=== PATIENT | female | born 1955 | race Caucasian/White ===

== ENCOUNTER → 2021-06-19 13:07 | Outpatient (BNVA) | payer OTHER, SELFPAY | PROVIDERS: PCP Internal Medicine; Visit Provider Internal Medicine | DX: I25.10 Atherosclerotic heart disease of native coronary artery without angina pectoris (principal); I10 Essential (primary) hypertension; G47.33 Obstructive sleep apnea (adult) (pediatric); E11.8 Type 2 diabetes mellitus with unspecified complications; Z95.1 Presence of aortocoronary bypass graft | CPT/HCPCS: 93005; 99212 ==

== ENCOUNTER → 2021-08-17 13:02 | Outpatient (REF) | payer OTHER, SELFPAY ==
--- NOTE | 2021-08-17 13:07 | CA_ITS ---
Transthoracic Echocardiogram Patient (Last, First, Middle): Sally Rodriguez, Gender: Female Date of : 1955 Age: 65 Procedure Date: 08/17/2021 Procedure Type: Transthoracic Echocardiogram Location: OP Height: 154.94 cm Weight: 79.38 kg BSA: 1.78 m2 Heart Rate: bpm BP: 122 / 64 mmHg Mat Linker: ROSA Referring MD: Brett Mena MD Symptoms: I25.10 - Atherosclerotic heart disease of [place] coronary... Study Quality: Fair Conclusions: - Normal left ventricular size, thickness, and systolic function. The visually estimated ejection fraction is between 55-60%. - Normal right ventricular cavity size and systolic function. - The left atrium is mildly dilated. The right atrium is normal in size. Findings Left Ventricle Normal left ventricular size, thickness, and systolic function. The visually estimated ejection fraction is between 55-60%. Regional wall motion abnormalities can not be excluded due to suboptimal endocardial definition. Diastolic function is normal for age. Right Ventricle Normal right ventricular cavity size and systolic function. Atria The left atrium is mildly dilated. The right atrium is normal in size. Aortic Valve Normal aortic valve structure and function. There is no aortic valve stenosis. There is trace (trivial) aortic valve regurgitation. Mitral Valve Normal mitral valve structure and function. There is no mitral valve regurgitation. There is no mitral valve stenosis. Pulmonic Valve Normal pulmonic valve structure and function. There is trace pulmonic valve regurgitation. Tricuspid Valve Normal tricuspid valve structure and function. There is mild to moderate tricuspid valve regurgitation. Normal right atrial pressure. There is no evidence of pulmonary hypertension. Great Vessels All visible segments of the aorta are normal in size. The visualized portions of the pulmonary artery and branches are normal. Venous The inferior vena cava is normal in size and collapses greater than 50% with inspiration. Pericardium/Pleural There is no evidence of pericardial effusion. Prior Study Comparison No prior study available for comparison. Recommendations, Care & Conclusions Recommend contrast in the future to improve endocardial definition. Measurements 2D Linear Measurements IVSd: 0.81 0.6-0.9/0.6-1.0 cm LVIDd: 5.19 3.9-5.3/4.2-5.9 cm LVIDd Index: 2.92 2.4-3.2/2.2-3.1 cm/m2 LVIDs: 2.98 2.0-3.6 cm LVPWd: 0.83 0.7-1.1 cm LA Diam: 4.10 2.7-3.8/3.0-4.0 cm LAIDs Index: 2.30 1.5-2.3 cm/m2 LV Mass: 185.82 67-162/88-224 g LV Mass Index: 104.39 43-95/49-115 g/m2 LVOT Diam: 2.00 3.0+(-)1.3 cm 2D Systolic Function EF 4C: 66.50 >55% EF 2C: 64.00 >55% EF BiP: 63.70 >55% Mitral Valve MV Pk E: 0.90 MV PK A: 0.64 MV Decel Time: 184.00 E/A: 1.40 E'Lateral: 14.90 E'Medial: 7.72 E/E' Med: 11.70 E/E' Lat: 6.10 PHT: 54.00 MVA PHT: 4.07 Decel [place]: 4.91 Aortic Valve AoV Pk Edi: 1.61 AoV Mn Edi: 1.02 AoV VTI: 0.36 AoV Pk Grad: 10.00 Aov Mn Grad: 5.00 MERYL Cont.VTI: 2.51 LVOT LVOT Pk Edi: 1.23 LVOT Mn Edi: 0.78 LVOT VTI: 0.29 LVOT Pk Grad: 6.00 LVOT Mn Grad: 3.00 LVOT Diam: 2.00 LVOT Area: 3.14 Diastolic Function MV Pk E: 0.90 MV Pk A: 0.64 E/A: 1.40 E'Medial: 7.72 E/E' Med: 11.70 E' Laterial: 14.90 E/E' Lat: 6.10 Right Ventricle TAPSE (mm): 19.10 TVS' Edi: 10.00 Tricuspid Valve TR Pk Edi: 2.51 TR Pk Grad: 25.00 RA Press: 3.00 RVSP: 28.00 Great Vessels Aorta Sinus of Valsalva: 2.78 2.0-3.[address] [place]: 2.35 1.7-3.4 cm Ao Asc: 2.70 2.1-3.4 cm Ao Arch: 3.00 Updated in Other Vendor System with Status of Final Milo Alvares MD electronically signed on 08/19/2021 10:17:16 PM with status of Final
== END ==
LOC: HO.CARD 13:02
PROVIDERS: Visit Provider Internal Medicine
DX: I25.10 Atherosclerotic heart disease of native coronary artery without angina pectoris (principal); Z95.1 Presence of aortocoronary bypass graft
CPT/HCPCS: 93306

== ENCOUNTER → 2021-09-19 15:11 | Outpatient (BNVA) | payer OTHER, SELFPAY | PROVIDERS: PCP Internal Medicine; Visit Provider Internal Medicine | DX: I25.10 Atherosclerotic heart disease of native coronary artery without angina pectoris (principal); I10 Essential (primary) hypertension; I65.23 Occlusion and stenosis of bilateral carotid arteries; E11.8 Type 2 diabetes mellitus with unspecified complications; G47.33 Obstructive sleep apnea (adult) (pediatric); Z95.1 Presence of aortocoronary bypass graft | CPT/HCPCS: 99212 ==

== ENCOUNTER → 2022-03-13 15:00 | Outpatient (BNVA) | payer OTHER, SELFPAY | PROVIDERS: PCP Internal Medicine; Visit Provider Internal Medicine | DX: I25.10 Atherosclerotic heart disease of native coronary artery without angina pectoris (principal); I65.23 Occlusion and stenosis of bilateral carotid arteries; R07.2 Precordial pain; I10 Essential (primary) hypertension; E11.8 Type 2 diabetes mellitus with unspecified complications; G47.33 Obstructive sleep apnea (adult) (pediatric); Z95.1 Presence of aortocoronary bypass graft | CPT/HCPCS: 93005; 99212 ==

== ENCOUNTER → 2022-03-26 13:03 | Outpatient (REF) | payer OTHER, SELFPAY ==
--- NOTE | 2022-03-26 13:06 | CA_ITS ---
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 Study Quality: Good ECG Rhythm: Sinus Conclusions: - The left ventricular systolic function is normal. The calculated ejection fraction is 58% by biplane method. - No obvious valvular pathology seen on this study. Findings Left Ventricle Normal left ventricular cavity size. There is mildly increased left ventricular wall thickness. The left ventricular systolic function is normal. The calculated ejection fraction is 58% by biplane method. There is no evidence of regional wall motion abnormalities. Diastolic function is normal for age. Right Ventricle Normal right ventricular cavity size and systolic function. Atria Both atria are normal in size. Aortic Valve There is a normal trileaflet aortic valve. There is no aortic valve stenosis. There is trace (trivial) aortic valve regurgitation. Mitral Valve The mitral valve appears normal. There is trace mitral valve regurgitation. There is no mitral valve stenosis. Pulmonic Valve The pulmonic valve is likely normal. Tricuspid Valve Normal tricuspid valve structure. There is mild tricuspid valve regurgitation. There is no evidence of pulmonary hypertension. Great Vessels The aortic annulus, sinuses of valsalva, and asc aorta are normal in size. Venous The inferior vena cava is normal in size and collapses greater than 50% with inspiration. Pericardium/Pleural There is a trivial pericardial effusion. Prior Study Comparison No significant change compared to prior study dated: 08/17/2021. Recommendations, Care & Conclusions No obvious valvular pathology seen on this study. Measurements 2D Linear Measurements IVSd: 1.07 0.6-0.9/0.6-1.0 cm LVIDd: 5.04 3.9-5.3/4.2-5.9 cm LVIDd Index: 2.74 2.4-3.2/2.2-3.1 cm/m2 LVIDs: 3.07 2.0-3.6 cm LVPWd: 1.06 0.7-1.1 cm Ao Root: 2.70 2.1-3.5 cm LA Diam: 4.30 2.7-3.8/3.0-4.0 cm LAIDs Index: 2.34 1.5-2.3 cm/m2 LV Mass: 250.20 67-162/88-224 g LV Mass Index: 135.98 43-95/49-115 g/m2 LVOT Diam: 2.10 3.0+(-)1.3 cm 2D Systolic Function EF 4C: 58.40 >55% EF 2C: 58.70 >55% EF BiP: 58.10 >55% Mitral Valve MV Pk E: 0.66 MV PK A: 0.99 MV Decel Time: 345.00 E/A: 0.70 E'Lateral: 9.79 E'Medial: 6.85 E/E' Med: 9.60 E/E' Lat: 6.70 PHT: 101.00 MVA PHT: 2.18 Decel [place]: 1.91 Aortic Valve AoV Pk Edi: 1.59 AoV Mn Edi: 1.14 AoV VTI: 0.45 AoV Pk Grad: 10.00 Aov Mn Grad: 6.00 MERYL Cont.VTI: 1.74 LVOT LVOT Pk Edi: 0.84 LVOT Mn Edi: 0.56 LVOT VTI: 0.22 LVOT Pk Grad: 3.00 LVOT Mn Grad: 2.00 LVOT Diam: 2.10 LVOT Area: 3.46 Diastolic Function MV Pk E: 0.66 MV Pk A: 0.99 E/A: 0.70 E'Medial: 6.85 E/E' Med: 9.60 E' Laterial: 9.79 E/E' Lat: 6.70 Right Ventricle TAPSE (mm): 18.00 TVS' Edi: 11.00 Tricuspid Valve TR Pk Edi: 2.51 TR Pk Grad: 25.00 RA Press: 3.00 RVSP: 28.00 Great Vessels Aorta Ao Root-2D: 2.70 2.0-3.7 cm Ao Asc: 2.70 2.1-3.4 cm Pulmonary Valve PV Pk Edi: 1.05 Peak PV Grad: 4.00 Updated in Other Vendor System with Status of Final Brett Mena MD electronically signed on 03/27/2022 3:58:20 PM with status of Final
== END ==
LOC: HO.CARD 13:03
PROVIDERS: Visit Provider Internal Medicine
DX: R07.2 Precordial pain (principal); I25.10 Atherosclerotic heart disease of native coronary artery without angina pectoris; Z95.1 Presence of aortocoronary bypass graft
CPT/HCPCS: 93306

== ENCOUNTER → 2022-05-15 09:32 | Outpatient (REF) | payer OTHER, SELFPAY | LOC: HO.CARD 09:32 | PROVIDERS: Visit Provider Internal Medicine | DX: Z13.89 Encounter for screening for other disorder (principal) ==

== ENCOUNTER → 2022-05-29 09:13 | Outpatient (REF) | payer OTHER, SELFPAY ==
--- NOTE | ~2022-05-29 | NM_ITS ---
Lexiscan Myocardial perfusion study Indication: Chest pain, history of bypass surgery, assess for ischemia Technique: The patient was brought in for a Lexiscan perfusion study on 05/29/2022 and was injected 0.4 mg of Lexiscan intravenously. Within a minute of this injection 30 mCi of sestamibi was given intravenously. Images were obtained using the SPECT gamma camera interlaced with the gating device. Images were obtained in supine position. Resting perfusion study was performed on 05/31/2022. Patient was administered 30 mCi of sestamibi intravenously at rest. Images were then obtained in supine position. Images were processed with the software and compared side to side in short axis, horizontal long axis and vertical long axis views. Total DLP 109mGy-cm. Findings: Raw acquisition reviewed. The stress perfusion study showed no significant perfusion abnormality. Both uncorrected as well as CT attenuation corrected images reviewed. The gated study shows normal LV systolic function with calculated LVEF of 72%. LV cavity is normal in size. The gated study shows normal wall thickening and contraction of segments. Resting study shows no significant perfusion abnormality. Gating at rest reveals normal wall motion with ejection fraction at 63%. The findings are consistent with no clear reversible or fixed perfusion defects. NM/NM merritt perf SPECT rest & str Impression: 1. Myocardial perfusion imaging study shows likely normal myocardial perfusion. No clear evidence of any ischemia or infarction. 2. Gated LVEF is 72% during stress and 63% during rest. 3. Transient ischemic dilatation not present. EKG component of the test reported separately.
--- NOTE | 2022-05-29 09:18 | CA_ITS ---
Acquisition Time: 2022-05-29 09:48:43 Total Exercise Time: 00:02:00 Test Indications: ASHD Medications: Protocol: LEXISCAN Max HR: 090 BPM 58% of Pred: 154 BPM Max BP: 144/062 mmHG Max Work Load: 1.0 METS Pharmacological stress test with Lexiscan injection, while sitting and kicking her legs, without anginal symptoms, without arrythmia, with normotensive response to injection, with nondiagnostic EKG for ischemia, there are T wave abnormalities post injection which resolve quickly. Nuclear images pending. Test reviewed with Dr Mena Referred By: Brett Mena Overread By: JONN SANDERS
== END ==
LOC: HO.CARD 09:13
PROVIDERS: PCP Internal Medicine; Visit Provider Internal Medicine
DX: I25.10 Atherosclerotic heart disease of native coronary artery without angina pectoris (principal)
CPT/HCPCS: 78452; 93017; A9500; J2785

== ENCOUNTER → 2022-06-13 14:05 | Outpatient (BNVA) | payer OTHER, SELFPAY | PROVIDERS: PCP Internal Medicine; Visit Provider Internal Medicine | DX: I25.10 Atherosclerotic heart disease of native coronary artery without angina pectoris (principal); I65.23 Occlusion and stenosis of bilateral carotid arteries; I10 Essential (primary) hypertension; G47.33 Obstructive sleep apnea (adult) (pediatric); E11.8 Type 2 diabetes mellitus with unspecified complications | CPT/HCPCS: 99212 ==

== ENCOUNTER 2022-09-04 15:11 | Outpatient (REF) | payer OTHER, SELFPAY ==
--- NOTE | ~2022-09-04 | US_ITS ---
EXAMINATION: US EXTRACRANIAL CAROTID DUPLEX, BILATERAL CLINICAL INFORMATION: Stenosis of carotid artery COMPARISON: None available. TECHNIQUE: Real-time ultrasound and Doppler techniques (integrating B-mode 2-D vascular images, Doppler spectral analysis and color-flow Doppler imaging) were utilized to interrogate the extracranial carotid arteries, the vertebral arteries and proximal subclavian arteries bilaterally. The degree of stenosis is determined by criteria similar to NASCET. FINDINGS: Right Side: 1. There is no atherosclerotic plaque seen in the bifurcation/proximal ICA region. 2. The common carotid artery PSV proximally is 95.7 cm/s and distally 60.1 cm/s. 3. The proximal internal carotid artery velocities are 68.2 cm/s systolic and 20 cm/s diastolic. 4. The proximal external carotid artery PSV is 91.6 cm/s. 5. The vertebral artery shows antegrade flow. 6. The subclavian artery waveforms are normal. Left Side: 1. There is no atherosclerotic plaque seen in the bifurcation/proximal ICA region. 2. The common carotid artery PSV proximally is 112 cm/s and distally 53.7 cm/s. 3. The proximal internal carotid artery velocities are 52.5 cm/s systolic and 20 cm/s diastolic. 4. The proximal external carotid artery PSV is 72 cm/s. 5. The vertebral artery shows antegrade flow. 6. The subclavian artery waveforms are normal. US/US carotid duplex BI IMPRESSION: 1. RIGHT: Normal right internal carotid artery without atherosclerotic plaque or hemodynamically significant stenosis. 2. LEFT: Normal left internal carotid artery without atherosclerotic plaque or hemodynamically significant stenosis.
== END 2022-09-04 15:12 | disposition home or self-care (01) ==
LOC: HO.US 15:11
PROVIDERS: PCP Internal Medicine; Visit Provider Internal Medicine
DX: I65.23 Occlusion and stenosis of bilateral carotid arteries (principal)
CPT/HCPCS: 93880

== ENCOUNTER 2023-06-17 14:14 | Outpatient (AMB) | payer OTHER, SELFPAY ==
[2023-06-17 14:25] VITALS: BP 136/76; PULSE 64; BMI 37.1
--- NOTE | 2023-06-17 14:25 | MHC.OFFVIS ---
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 Accompanied by: Self / Same As Patient Allergies oxycodone [From Percodan] Allergy (Intermediate, Verified 06/17/23 14:27) HIVES erythromycin base Adverse Reaction (Intermediate, Verified 06/17/23 14:27) GI UPSET levofloxacin [From Levaquin] Adverse Reaction (Intermediate, Verified 06/17/23 14:27) GI UPSET Sulfa (Sulfonamide Antibiotics) Adverse Reaction (Intermediate, Verified 06/17/23 14:27) HIVES Medication List - Last Reconciled 06/17/23 by Brett Mena MD aspirin 81 mg PO DAILY calcium carbonate 600 mg PO BEDTIME escitalopram oxalate 20 mg PO DAILY famotidine 20 mg PO BID gabapentin 300 mg PO DAILY immune globul G-gly-IgA avg 46 10 gram/100 mL (10 %) (Gamunex-C) mL subcut insulin detemir U-100 (Levemir FlexTouch U-100 Insulin) 10 units subcut ONCE lisinopril 20 mg PO DAILY lorazepam 0.5 mg PO BID PRN meloxicam 15 mg PO DAILY metformin 1,000 mg PO BID metoprolol tartrate 25 mg PO BID nitroglycerin 0.4 mg sublingual PRN rosuvastatin 10 mg PO BEDTIME torsemide 20 mg PO DAILY PRN HPI HPI Comments History of Present Illness Details Sally returns for follow-up regarding coronary disease and coronary artery bypass surgery. Multiple cardiovascular risk factors including type 2 diabetes, hypertension, elevated lipids. Overall, she states she is feeling good. No new complaints. No angina. [facility] Medical History Atherosclerotic cardiovascular disease Essential hypertension MARY (obstructive sleep apnea) Type 2 diabetes mellitus with unspecified complications Surgical History History of cardiac catheterization (~05/10/21) History of section History of four vessel coronary artery bypass graft (~05/17/21) History of lumpectomy of left breast History of shoulder surgery History of tonsillectomy and adenoidectomy Family History Father History of heart bypass surgery Mother History of heart bypass surgery Social History Patient Tobacco Use Status: Former Tobacco user Quit Date: 4-5 years ago Review of Systems Const Denies weakness ENT Denies dizziness Card Denies chest pain with activity, Denies syncope, Denies rapid heart rate, Denies pedal edema, Denies edema, Denies leg edema, Denies lightheadedness, Denies dyspnea, Denies dyspnea on exertion and Denies orthopnea Resp Denies cough, Denies dyspnea and Denies dyspnea on exertion GI Denies hematochezia and Denies change in stool character Musc Denies abnormal gait, Denies muscle cramps, Denies muscle weakness, Denies numbness, Denies radiating pain into limb and Denies tingling Neuro Denies abnormal gait, Denies dizziness, Denies syncope, Denies numbness, Denies tingling and Denies weakness Physical Exam Vital Signs: Last Vital Signs Pulse 64 06/17/23 14:25 BP 136/76 06/17/23 14:25 BMI result Body Mass Index 37.1 Const General: comfortable and no acute distress Orientation/consciousness: patient oriented x3 HEENT Other: Unremarkable Head: Yes normal to inspection Neck Neck: Yes normal visual inspection Chest Chest palpation & inspection: normal inspection of the chest Resp Auscultation: clear to auscultation bilaterally Cardio Palpation: normal PMI Heart sounds: S1 normal heart sound present, S2 normal heart sound present, no gallops, no murmurs and no rubs GI Palpation (GI): Soft to palpation Back/Spine/Pelvis Other: unremarkable Skin General skin exam: no rashes or lesions noted Neuro General: patient oriented x3 Extrem General: Yes normal to inspection Psych Mental Status: mental status grossly normal Office Procedures EKG Details: EKG with sinus rhythm at 64/Min; downsloping STs in the anterior leads with T inversions-V1 to V3. Normal [place] and corrected QT. Overall, similar to last EKG. [id number], Complete Assessment & Plan Assessment & Plan (1) Atherosclerotic cardiovascular disease: Code(s): I25.10 - Atherosclerotic heart disease of [place] coronary artery without angina pectoris Plan: Doing well. May remain on long-term aspirin. Continue beta-blockers statins. Last LDL 38 mg/dL. Triglycerides 145 mg/dL. (2) Bilateral carotid artery stenosis: Code(s): I65.23 - Occlusion and stenosis of bilateral carotid arteries Plan: Her preoperative carotid US showed 50-69% stenosis in the right internal carotid artery and 1-49% stenosis in the left internal carotid artery. In the repeat study from last year, no significant stenosis bilaterally. (3) Essential hypertension: Code(s): I10 - Essential (primary) hypertension Plan: Per patient, amlodipine stopped due to leg swelling. On lisinopril. No changes. (4) Type 2 diabetes mellitus with unspecified complications: Code(s): E11.8 - Type 2 diabetes mellitus with unspecified complications Plan: Her last hemoglobin A1c is 6.3%. She is on insulin and metformin. She states she will get more labs next month through her own PCP advised her to send those labs to us. (5) MARY (obstructive sleep apnea): Code(s): G47.33 - Obstructive sleep apnea (adult) (pediatric) Plan: CPAP. Coding Level of Care Code Est Pt Level 4 (35565) Diagnoses Atherosclerotic cardiovascular disease I25.10 Bilateral carotid artery stenosis I65.23 Essential hypertension I10 Type 2 diabetes mellitus with unspecified complications E11.8 MARY (obstructive sleep apnea) G47.33 CPT Codes EKG - CPT: 67716-[id number], Complete ([id number])
== END 2023-06-17 14:47 | disposition home or self-care (01) ==
PROVIDERS: Visit Provider Internal Medicine
DX: I25.10 Atherosclerotic heart disease of native coronary artery without angina pectoris (principal); I65.23 Occlusion and stenosis of bilateral carotid arteries; I10 Essential (primary) hypertension; E11.8 Type 2 diabetes mellitus with unspecified complications; G47.33 Obstructive sleep apnea (adult) (pediatric)
CPT/HCPCS: 93010; 99214

== ENCOUNTER → 2023-06-17 14:14 | Outpatient (BNVA) | payer OTHER, SELFPAY | PROVIDERS: Visit Provider Internal Medicine | DX: I25.10 Atherosclerotic heart disease of native coronary artery without angina pectoris (principal); I65.23 Occlusion and stenosis of bilateral carotid arteries; I10 Essential (primary) hypertension; E11.8 Type 2 diabetes mellitus with unspecified complications; G47.33 Obstructive sleep apnea (adult) (pediatric); Z79.4 Long term (current) use of insulin; Z79.82 Long term (current) use of aspirin; Z79.899 Other long term (current) drug therapy | CPT/HCPCS: 93005; 99212 ==

== ENCOUNTER 2023-10-22 13:42 | Outpatient (AMB) | payer OTHER, SELFPAY ==
--- NOTE | 2023-10-22 13:46 | A.OFFVIS_ITS ---
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: No Allergies oxycodone [From Percodan] Allergy (Intermediate, Verified 06/17/23 14:27) HIVES erythromycin base Adverse Reaction (Intermediate, Verified 06/17/23 14:27) GI UPSET levofloxacin [From Levaquin] Adverse Reaction (Intermediate, Verified 06/17/23 14:27) GI UPSET Sulfa (Sulfonamide Antibiotics) Adverse Reaction (Intermediate, Verified 06/17/23 14:27) HIVES Medication List - Last Reconciled 10/22/23 by Brett Mena MD aspirin 81 mg PO DAILY calcium carbonate 600 mg PO BEDTIME dulaglutide (Trulicity) 0.75 mg subcut QWEEK escitalopram oxalate 20 mg PO DAILY famotidine 20 mg PO BID gabapentin 300 mg PO DAILY immune globul G-gly-IgA avg 46 10 gram/100 mL (10 %) (Gamunex-C) mL subcut insulin detemir U-100 (Levemir FlexTouch U-100 Insulin) 10 units subcut ONCE lorazepam 0.5 mg PO BID PRN meloxicam 15 mg PO DAILY metformin 1,000 mg PO BID metoprolol tartrate 25 mg PO BID nitroglycerin 0.4 mg sublingual PRN rosuvastatin 10 mg PO BEDTIME torsemide 20 mg PO DAILY PRN HPI Comments Details: Sally returns for follow-up regarding coronary disease and coronary artery bypass surgery. Multiple cardiovascular risk factors including type 2 diabetes, hypertension, elevated lipids. Over the last few weeks, she states that she is getting substernal discomfort. This is radiating to the shoulders. She feels as though this is reminiscent of the time she had the original admission for CABG. Lot of times, this exertional but sometimes she is noticing at rest as well. Anginal sounding. [facility] Medical History Atherosclerotic cardiovascular disease Essential hypertension MARY (obstructive sleep apnea) Type 2 diabetes mellitus with unspecified complications Surgical History History of cardiac catheterization (~05/10/21) History of section History of four vessel coronary artery bypass graft (~05/17/21) History of lumpectomy of left breast History of shoulder surgery History of tonsillectomy and adenoidectomy Family History Father History of heart bypass surgery Mother History of heart bypass surgery Social History Patient Tobacco Use Status: Former Tobacco user Quit Date: 4-5 years ago Review of Systems Const Denies chills, Denies fatigue, Denies fever(s), Denies frequent falls, Denies weakness, Denies weight gain and Denies weight loss ENT Denies dizziness Card Denies chest pain, Denies leg edema, Denies lightheadedness, Denies palpitations, Denies dyspnea, Denies dyspnea on exertion, Denies orthopnea and Denies other (loss of consciousness) Resp Denies cough, Denies dyspnea and Denies dyspnea on exertion GI Denies hematochezia and Denies change in stool character Musc Denies abnormal gait, Denies muscle weakness, Denies numbness, Denies radiating pain into limb and Denies tingling Neuro Denies abnormal gait, Denies dizziness, Denies frequent falls, Denies numbness, Denies tingling and Denies weakness Endo Denies fatigue and Denies palpitations Physical Exam Vital Signs: Last Vital Signs Pulse 73 10/22/23 13:47 BP 120/80 10/22/23 13:47 BMI result Body Mass Index 36.7 Const General: comfortable and no acute distress Orientation/consciousness: patient oriented x3 HEENT Other: Unremarkable Head: Yes normal to inspection Neck Neck: Yes normal visual inspection Chest Chest palpation & inspection: normal inspection of the chest Resp Auscultation: clear to auscultation bilaterally Cardio Palpation: normal PMI Heart sounds: S1 normal heart sound present, S2 normal heart sound present, no gallops, no murmurs and no rubs GI Palpation (GI): Soft to palpation Back/Spine/Pelvis Other: unremarkable Skin General skin exam: no rashes or lesions noted Neuro General: patient oriented x3 Extrem General: Yes normal to inspection Psych Mental Status: mental status grossly normal Office Procedures EKG Details: EKG with sinus rhythm at 73/Min; downsloping ST with T inversion in the anterior/anterolateral leads and overall similar to prior. [id number], Complete Assessment & Plan Assessment & Plan (1) Atherosclerotic cardiovascular disease: Code(s): I25.10 - Atherosclerotic heart disease of [place] coronary artery without angina pectoris Category: Medical Plan: Due to recent complaints of chest tightness during exertion as well as rest, proceed with diagnostic cardiac catheterization. Scheduled for tomorrow. In the interim, continue aspirin, beta-blockers and statins. Last LDL 38 mg/dL. Triglycerides 145 mg/dL. (2) Bilateral carotid artery stenosis: Code(s): I65.23 - Occlusion and stenosis of bilateral carotid arteries Category: Medical Plan: Her preoperative carotid US showed 50-69% stenosis in the right internal carotid artery and 1-49% stenosis in the left internal carotid artery. In the repeat study from 2022, no significant stenosis bilaterally. (3) Essential hypertension: Code(s): I10 - Essential (primary) hypertension Category: Medical Plan: Stable. No changes. (4) Type 2 diabetes mellitus with unspecified complications: Code(s): E11.8 - Type 2 diabetes mellitus with unspecified complications Category: Medical Plan: She is on insulin, Trulicity, metformin. Blood sugar in the most recent labs from [facility] 124 mg/dL. (5) MARY (obstructive sleep apnea): Code(s): G47.33 - Obstructive sleep apnea (adult) (pediatric) Category: Medical Plan: CPAP. Orders: Orders Cardiac Cath LT Diagnostic Today I25.10 - Atherosclerotic heart disease of [place] coronary artery without angina pectoris Basic Metabolic Panel Today I25.10 - Atherosclerotic heart disease of [place] coronary artery without angina pectoris Complete Blood Count no Diff Today I25.10 - Atherosclerotic heart disease of [place] coronary artery without angina pectoris Prothrombin Time INR Today I25.10 - Atherosclerotic heart disease of [place] coronary artery without angina pectoris Coding Level of Care Code Est Pt Level 4 (59366) Diagnoses Atherosclerotic cardiovascular disease I25.10 Bilateral carotid artery stenosis I65.23 Essential hypertension I10 Type 2 diabetes mellitus with unspecified complications E11.8 MARY (obstructive sleep apnea) G47.33 CPT Codes EKG - CPT: 46331-[id number], Complete ([id number])
[2023-10-22 13:47] VITALS: BP 120/80; PULSE 73; BMI 36.7
== END 2023-10-22 14:38 | disposition home or self-care (01) ==
PROVIDERS: PCP Internal Medicine; Visit Provider Internal Medicine
DX: I25.10 Atherosclerotic heart disease of native coronary artery without angina pectoris (principal); I65.23 Occlusion and stenosis of bilateral carotid arteries; I10 Essential (primary) hypertension; E11.8 Type 2 diabetes mellitus with unspecified complications; G47.33 Obstructive sleep apnea (adult) (pediatric)
CPT/HCPCS: 93010; 99214

== ENCOUNTER 2023-10-22 13:42 | Outpatient (REF) | payer OTHER, SELFPAY ==
[2023-10-22 15:20] LABS: Prothrombin Time 12.3 SEC (11.1-13.3)
[2023-10-22 15:24] LABS: Hematocrit 37.1 % (37.0-47.0); Hemoglobin 12.3 g/dl (12.0-16.0); Mean Corpuscular HGB Conc 33.2 g/dl (31.0-35.0); Mean Corpuscular Hemoglobin 29.9 pg (27.0-33.0); Mean Platelet Volume 9.3 fL (9.4-12.3); Platelet Count 288 X10*3/uL (160-400); Red Blood Count 4.12 X10*6/uL (4.20-5.50); Red Cell Distribution Width 14.4 % (11.0-16.0); White Blood Count 8.2 X10*3/uL (4.8-10.8)
[2023-10-22 15:44] LABS: Anion Gap 14 (12-20); Blood Urea Nitrogen 34 mg/dL (9-16); Calcium 10.1 mg/dL (8.4-10.2); Carbon Dioxide 25 mmol/L (22-29); Chloride 101 mmol/L (96-108); Estimated Glomerular Filt Rate 29; Glucose Random 124 mg/dL (60-115); Potassium 4.9 mmol/L (3.3-5.1); Sodium 135 mmol/L (135-145)
== END 2023-10-22 13:43 | disposition home or self-care (01) ==
LOC: HO.LAB 13:42
PROVIDERS: PCP Internal Medicine; Visit Provider Internal Medicine
DX: I25.10 Atherosclerotic heart disease of native coronary artery without angina pectoris (principal); I65.23 Occlusion and stenosis of bilateral carotid arteries; I10 Essential (primary) hypertension; E11.8 Type 2 diabetes mellitus with unspecified complications; G47.33 Obstructive sleep apnea (adult) (pediatric)
CPT/HCPCS: 36415; 80048; 85027; 85610; 93005; 99212

== ENCOUNTER → 2023-10-23 23:59 | Outpatient (BNV) | payer OTHER, SELFPAY | PROVIDERS: PCP Internal Medicine; Visit Provider Internal Medicine Cardiovascular Disease | DX: I20.0 Unstable angina (principal); Z95.1 Presence of aortocoronary bypass graft | CPT/HCPCS: 93459; 99152 ==

== ENCOUNTER 2024-01-01 13:32 | Outpatient (AMB) | payer OTHER, SELFPAY ==
[2024-01-01 13:44] VITALS: BP 124/68; PULSE 78; BMI 37.1
--- NOTE | 2024-01-01 13:44 | MHC.OFFVIS ---
Vital Signs 01/01/24 13:44 Height 5 ft 1 in Weight 196 lb 3.382 oz BMI 37.1 BP 124/68 Blood Pressure Location Lt brachial Position Sitting Pulse 78 Pulse Source Pulse Oximeter Intake Visit Reasons: F/U Cardiac Cath Allergies oxycodone [From Percodan] Allergy (Intermediate, Verified 06/17/23 14:27) HIVES erythromycin base Adverse Reaction (Intermediate, Verified 06/17/23 14:27) GI UPSET levofloxacin [From Levaquin] Adverse Reaction (Intermediate, Verified 06/17/23 14:27) GI UPSET Sulfa (Sulfonamide Antibiotics) Adverse Reaction (Intermediate, Verified 06/17/23 14:27) HIVES Medication List - Last Reconciled 01/01/24 by Jessy Rico NP aspirin 81 mg PO DAILY calcium carbonate 600 mg PO BEDTIME dulaglutide (Trulicity) 0.75 mg subcut QWEEK escitalopram oxalate 20 mg PO DAILY famotidine 20 mg PO BID gabapentin 300 mg PO DAILY immune globul G-gly-IgA avg 46 10 gram/100 mL (10 %) (Gamunex-C) mL subcut insulin detemir U-100 (Levemir FlexTouch U-100 Insulin) 10 units subcut ONCE lorazepam 0.5 mg PO BID PRN meloxicam 15 mg PO DAILY metformin 1,000 mg PO BID metoprolol tartrate 25 mg PO BID nitroglycerin 0.4 mg sublingual PRN rosuvastatin 10 mg PO BEDTIME torsemide 20 mg PO DAILY PRN HPI Comments Details: 68-year-old female presents today for a follow-up visit after cardiac catheterization. She reports she is overall doing well. She states she is still having occasional chest discomfort mostly noted upon deep inspiration. She also reports she has been getting short of breath with exertion. She states her systolic blood pressures at home have been between 110-140 and her diastolic between 80 and 95. These readings are taken before medication. She reports her last A1c was 7.1. She reports compliance with her CPAP machine. She reports no issues where they accessed her for the cardiac catheterization. They used the right groin. [facility] Medical History Asthma Shortness of breath MARY (obstructive sleep apnea) Type 2 diabetes mellitus with unspecified complications Essential hypertension Atherosclerotic cardiovascular disease Surgical History (Updated 01/02/24 @ 12:40 by Jessy Rico NP) S/P cardiac catheterization History of shoulder surgery History of section History of tonsillectomy and adenoidectomy History of lumpectomy of left breast History of cardiac catheterization (~05/10/21) History of four vessel coronary artery bypass graft (~05/17/21) Family History Father History of heart bypass surgery Mother History of heart bypass surgery Social History Patient Tobacco Use Status: Former Tobacco user Review of Systems Const Denies weakness ENT Denies dizziness Card Denies chest pain, Denies chest pain with activity, Denies syncope, Denies rapid heart rate, Denies pedal edema, Denies edema, Denies leg edema, Denies lightheadedness, Denies palpitations, Denies dyspnea, Denies dyspnea on exertion and Denies orthopnea Resp Denies cough, Denies dyspnea and Denies dyspnea on exertion GI Denies hematochezia and Denies change in stool character Musc Denies abnormal gait, Denies muscle cramps, Denies muscle weakness, Denies numbness, Denies radiating pain into limb and Denies tingling Neuro Denies abnormal gait, Denies dizziness, Denies syncope, Denies numbness, Denies tingling and Denies weakness Endo Denies palpitations Physical Exam Vital Signs: Last Vital Signs Pulse 78 01/01/24 13:44 BP 124/68 01/01/24 13:44 BMI result Body Mass Index 37.1 Assessment & Plan Assessment & Plan (1) S/P cardiac catheterization: Comment: 10/23/[address] Alvares Cardiac Arteries and Lesion Findings LMCA: Normal. LAD: Mid LAD 99% stenosis with patent LANDERS graft to LAD with competitive flow. Diffuse severe proximal LAD and diagonal stenosis with patent vein graft to diagonal. RCA: Moderate disease in the RCA. Ostial PDA 100% stenosis. Mid PLV 100%. Patent vein graft to PDA and PLV. Vein graft to PDA has proximal valve but no stenosis. Cardiac Collaterals - collateral flow from the 1st Septal to the 1st RPL. - collateral flow from the 1st Diag to the 1st RPL. Diagnostic Recommendations Continue aspirin 81 mg/day indefinitely. Aggressive secondary risk factor modification according to ATP III guidelines. Depending on blood pressure we will try to antianginals further. Consider alternative workup starting with pulmonology as she has known history of asthma. Code(s): Z98.890 - Other specified postprocedural states Category: Surgical (2) Atherosclerotic cardiovascular disease: Code(s): I25.10 - Atherosclerotic heart disease of [place] coronary artery without angina pectoris Category: Medical (3) Shortness of breath: Code(s): R06.02 - Shortness of breath Category: Medical Plan: Continued shortness of breath, she reports she does not like to use her asthma inhaler. We will refer her to pulmonology for evaluation and treatment. Plan Status post bypass grafting back in 2020 with recent cardiac catheterization showing patent grafts. Continue aspirin 81 mg daily indefinitely. She has had some low blood pressures at home per her prior to medication. Asked to please check her blood pressures before and 1-2 hours after taking her medications over the next few days and report them to us. Can consider antianginal pending blood pressure readings. No recent lipid panel. We will request her to get a fasting lipid panel soon. She is on rosuvastatin, metoprolol tartrate, and low-dose aspirin. Orders: Orders Lipid Panel Today I25.10 - Atherosclerotic heart disease of [place] coronary artery without angina pectoris Basic Metabolic Panel Today I25.10 - Atherosclerotic heart disease of [place] coronary artery without angina pectoris Referrals Pulmonology Referral J45.909 - Unspecified asthma, uncomplicated, R06.02 - Shortness of breath Coding Level of Care Code Est Pt Level 4 (03613) Diagnoses S/P cardiac catheterization Z98.890 Atherosclerotic cardiovascular disease I25.10 Shortness of breath R06.02
== END 2024-01-01 14:12 | disposition home or self-care (01) ==
PROVIDERS: PCP Internal Medicine; Visit Provider Nurse Practitioner
DX: Z98.890 Other specified postprocedural states (principal); I25.10 Atherosclerotic heart disease of native coronary artery without angina pectoris; R06.02 Shortness of breath
CPT/HCPCS: 99214

== ENCOUNTER → 2024-01-01 13:32 | Outpatient (BNVA) | payer OTHER, SELFPAY | PROVIDERS: PCP Internal Medicine; Visit Provider Nurse Practitioner | DX: I25.10 Atherosclerotic heart disease of native coronary artery without angina pectoris (principal); R06.02 Shortness of breath; Z98.890 Other specified postprocedural states | CPT/HCPCS: 99212 ==

== ENCOUNTER 2024-01-12 14:06 | Outpatient (AMB) | payer OTHER, SELFPAY ==
--- NOTE | 2024-01-12 14:09 | A.OFFVIS_ITS ---
Vital Signs 01/12/24 14:10 Height 5 ft 1 in Weight 196 lb 3.382 oz BMI 37.1 BP 146/78 H Blood Pressure Location Rt brachial Position Sitting Pulse 72 Pulse Source Pulse Oximeter Pulse Oximetry (%) 95 Oxygen Delivery Method Room Air Intake Visit Reasons: SOB/ asthma Allergies oxycodone [From Percodan] Allergy (Intermediate, Verified 01/12/24 14:14) HIVES erythromycin base Adverse Reaction (Intermediate, Verified 01/12/24 14:14) GI UPSET levofloxacin [From Levaquin] Adverse Reaction (Intermediate, Verified 01/12/24 14:14) GI UPSET Sulfa (Sulfonamide Antibiotics) Adverse Reaction (Intermediate, Verified 01/12/24 14:14) HIVES HPI HPI SOB/ asthma: Details: Sally is a pleasant 68 year old female, less than 10 pack year history, with underlying asthma, MARY on CPAP, DMII, CAD s/p CABG 2021, and hypogammaglobulinemia SC weekly Dr Beck. She was referred by cardiology for pulmonary evaluation. She reports dyspnea on exertion and rest in addition to chest tightness and dry cough. Occasionally she reports pleuritic pain with inspiration. She also reports seasonal allergies with post nasal drip. She is prescribed ventolin however uses infrequently as she has significant tachycardia and tremors. She denies trialing a daily inhaler. She reports recent normal cardiac cath. She has been prescribed diuretics after IVIG infusion, as she develops intermittent BLE edema and orthopnea. Echo 2021 revealed LVEF 58%. She reports h/o severe MARY on CPAP therapy through [facility]. She denies any pertinent family history. She denies any occupational exposures. [facility] Medical History (Updated 01/12/24 @ 14:54 by Genie Espinal NP) Asthma Shortness of breath MARY (obstructive sleep apnea) Type 2 diabetes mellitus with unspecified complications Essential hypertension Atherosclerotic cardiovascular disease Surgical History (Updated 01/02/24 @ 12:40 by Jessy Rico NP) S/P cardiac catheterization History of shoulder surgery History of section History of tonsillectomy and adenoidectomy History of lumpectomy of left breast History of cardiac catheterization (~05/10/21) History of four vessel coronary artery bypass graft (~05/17/21) Family History Father History of heart bypass surgery Mother History of heart bypass surgery Social History Patient Tobacco Use Status: Former Tobacco user Review of Systems Const Denies chills, Denies excessive sweating, Denies fever(s), Denies headache(s) and Denies night sweats Eyes Denies dry eyes, Denies irritation and Denies itchy eyes ENT Reports Normal hearing present, Denies headache(s), Denies nasal congestion, Denies nasal discharge and Denies sore throat Card Denies chest pain, Denies chest pain at rest, Denies chest pain with activity, Denies claudication and Denies paroxysmal nocturnal dyspnea Resp Denies chest congestion, Denies excessive phlegm production, Denies pain on inspiration, Denies pain with cough and Denies stridor Musc Denies myalgias Neuro Reports Normal hearing present and Denies headache(s) Endo Denies excessive sweating Antelmo/Lymph Denies lymphadenopathy Aller/Immun Denies itchy eyes and Denies seasonal rhinorrhea Physical Exam Vital Signs: Last Vital Signs Pulse 72 01/12/24 14:10 BP 146/78 H 01/12/24 14:10 Pulse Ox 95 01/12/24 14:10 Oxygen Delivery Method Room Air 01/12/24 14:10 BMI result Body Mass Index 37.1 Const General: cooperative, healthy appearing, comfortable, no acute distress, well developed and alert Orientation/consciousness: patient oriented x3 Limitations: no limitations HEENT Head: Yes normal to inspection, Yes normocephalic and Yes atraumatic Ears: hearing grossly normal bilaterally and external ears normal Eyes General: appearance normal, both eyes and all related structures Eyelids: Yes eyelids normal Sclerae: sclerae normal EOM: EOMs intact bilaterally Neck Neck: Yes normal visual inspection and Yes no lymphadenopathy Lymphatic: no lymphadenopathy noted Chest Chest palpation & inspection: normal inspection of the chest Resp Effort & Inspection: normal respiratory effort, able to speak in complete sentences, no audible wheezes, no cough, no stridor, not tachypneic, no tripod positioning and no use of accessory muscles Auscultation: clear to auscultation bilaterally Cardio Jugular venous distension: no JVD Rate: regular rate Rhythm: regular rhythm Skin Other: warm, dry General skin exam: no rashes or lesions noted Neuro General: patient oriented x3 Cranial nerves: Yes Normal hearing present Cognition (Neuro): normal cognition Gait exam (Neuro): Normal gait present Extrem General: Yes normal to inspection, Yes capillary refill normal, Yes no clubbing, cyanosis or edema and Yes no pedal edema Psych Appearance: grossly normal and well kempt Speech and movement: Normal speech and movement present and Clear speech present Affect: normal affect Attitude: cooperative Thought process: Normal thought process present Thought content: Normal thought content present Insight: Good insight present (Psych) Judgement: Good judgement present (Psych) Assessment & Plan Assessment & Plan (1) Asthma: Code(s): J45.909 - Unspecified asthma, uncomplicated Category: Medical (2) MARY (obstructive sleep apnea): Code(s): G47.33 - Obstructive sleep apnea (adult) (pediatric) Category: Medical (3) Pleuritic pain: Code(s): R07.81 - Pleurodynia Category: Medical Plan Sally likely has some pulmonary contribution, will send for PFT to assess and trial ICS inhaler. Discussed importance of good oral hygiene to prevent thrush. Will send for CXR to assess etiology of pleuritic discomfort. All questions were answered and patient is in agreement of plan. Will follow up in 4-6 weeks or sooner if needed. Orders: Orders XR chest 2V 01/12/24 R07.81 - Pleurodynia Medications: New fluticasone furoate 100 mcg/actuation (Arnuity Ellipta) 1 inh inhalation DAILY 30 ea 3RF ipratropium bromide administer into each nostril 2 sprays intranasal BID 30 mL 3RF Coding Level of Care Code New Pt Level 4 (07340) Diagnoses Asthma J45.909 MARY (obstructive sleep apnea) G47.33 Pleuritic pain R07.81
[2024-01-12 14:10] VITALS: BP 146/78; PULSE 72; O2SAT 95; BMI 37.1
== END 2024-01-12 15:07 | disposition home or self-care (01) ==
PROVIDERS: PCP Internal Medicine; Referring Provider Nurse Practitioner; Visit Provider Nurse Practitioner Family
DX: J45.909 Unspecified asthma, uncomplicated (principal); G47.33 Obstructive sleep apnea (adult) (pediatric); R07.81 Pleurodynia
CPT/HCPCS: 99204

== ENCOUNTER 2024-01-12 14:06 | Outpatient (REF) | payer OTHER, SELFPAY ==
--- NOTE | ~2024-01-12 | XR_ITS ---
EXAMINATION: XR CHEST CLINICAL INFORMATION: R07.81 - Pleurodynia COMPARISON: None TECHNIQUE: 2 views of the chest FINDINGS: Lines and tubes: Median sternotomy wires and mediastinal surgical clips. Partially imaged reversed right shoulder arthroplasty. Patchy bibasilar medial airspace opacities which may reflect aspiration, multifocal infection or atelectasis, recommend correlation with clinical symptoms and repeat radiographs to ensure resolution. No pleural effusion. No pneumothorax. Normal cardiomediastinal silhouette. XR/XR chest 2V IMPRESSION: 1. Patchy bibasilar medial airspace opacities which may reflect aspiration, multifocal infection or atelectasis, recommend correlation with clinical symptoms and repeat radiographs to ensure resolution. The report will be called to the ordering clinician by a [facility] Physician Electroneurodiagnostic Technologist. Electronically signed by: Rosalia Levy MD 02/05/2024 04:38 PM EDT
== END 2024-01-12 14:07 | disposition home or self-care (01) ==
LOC: HO.LAB 14:06
PROVIDERS: Absent Provider Nurse Practitioner; PCP Internal Medicine; Referring Provider Nurse Practitioner; Visit Provider Nurse Practitioner Family
DX: R07.81 Pleurodynia (principal); J45.909 Unspecified asthma, uncomplicated; G47.33 Obstructive sleep apnea (adult) (pediatric)
CPT/HCPCS: 71046; 99202

== ENCOUNTER 2024-01-28 09:23 | Outpatient (REF) | payer OTHER, SELFPAY ==
[2024-01-28 10:33] LABS: Anion Gap 15 (12-20); Blood Urea Nitrogen 40 mg/dL (9-16); Calcium 9.8 mg/dL (8.4-10.2); Carbon Dioxide 24 mmol/L (22-29); Chloride 105 mmol/L (96-108); Cholesterol 113 mg/dL (<200); Estimated Glomerular Filt Rate 32; Glucose Random 178 mg/dL (60-115); HDL Cholesterol 31 mg/dL (>40); LDL Cholesterol Calculated 46 mg/dL (<100); Potassium 4.8 mmol/L (3.3-5.1); Sodium 139 mmol/L (135-145); Triglycerides 183 mg/dL (<150)
== END 2024-01-28 09:24 | disposition home or self-care (01) ==
LOC: HO.LAB 09:23
PROVIDERS: PCP Internal Medicine; Visit Provider Nurse Practitioner
DX: I25.10 Atherosclerotic heart disease of native coronary artery without angina pectoris (principal)
CPT/HCPCS: 36415; 80048; 80061

== ENCOUNTER 2024-03-05 11:15 | Outpatient (REF) | payer OTHER, SELFPAY | END 2024-03-05 11:16 | disposition home or self-care (01) | LOC: HO.XRAY 11:15 | PROVIDERS: Visit Provider Nurse Practitioner Family | DX: R07.81 Pleurodynia (principal) | CPT/HCPCS: 71046 ==

== ENCOUNTER 2024-03-15 14:59 | Outpatient (AMB) | payer OTHER, SELFPAY ==
[2024-03-15 15:27] VITALS: BP 134/78; PULSE 62; O2SAT 95; BMI 36.0
--- NOTE | 2024-03-15 15:27 | A.OFFVIS_ITS ---
Vital Signs 03/15/24 15:27 Height 5 ft 1 in Weight 190 lb 11.198 oz BMI 36.0 BP 134/78 Blood Pressure Location Lt brachial Position Sitting Pulse 62 Pulse Source Pulse Oximeter Pulse Oximetry (%) 95 Oxygen Delivery Method Room Air Intake Visit Reasons: Asthma/PFT Follow Up Allergies oxycodone [From Percodan] Allergy (Intermediate, Verified 03/15/24 15:30) HIVES erythromycin base Adverse Reaction (Intermediate, Verified 03/15/24 15:30) GI UPSET levofloxacin [From Levaquin] Adverse Reaction (Intermediate, Verified 03/15/24 15:30) GI UPSET Sulfa (Sulfonamide Antibiotics) Adverse Reaction (Intermediate, Verified 03/15/24 15:30) HIVES HPI HPI Asthma/PFT Follow Up: Details: Sally is a pleasant 68 year old female, less than 10 pack year history, with underlying asthma, severe MARY on CPAP, DMII, CAD s/p CABG 2021, and hypogammaglobulinemia [place] weekly Dr Beck. She has been prescribed diuretics after IVIG infusion, as she develops intermittent BLE edema and orthopnea. Echo 2021 revealed LVEF 58%. At the last visit she was started on Arnuity with improvement in chest tightness and cough however continues with dyspnea on exertion. PFT order was also placed and awaiting this to be scheduled. She also notes since starting she has had increased hoarseness as well as throat and mouth irritation despite good oral hygiene. She had been treated with nystatin swish and swallow with resolution of symptoms. She is requesting CPAP therapy to be managed by this office. [employer] is her [employer]. [facility] Medical History (Updated 03/15/24 @ 19:13 by Genie Espinal NP) Asthma Shortness of breath MARY (obstructive sleep apnea) Type 2 diabetes mellitus with unspecified complications Essential hypertension Atherosclerotic cardiovascular disease Surgical History (Updated 01/02/24 @ 12:40 by Jessy Rico NP) S/P cardiac catheterization History of shoulder surgery History of section History of tonsillectomy and adenoidectomy History of lumpectomy of left breast History of cardiac catheterization (~05/10/21) History of four vessel coronary artery bypass graft (~05/17/21) Family History Father History of heart bypass surgery Mother History of heart bypass surgery Social History Patient Tobacco Use Status: Former Tobacco user Review of Systems Const Denies chills, Denies excessive sweating, Denies fever(s), Denies headache(s) and Denies night sweats Eyes Denies dry eyes, Denies irritation and Denies itchy eyes ENT Reports Normal hearing present, Denies headache(s), Denies nasal congestion, Denies nasal discharge and Denies sore throat Card Denies chest pain, Denies chest pain at rest, Denies chest pain with activity, Denies claudication and Denies paroxysmal nocturnal dyspnea Resp Denies chest congestion, Denies excessive phlegm production, Denies pain on inspiration, Denies pain with cough and Denies stridor Musc Denies myalgias Neuro Reports Normal hearing present and Denies headache(s) Endo Denies excessive sweating Antelmo/Lymph Denies lymphadenopathy Aller/Immun Denies itchy eyes and Denies seasonal rhinorrhea Physical Exam Vital Signs: Last Vital Signs Pulse 62 03/15/24 15:27 BP 134/78 03/15/24 15:27 Pulse Ox 95 03/15/24 15:27 Oxygen Delivery Method Room Air 03/15/24 15:27 BMI result Body Mass Index 36.0 Const General: cooperative, healthy appearing, comfortable, no acute distress, well developed and alert Orientation/consciousness: patient oriented x3 Limitations: no limitations HEENT Head: Yes normal to inspection, Yes normocephalic and Yes atraumatic Ears: hearing grossly normal bilaterally and external ears normal Eyes General: appearance normal, both eyes and all related structures Eyelids: Yes eyelids normal Sclerae: sclerae normal EOM: EOMs intact bilaterally Neck Neck: Yes normal visual inspection and Yes no lymphadenopathy Lymphatic: no lymphadenopathy noted Chest Chest palpation & inspection: normal inspection of the chest Resp Effort & Inspection: normal respiratory effort, able to speak in complete sentences, no audible wheezes, no cough, no stridor, not tachypneic, no tripod positioning and no use of accessory muscles Auscultation: clear to auscultation bilaterally Cardio Jugular venous distension: no JVD Rate: regular rate Rhythm: regular rhythm Skin Other: warm, dry General skin exam: no rashes or lesions noted Neuro General: patient oriented x3 Cranial nerves: Yes Normal hearing present Cognition (Neuro): normal cognition Gait exam (Neuro): Normal gait present Extrem General: Yes normal to inspection, Yes capillary refill normal, Yes no clubbing, cyanosis or edema and Yes no pedal edema Psych Appearance: grossly normal and well kempt Speech and movement: Normal speech and movement present and Clear speech present Affect: normal affect Attitude: cooperative Thought process: Normal thought process present Thought content: Normal thought content present Insight: Good insight present (Psych) Judgement: Good judgement present (Psych) Assessment & Plan Assessment & Plan (1) Asthma: Code(s): J45.909 - Unspecified asthma, uncomplicated Category: Medical (2) MARY (obstructive sleep apnea): Code(s): G47.33 - Obstructive sleep apnea (adult) (pediatric) Category: Medical (3) Pleuritic pain: Code(s): R07.81 - Pleurodynia Category: Medical Plan Will switch Arnuity to Alvesco as she cannot tolerate the dry powder inhaler. She was also given a spacer in office to use with new inhaler. At this time would like to avoid LABA component as patient reports significant tremors and tachycardia with albuterol use. She reports increased hoarseness over the last few weeks which could be attributed to the ICS however because patient with persistent hoarseness prior to starting the ICS, will enter a referral to ENT. She previously reported pleuritic pain which has significantly improved awaiting final read on chest x-ray. She is requesting CPAP therapy be managed by this office, will send prescription for supply order to obtain compliance report and pressure settings. All questions were answered and patient is in agreement of plan. Will follow-up in 6-8 weeks or sooner if needed. Orders: Referrals Ear/Nose/Throat Referral R49.0 - Dysphonia Medications: New ciclesonide 80 mcg/actuation (Alvesco) 2 puffs inhalation BID 6.1 grams 3RF Discontinued fluticasone furoate 100 mcg/actuation (Arnuity Ellipta) Discontinued Reason: Patient Completed Course 1 inh inhalation DAILY 30 ea 3RF Coding Level of Care Code Est Pt Level 4 (26774) Diagnoses Asthma J45.909 MARY (obstructive sleep apnea) G47.33 Pleuritic pain R07.81
== END 2024-03-15 15:59 | disposition home or self-care (01) ==
PROVIDERS: PCP Internal Medicine; Visit Provider Nurse Practitioner Family
DX: J45.909 Unspecified asthma, uncomplicated (principal); G47.33 Obstructive sleep apnea (adult) (pediatric); R07.81 Pleurodynia
CPT/HCPCS: 99214

== ENCOUNTER → 2024-03-15 14:59 | Outpatient (BNVA) | payer OTHER, SELFPAY | PROVIDERS: PCP Internal Medicine; Visit Provider Nurse Practitioner Family | DX: J45.909 Unspecified asthma, uncomplicated (principal); G47.33 Obstructive sleep apnea (adult) (pediatric); R07.81 Pleurodynia | CPT/HCPCS: 99212 ==

== ENCOUNTER 2024-04-29 13:38 | Outpatient (AMB) | payer OTHER, SELFPAY ==
--- NOTE | 2024-04-29 13:46 | A.OFFVIS_ITS ---
Vital Signs 04/29/24 13:47 Height 5 ft 1 in Weight 191 lb 12.835 oz BMI 36.2 BP 112/58 L Blood Pressure Location Lt brachial Position Sitting Pulse 68 Pulse Source Pulse Oximeter Intake Visit Reasons: 4m follow up Allergies oxycodone [From Percodan] Allergy (Intermediate, Verified 03/15/24 15:30) HIVES erythromycin base Adverse Reaction (Intermediate, Verified 03/15/24 15:30) GI UPSET levofloxacin [From Levaquin] Adverse Reaction (Intermediate, Verified 03/15/24 15:30) GI UPSET Sulfa (Sulfonamide Antibiotics) Adverse Reaction (Intermediate, Verified 03/15/24 15:30) HIVES Medication List - Last Reconciled 04/29/24 by Brett Mena MD aspirin 81 mg PO DAILY calcium carbonate 600 mg PO BEDTIME ciclesonide 80 mcg/actuation (Alvesco) 2 puffs inhalation BID dapagliflozin propanediol (Farxiga) 5 mg PO DAILY doxycycline hyclate 100 mg PO BID dulaglutide (Trulicity) 0.75 mg subcut QWEEK escitalopram oxalate 20 mg PO DAILY famotidine 20 mg PO BID gabapentin 300 mg PO DAILY ipratropium bromide 2 sprays intranasal BID lorazepam 0.5 mg PO BID PRN meloxicam 15 mg PO DAILY metformin 1,000 mg PO BID metoprolol tartrate 25 mg PO BID nitroglycerin 0.4 mg sublingual PRN nystatin 400,000 units (4 mL) buccal QID rosuvastatin 10 mg PO BEDTIME torsemide 20 mg PO DAILY PRN HPI Comments Details: Sally returns for follow-up. History of coronary disease and bypass surgery. Multiple cardiovascular risk factors including diabetes, hypertension, dyslipidemia. Few months back, she was complaining of some chest discomfort, radiating to the shoulders. That led to another catheterization but no significant findings. She states nitroglycerin still gives her some relief when she gets these symptoms. Hence not clear if it is still angina. Any case, seems stable and she has not had any major concerns. Seems to be getting along okay overall. [facility] Medical History (Updated 03/15/24 @ 19:13 by Genie Espinal NP) Asthma Shortness of breath MARY (obstructive sleep apnea) Type 2 diabetes mellitus with unspecified complications Essential hypertension Atherosclerotic cardiovascular disease Surgical History (Updated 01/02/24 @ 12:40 by Jessy Rico NP) S/P cardiac catheterization History of shoulder surgery History of section History of tonsillectomy and adenoidectomy History of lumpectomy of left breast History of cardiac catheterization (~05/10/21) History of four vessel coronary artery bypass graft (~05/17/21) Family History Father History of heart bypass surgery Mother History of heart bypass surgery Social History Patient Tobacco Use Status: Former Tobacco user Review of Systems Const Denies weakness ENT Denies dizziness Card Denies chest pain, Denies chest pain with activity, Denies syncope, Denies rapid heart rate, Denies pedal edema, Denies edema, Denies leg edema, Denies lightheadedness, Denies palpitations, Denies dyspnea, Denies dyspnea on exertion and Denies orthopnea Resp Denies cough, Denies dyspnea and Denies dyspnea on exertion GI Denies hematochezia and Denies change in stool character Musc Denies abnormal gait, Denies muscle cramps, Denies muscle weakness, Denies numbness, Denies radiating pain into limb and Denies tingling Neuro Denies abnormal gait, Denies dizziness, Denies syncope, Denies numbness, Denies tingling and Denies weakness Endo Denies palpitations Physical Exam Vital Signs: Last Vital Signs Pulse 68 04/29/24 13:47 BP 112/58 L 04/29/24 13:47 BMI result Body Mass Index 36.2 Const General: comfortable and no acute distress Orientation/consciousness: patient oriented x3 HEENT Other: Unremarkable Head: Yes normal to inspection Neck Neck: Yes normal visual inspection Chest Chest palpation & inspection: normal inspection of the chest Resp Auscultation: clear to auscultation bilaterally Cardio Palpation: normal PMI Heart sounds: S1 normal heart sound present, S2 normal heart sound present, no gallops, no murmurs and no rubs GI Palpation (GI): Soft to palpation Back/Spine/Pelvis Other: unremarkable Skin General skin exam: no rashes or lesions noted Neuro General: patient oriented x3 Extrem General: Yes normal to inspection Psych Mental Status: mental status grossly normal Assessment & Plan Assessment & Plan (1) Atherosclerotic cardiovascular disease: Code(s): I25.10 - Atherosclerotic heart disease of [place] coronary artery without angina pectoris Category: Medical Plan: Cardiac catheterization reviewed from 09/2023. Patent LANDERS to LAD, vein grafts to diagonal, PDA, PLV. No interventions performed. Doubt She remains on aspirin, beta-blockers and statins. May use sublingual nitroglycerin as necessary. Cholesterol is well controlled with LDL of 46 mg/dL. Triglycerides are on the higher side at 183 mg/dL. Could be related to diabetes. (2) Bilateral carotid artery stenosis: Code(s): I65.23 - Occlusion and stenosis of bilateral carotid arteries Category: Medical Plan: Her preoperative carotid US showed 50-69% stenosis in the right internal carotid artery and 1-49% stenosis in the left internal carotid artery. In the repeat study from 2022, no significant stenosis bilaterally. (3) Essential hypertension: Code(s): I10 - Essential (primary) hypertension Category: Medical Plan: Stable. No changes. (4) Type 2 diabetes mellitus with unspecified complications: Code(s): E11.8 - Type 2 diabetes mellitus with unspecified complications Category: Medical Plan: She is on insulin, Trulicity, metformin. Blood sugar in the most recent labs from [facility] 124 mg/dL. (5) MARY (obstructive sleep apnea): Code(s): G47.33 - Obstructive sleep apnea (adult) (pediatric) Category: Medical Plan: CPAP. Coding Level of Care Code Est Pt Level 4 (98659) Diagnoses Atherosclerotic cardiovascular disease I25.10 Bilateral carotid artery stenosis I65.23 Essential hypertension I10 Type 2 diabetes mellitus with unspecified complications E11.8 MARY (obstructive sleep apnea) G47.33
[2024-04-29 13:47] VITALS: BP 112/58; PULSE 68; BMI 36.2
--- OUTSIDE RECORDS SUMMARY | 2024-05-05 02:38 | XMS_ITS | Data Portability ---
Author Organization [employer] [employer] [employer] Address [address] [place] [id number] Care Team Providers Care Staffing Executive Name Role Phone [facility] Referring Provider Assessment No assessment recorded. Plan of Treatment Reminders Order Date Submit Date Provider Last Modified By Organization Details Last Modified Time Details Appointments None recorde d. Lab culture , urine 022 04/24/20 SYMSONIA [facility], [address], [id number], 10:19:58 Referral None recorde d. Procedures None recorde d. Surgeries None recorde d. Imaging None recorde d. Medication Orders None recorde d. Patient TargetsNo targets recorded. Patient InstructionsNo instructions recorded. Reason for Referral None Reported. Results Created Date Observation Date Name Description Value Unit Range Abnormal Flag Note LastModifiedBy Organization Detail LastModifiedTime 04/24/20 22 04/25/2022 UA W/REF JOLEEN CULTU RE appear/color YELLO W CLEAR Not Available [facility] [address] [place], [id number], 04/25/2022 03:12:04 04/24/20 22 04/25/2022 UA W/REF JOLEEN CULTU RE sp. gravity 1.013 (1.002 -1.030 ) Not Available [facility] [address] [place], [id number], 04/25/2022 03:12:04 04/24/20 22 04/25/2022 UA W/REF JOLEEN CULTU RE urine pH 5.5 (5.0-8 .0) Not Available [facility] [address] [place], [id number], 04/25/2022 03:12:04 04/24/20 22 04/25/2022 UA W/REF JOLEEN CULTU RE urine albumin NEGATI VE (neg) Not Available [facility] [address] [place], [id number], 04/25/2022 03:12:04 04/24/20 22 04/25/2022 UA W/REF JOLEEN CULTU RE urine glucose NEGATI VE (neg) Not Available [facility] [address] [place], [id number], 04/25/2022 03:12:04 04/24/20 22 04/25/2022 UA W/REF JOLEEN CULTU RE urine ketones NEGATI VE (neg) Not Available [facility] [address] [place], [id number], 04/25/2022 03:12:04 04/24/20 22 04/25/2022 UA W/REF JOLEEN CULTU RE urine bilirubin NEGATI VE (neg) Not Available [facility] [address] [place], [id number], 04/25/2022 03:12:04 04/24/20 22 04/25/2022 UA W/REF JOLEEN CULTU RE urine hemoglobin NEGATI VE (neg) Not Available [facility] [address] [place], [address], 04/25/2022 03:12:04 04/24/20 22 04/25/2022 UA W/REF JOLEEN CULTU RE urine nitrite NEGATI VE (neg) Not Available [facility] [address] [place], [id number], 04/25/2022 03:12:04 04/24/20 22 04/25/2022 UA W/REF JOLEEN CULTU RE urine leukocyte NEGATI VE (neg) Not Available [facility] [address] [place], [id number], 04/25/2022 03:12:04 04/24/20 22 04/25/2022 UA W/REF JOLEEN CULTU RE urobilinogen NORMAL mg/dL (norm) Not Available [facility] [address] [place], [id number], 04/25/2022 03:12:04 04/24/20 22 04/25/2022 UA W/REF JOLEEN CULTU RE urine WBCs <1 /hpf (0-5) Not Available [facility] [address] [place], [address], 04/25/2022 03:12:04 04/24/20 22 04/25/2022 UA W/REF JOLEEN CULTU RE urine RBCs NONE SEEN /hpf (0-3) Not Available [facility] [address] [place], [address], 04/25/2022 03:12:04 04/24/20 22 04/25/2022 UA W/REF JOLEEN CULTU RE bacteria SLIGHT hpf (neg) abnormal Not Available [facility] [address] [place], [address], 04/25/2022 03:12:04 04/24/20 22 04/25/2022 UA W/REF JOLEEN CULTU RE mucus SLIGHT /lpf Not Available [facility] [address] [place], [id number], 04/25/2022 03:12:04 04/24/20 22 04/25/2022 UA W/REF JOLEEN CULTU RE squamous epith 1 /hpf (0-8) Not Available [facility] [address] [place], [id number], 04/25/2022 03:12:04 04/24/20 22 04/25/2022 UA W/REF JOLEEN CULTU RE hyaline cast 3 lpf (0-2) high Not Available [facility] [address] [place], [address], 04/25/2022 03:12:04 04/24/20 22 04/25/2022 UA W/REF JOLEEN CULTU RE clarity CLEAR (clear ) Not Available [facility] [address] [place], [address], 04/25/2022 03:12:04 04/24/20 22 04/25/2022 UA W/REF JOLEEN CULTU RE culture indication CULTUR E NOT INDICA SIMONE Not Available [facility] [address], [place], [id number], 04/25/2022 03:12:04 Result Notes None recorded. Medical Equipment None Reported. Medications Name Sig Start Date Stop Date Status Note LastModified by Organization Details LastModified Time torsemide 20 mg tablet active Not Available Not Available No t Available amiodarone 200 mg tablet TAKE 1 TABLET BY MOUTH TWO TIMES A DAY active Not Available Not Available Not Available meloxicam 15 mg tablet active Not Available Not Available No t Available FreeStyle Lancets 28 gauge active Not Available Not Available Not Available clopidogrel 75 mg tablet TAKE 1 TABLET BY MOUTH EVERY DAY active Not Available Not Available No t Available amlodipine 5 mg tablet TAKE 1 TABLET BY MOUTH EVERY DAY active Not Available Not Available No t Available aspirin 81 mg tablet,delay ed release active Not Available Not Available N ot Available meloxicam 7.5 mg tablet active Not Available Not Available Not Available calcium 600 mg (as calcium carbonate 1,500 mg) tablet active Not Available Not Available Not Available Vitamin D3 10 mcg (400 unit) tablet active Not Available Not Available Not Available famotidine 20 mg tablet active Not Available Not Available Not Available lorazepam 0.5 mg tablet active Not Available Not Available Not Available metformin 1,000 mg tablet active Not Available Not Available Not Available lisinopril 10 mg tablet active Not Available Not Available Not Available nitroglyceri n 0.[address] 1 TABLET UNDER TONGUE EVERY 5 MIN NEEDED FOR CHEST PAIN, MAX OF 3 DOSES/15 MIN CALL 911/SEEK MEDICAL ATTENTION IF PAIN PERSISTS active Not Available Not Available N ot Available docusate sodium 100 mg capsule active Not Available Not Available N ot Available gabapentin 300 mg capsule active Not Available Not Available Not Available metoprolol succinate ER 25 mg tablet,exten ded release 24 hr active Not Available Not Available Not Available lorazepam 1 mg tablet active Not Available Not Available No t Available Ventolin HFA 90 mcg/actuatio n aerosol inhaler active Not Available Not Available Not Available escitalopram 10 mg tablet active Not Available Not Available Not Available Premarin 0.625 mg/gram vaginal cream active Not Available Not Available Not Available rosuvastatin 10 mg tablet TAKE 1 TABLET BY MOUTH EVERY DAY active Not Available Not Available No t Available Alcohol Prep Pads active Not Available Not Available Not Available metoprolol tartrate 25 mg tablet TAKE 1 TABLET BY MOUTH TWO TIMES A DAY active Not Available Not Available Not Available budesonide-f ormoterol HFA 80 mcg-4.5 mcg/actuatio n aerosol inhaler active Not Available Not Available Not Available diclofenac 1 % topical gel APPLY 2 GRAMS TOPICALLY TO AFFECTED AREA THREE TIMES A DAY NEEDED FOR MILD JOINT PAIN active Not Available Not Available N ot Available Gamunex-C 10 gram/100 mL (10 %) injection solution active Not Available Not Available Not Available Rectiv 0.4 % (w/w) ointment active Not Available Not Available Not Available Levemir FlexTouch U-100 Insulin 100 unit/mL (3 mL) subcutaneous pen INJECT 26 UNITS SUBCUTANEOU SLY EVERY DAY active Not Available Not Available No t Available Arnuity Ellipta 100 mcg/actuatio n powder for inhalation active Not Available Not Available N ot Available FreeStyle Precision Mina Strips active Not Available Not Available N ot Available BD Kathi 2nd Gen Pen Needle 32 gauge x 5/32 active Not Available Not Available Not Available FreeStyle Marguerite 2 Sensor kit active Not Available Not Available N ot Available FreeStyle Marguerite 2 [place] active Not Available Not Available Not Available Vitals Date Recorded Heart rate Respiratory rate Body temperature Systolic blood pressure Diastolic blood pressure Provider Name and Address Organization Details Last Updated DateTime 2 80 /min 18 /min 98.6 [degF] 138 mm[Hg] 90 mm[Hg] Not Available [facility] - production 2 13:50:36 Social History None recorded. Functional Status None recorded. Mental Status None recorded. Family History Nothing Reported. Medical History No medical history recorded. Gynecological HistoryNo gynecological history recorded. Obstetrics History GPAL:G 0 P 0 0 0 0 Past Encounters Encounter ID Performer Location Encounter Start Date Encounter Closed Date Diagnosis/Indication Diagnosis SNOMED-CT Code Diagnosis ICD10 Code [id number] Kapil Garcia MD [facility] [address] [place] [phone] 04/24/2022 13:50:34 04/29/2022 15:28:00 Dysuria [id number] R30.0 Health Concerns Section Related Observation LastModified by Organization Detai ls LastModified Time None Recorded Concern Status LastModified by Organization Details LastModified Time None Recorded Advance Directives Directive None Recorded Payers Encounter Date Sequence Insurance Name Policy Number Policy Bowser Covered Member ID Bowser Member ID Guarantor Name 04/24/2022 1 [facility] - DOS PRIOR TO 2022 - DUAL ELIGIBLE (MEDICARE REPLACEMENT/ADV ANTAGE - HMO) Sally Rodriguez [id number] Sally Rodriguez Notes Date Note Type Note Provider Name and Address Organization Details Recorded Time 04/24/2022 text/html [facility] Nursing Assessment: Reason For Request: UTI. Going on 2 weeks of symptoms on and off. Member states over that weekend she was the most uncomfortable. Hemerobiids have flared up on top of it. Patient Reports: Painful urination; Frequent and increased urination with flank pain; Painful urination with or without fever; Inability to fully empty bladder Chief Complaints: UTI/Pyelonephritis PMH: Diabetes, COPD/Asthma, Heart Disease, Hypertension Allergies: Anything in the condine family. Tylox. Percadan Comments: Member c/o painful urination with back pain for 2 weeks. Member c/o increased frequency . Member denies fever/ chills . 97.8 temp . Member does take tylenol with regular meds. Member denies V/D but has nausea due to medication > 300 Mg 3times a day of gabapentin .................. .................. .................. .................. .................. .................. .................. ............... 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 Pt caox3 standing. Pt complains of pain, lower back bilateral near kidney area x2 weeks, complains of full bladder. Had labs done Friday, states they told her she was dehydrated so she has been drinking more water since then. Denies difficult or painful urination. Denies nausea vomiting diarrhea, abdominal pain, dizziness weakness or other. Urine dipstick negative, urine light yellow clear. Advised to continue to hydrate. .................. .................. .................. .................. .................. .................. .................. ............... Disposition: Fulfilled Kapil Garcia MD [address] [place] [address],[address] [facility], [place], [phone], [facility] 04/24/2022 20:37:39 OBGyn Episode No OBEpisode recorded.
== END 2024-04-29 14:08 | disposition home or self-care (01) ==
PROVIDERS: PCP Internal Medicine; Visit Provider Internal Medicine
DX: I25.10 Atherosclerotic heart disease of native coronary artery without angina pectoris (principal); I65.23 Occlusion and stenosis of bilateral carotid arteries; I10 Essential (primary) hypertension; E11.8 Type 2 diabetes mellitus with unspecified complications; G47.33 Obstructive sleep apnea (adult) (pediatric)
CPT/HCPCS: 99214

== ENCOUNTER → 2024-04-29 13:38 | Outpatient (BNVA) | payer OTHER, SELFPAY | PROVIDERS: PCP Internal Medicine; Visit Provider Internal Medicine | DX: I10 Essential (primary) hypertension (principal); I25.10 Atherosclerotic heart disease of native coronary artery without angina pectoris; I65.23 Occlusion and stenosis of bilateral carotid arteries; E78.5 Hyperlipidemia, unspecified; E11.8 Type 2 diabetes mellitus with unspecified complications; G47.33 Obstructive sleep apnea (adult) (pediatric) | CPT/HCPCS: 99212 ==

== ENCOUNTER 2024-05-03 15:42 | Outpatient (AMB) | payer OTHER, SELFPAY ==
[2024-05-03 15:51] VITALS: BP 130/64; PULSE 67; O2SAT 96; BMI 37.3
--- NOTE | 2024-05-03 15:51 | MHC.OFFVIS ---
Vital Signs 05/03/24 15:51 Height 5 ft 1 in Weight 197 lb 5.019 oz BMI 37.3 BP 130/64 Blood Pressure Location Lt brachial Position Sitting Pulse 67 Pulse Source Pulse Oximeter Pulse Oximetry (%) 96 Oxygen Delivery Method Room Air Intake Visit Reasons: Asthma Allergies oxycodone [From Percodan] Allergy (Intermediate, Verified 05/03/24 15:54) HIVES erythromycin base Adverse Reaction (Intermediate, Verified 05/03/24 15:54) GI UPSET levofloxacin [From Levaquin] Adverse Reaction (Intermediate, Verified 05/03/24 15:54) GI UPSET Sulfa (Sulfonamide Antibiotics) Adverse Reaction (Intermediate, Verified 05/03/24 15:54) HIVES HPI HPI Asthma: Details: Sally is a pleasant 68 year old female, less than 10 pack year history, with underlying asthma, severe MARY on CPAP, DMII, CAD s/p CABG 2021, and hypogammaglobulinemia SC weekly Dr Beck. She has been prescribed diuretics after IVIG infusion, as she develops intermittent BLE edema and orthopnea. Echo 2021 revealed LVEF 58%. At the last visit she was started on Alvesco with improvement in chest tightness and cough however continues with dyspnea on exertion. PFT order was also placed and awaiting this to be scheduled. She also notes since starting she has had increased hoarseness and notes significant difficulties controlling GERD, requesting referral to GI. She is requesting CPAP therapy to be managed by this office. [employer] is her [employer]. Request to transfer care to this office was placed however not yet able to access account. [facility] Medical History (Updated 05/04/24 @ 20:29 by Genie Espinal NP) Asthma Shortness of breath MARY (obstructive sleep apnea) Type 2 diabetes mellitus with unspecified complications Essential hypertension Atherosclerotic cardiovascular disease Surgical History (Updated 01/02/24 @ 12:40 by Jessy Rico NP) S/P cardiac catheterization History of shoulder surgery History of section History of tonsillectomy and adenoidectomy History of lumpectomy of left breast History of cardiac catheterization (~05/10/21) History of four vessel coronary artery bypass graft (~05/17/21) Family History Father History of heart bypass surgery Mother History of heart bypass surgery Social History Patient Tobacco Use Status: Former Tobacco user Review of Systems Const Denies chills, Denies excessive sweating, Denies fever(s), Denies headache(s) and Denies night sweats Eyes Denies dry eyes, Denies irritation and Denies itchy eyes ENT Reports Normal hearing present, Denies headache(s), Denies nasal congestion, Denies nasal discharge and Denies sore throat Card Denies chest pain, Denies chest pain at rest, Denies chest pain with activity, Denies claudication and Denies paroxysmal nocturnal dyspnea Resp Denies chest congestion, Denies excessive phlegm production, Denies pain on inspiration, Denies pain with cough and Denies stridor Musc Denies myalgias Neuro Reports Normal hearing present and Denies headache(s) Endo Denies excessive sweating Antelmo/Lymph Denies lymphadenopathy Aller/Immun Denies itchy eyes and Denies seasonal rhinorrhea Physical Exam Vital Signs: Last Vital Signs Pulse 67 05/03/24 15:51 BP 130/64 05/03/24 15:51 Pulse Ox 96 05/03/24 15:51 Oxygen Delivery Method Room Air 05/03/24 15:51 BMI result Body Mass Index 37.3 Const General: cooperative, healthy appearing, comfortable, no acute distress, well developed and alert Orientation/consciousness: patient oriented x3 Limitations: no limitations HEENT Head: Yes normal to inspection, Yes normocephalic and Yes atraumatic Ears: hearing grossly normal bilaterally and external ears normal Eyes General: appearance normal, both eyes and all related structures Eyelids: Yes eyelids normal Sclerae: sclerae normal EOM: EOMs intact bilaterally Neck Neck: Yes normal visual inspection and Yes no lymphadenopathy Lymphatic: no lymphadenopathy noted Chest Chest palpation & inspection: normal inspection of the chest Resp Effort & Inspection: normal respiratory effort, able to speak in complete sentences, no audible wheezes, no cough, no stridor, not tachypneic, no tripod positioning and no use of accessory muscles Auscultation: clear to auscultation bilaterally Cardio Jugular venous distension: no JVD Rate: regular rate Rhythm: regular rhythm Skin Other: warm, dry General skin exam: no rashes or lesions noted Neuro General: patient oriented x3 Cranial nerves: Yes Normal hearing present Cognition (Neuro): normal cognition Gait exam (Neuro): Normal gait present Extrem General: Yes normal to inspection, Yes capillary refill normal, Yes no clubbing, cyanosis or edema and Yes no pedal edema Psych Appearance: grossly normal and well kempt Speech and movement: Normal speech and movement present and Clear speech present Affect: normal affect Attitude: cooperative Thought process: Normal thought process present Thought content: Normal thought content present Insight: Good insight present (Psych) Judgement: Good judgement present (Psych) Assessment & Plan Assessment & Plan (1) Asthma: Code(s): J45.909 - Unspecified asthma, uncomplicated Category: Medical (2) MARY (obstructive sleep apnea): Code(s): G47.33 - Obstructive sleep apnea (adult) (pediatric) Category: Medical (3) Pleuritic pain: Code(s): R07.81 - Pleurodynia Category: Medical (4) GERD (gastroesophageal reflux disease): Code(s): K21.9 - Gastro-esophageal reflux disease without esophagitis Category: Medical Plan Will increase Alvesco as she reports suboptimal effect. At this time would like to avoid LABA component as patient reports significant tremors and tachycardia with albuterol use. She reports increased hoarseness over the last few weeks which could be attributed to the ICS however because patient with persistent hoarseness prior to starting the ICS. She notes significant reflux not controlled with OTC PPI. Will enter a referral to GI. She previously reported pleuritic pain which has significantly improved awaiting final read on chest x-ray. She is requesting CPAP therapy be managed by this office, prescription was sent for supply order to obtain compliance report and pressure settings, however not able to access. Will reach out to [facility] again. Will reenter order for PFT as this has yet to be scheduled. All questions were answered and patient is in agreement of plan. Will follow-up in 6-8 weeks or sooner if needed. Orders: Orders PFT pulmonary function test Today J45.909 - Unspecified asthma, uncomplicated Referrals Gastroenterology Referral K21.9 - Gastro-esophageal reflux disease without esophagitis Medications: New ciclesonide 160 mcg/actuation (Alvesco) 2 puffs inhalation DAILY 6.1 grams 3RF Discontinued ciclesonide 80 mcg/actuation (Alvesco) Discontinued Reason: More recent result 2 puffs inhalation BID 6.1 grams 3RF Coding Level of Care Code Est Pt Level 4 (91789) Diagnoses Asthma J45.909 MARY (obstructive sleep apnea) G47.33 Pleuritic pain R07.81 GERD (gastroesophageal reflux disease) K21.9
== END 2024-05-03 16:40 | disposition home or self-care (01) ==
PROVIDERS: PCP Internal Medicine; Visit Provider Nurse Practitioner Family
DX: J45.909 Unspecified asthma, uncomplicated (principal); G47.33 Obstructive sleep apnea (adult) (pediatric); R07.81 Pleurodynia; K21.9 Gastro-esophageal reflux disease without esophagitis
CPT/HCPCS: 99214

== ENCOUNTER → 2024-05-03 15:42 | Outpatient (BNVA) | payer OTHER, SELFPAY | PROVIDERS: PCP Internal Medicine; Visit Provider Nurse Practitioner Family | DX: J45.909 Unspecified asthma, uncomplicated (principal); R07.81 Pleurodynia; G47.33 Obstructive sleep apnea (adult) (pediatric); K21.9 Gastro-esophageal reflux disease without esophagitis | CPT/HCPCS: 99212 ==

== ENCOUNTER 2024-05-08 09:49 | Outpatient (REF) | payer OTHER, SELFPAY ==
--- OUTSIDE RECORDS SUMMARY | 2024-05-08 09:52 | XMS_ITS | Data Portability ---
Author Organization [facility] [place] [facility] [employer] Address [address] [place] [phone] Care Team Providers Care Supervisor Blasting Name Role Phone [facility] Referring Provider [phone] Assessment No assessment recorded. Plan of Treatment Reminders Order Date Submit Date Provider Last Modified By Organization Details Last Modified Time Details Appointments None recorde d. Lab culture , urine 022 04/24/20 [place] [facility], [address], [address], 10:19:58 Referral None recorde d. Procedures None [...] [facility] [address] [place], [address], 04/25/2022 03:12:04 04/24/20 22 04/25/2022 UA W/REF JOLEEN CULTU RE sp. gravity 1.013 (1.002 -1.030 ) Not Available [facility] [address] [place] [place], [address], 04/25/2022 03:12:04 04/24/20 22 04/25/2022 UA W/REF JOLEEN CULTU RE urine pH 5.5 (5.0-8 .0) Not Available [facility] [address] [place], [address], 04/25/2022 03:12:04 04/24/20 22 04/25/2022 UA W/REF JOLEEN CULTU RE urine albumin NEGATI VE (neg) Not Available [facility] [address] [place], [address], 04/25/2022 03:12:04 04/24/20 22 04/25/2022 UA W/REF JOLEEN CULTU RE urine glucose NEGATI VE (neg) Not Available [facility] [address] [place], [address], 04/25/2022 03:12:04 04/24/20 22 04/25/2022 UA W/REF JOLEEN CULTU RE urine ketones NEGATI VE (neg) Not Available [facility] [address] [place], [address], 04/25/2022 03:12:04 04/24/20 22 04/25/2022 UA W/REF JOLEEN CULTU RE urine bilirubin NEGATI VE (neg) Not Available [facility] [address] [place], [address], 04/25/2022 03:12:04 04/24/20 22 04/25/2022 UA W/REF JOLEEN CULTU RE urine hemoglobin NEGATI VE (neg) Not Available [facility] [address] [place], [address], 04/25/2022 03:12:04 04/24/20 22 04/25/2022 UA W/REF JOLEEN CULTU RE urine nitrite NEGATI VE (neg) Not Available [facility] [address] [place], [address], 04/25/2022 03:12:04 04/24/20 22 04/25/2022 UA W/REF JOLEEN CULTU RE urine leukocyte NEGATI VE (neg) Not Available [facility] [address] [place], [address], 04/25/2022 03:12:04 04/24/20 22 04/25/2022 UA W/REF JOLEEN CULTU RE urobilinogen NORMAL mg/dL (norm) Not Available [facility] [address] [place], [address], 04/25/2022 03:12:04 04/24/20 22 04/25/2022 UA W/REF JOLEEN CULTU RE urine WBCs <1 /hpf (0-5) Not Available [facility] [address] [place], [address], 04/25/2022 03:12:04 04/24/20 22 04/25/2022 UA W/REF JOLEEN CULTU RE urine RBCs NONE SEEN /hpf (0-3) Not Available [facility] [address] [place], [address], 04/25/2022 03:12:04 04/24/20 22 04/25/2022 UA W/REF JOLEEN CULTU RE bacteria SLIGHT hpf (neg) abnormal Not Available [facility] [address] [place], [address], 04/25/2022 03:12:04 04/24/20 22 04/25/2022 UA W/REF JOLEEN CULTU RE mucus SLIGHT /lpf Not Available [facility] [address] [place], [address], 04/25/2022 03:12:04 04/24/20 22 04/25/2022 UA W/REF JOLEEN CULTU RE squamous epith 1 /hpf (0-8) Not Available [facility] [address] [place], [address], 04/25/2022 03:12:04 04/24/20 22 04/25/2022 UA W/REF JOLEEN CULTU RE hyaline cast 3 lpf (0-2) high Not Available [facility] [address] [place], [address], 04/25/2022 03:12:04 04/24/20 22 04/25/2022 UA W/REF JOLEEN CULTU RE clarity CLEAR (clear ) Not Available [facility] [address] [place], [address], 04/25/2022 03:12:04 04/24/20 22 04/25/2022 UA W/REF JOLEEN CULTU RE culture indication CULTUR E NOT INDICA SIMONE Not Available [facility] [address], [place], [address], 04/25/2022 03:12:04 Result Notes None recorded. Medical [...] Available N ot Available [employer] Marguerite [address] [place] active Not Available Not Available Not Available [...] 5724 Kapil Garcia MD Main - [facility] [address] [place] [phone] 04/24/2022 13:50:34 04/29/2022 15:28:00 Dysuria [id number] R30.0 Health Concerns Section Related Observation LastModified by Organization Detai ls LastModified Time None Recorded Concern Status LastModified by Organization Details LastModified Time None Recorded Advance Directives Directive None Recorded Payers Encounter Date Sequence Insurance Name Policy Number Policy Bowser Covered Member ID Bowser Member ID Guarantor Name 04/24/2022 1 [facility] - DOS PRIOR TO 2022 - DUAL ELIGIBLE (MEDICARE REPLACEMENT/ADV ANTAGE - HMO) Sally Rodriguez [id number] Sally Rodriguez Notes Date Note Type Note [...] .................. .................. .................. .................. .................. .................. ............... Ramp Agent Note: Sc12 to address for uti symptoms. [...] .................. ............... Disposition: Fulfilled Kapil Garcia MD [address] [place] [address],[address] [facility], [place], [address], [facility] 04/24/2022 20:37:39 OBGyn Episode No OBEpisode recorded.
[2024-05-08 09:59] VITALS: PULSE 61; O2SAT 97
--- NOTE | 2024-05-08 10:00 | PFT_ITS ---
Indication: dyspnea Spirometry [FEV1 to FVC 84% 1 2.02 L; FVC 2.41 L. no significant response to bronchodilators noted maximum voluntary ventilation 90% predicted] Lung Volumes [Total lung capacity 78% predicted; residual volume 66% predicted] Diffusion Capacity [DLCO 69% predicted] Comparisons [None] Interpretation [No obstructive ventilatory defects. No significant response to bronchodilators noted. There is a restrictive ventilatory defect consistent with mild restrictive lung disease. In addition to that there is a mild diffusion impairment. Clinical correlation warranted.] MTDD
== END 2024-05-08 09:50 | disposition home or self-care (01) ==
LOC: HO.RESP 09:49
PROVIDERS: PCP Internal Medicine; Visit Provider Nurse Practitioner Family
DX: J45.909 Unspecified asthma, uncomplicated (principal)
CPT/HCPCS: 94010; 94640; 94727; 94729

== ENCOUNTER 2024-07-02 16:42 | Outpatient (REF) | payer OTHER, SELFPAY | END 2024-07-02 16:43 | disposition home or self-care (01) | LOC: HO.CT 16:42 | PROVIDERS: PCP Internal Medicine; Visit Provider Nurse Practitioner Family | DX: R93.89 Abnormal findings on diagnostic imaging of other specified body structures (principal) | CPT/HCPCS: 71250 ==

== ENCOUNTER → 2024-07-02 16:44 | Outpatient (BNV) | payer OTHER, SELFPAY | PROVIDERS: PCP Internal Medicine; Visit Provider Specialist | DX: R93.89 Abnormal findings on diagnostic imaging of other specified body structures (principal) | CPT/HCPCS: 71250 ==

== ENCOUNTER 2024-07-16 14:07 | Outpatient (AMB) | payer OTHER, SELFPAY ==
[2024-07-16 14:26] VITALS: BP 130/64; PULSE 72; O2SAT 96; BMI 37.6
--- NOTE | 2024-07-16 14:26 | MHC.OFFVIS ---
Vital Signs 07/16/24 14:26 Height 5 ft 1 in Weight 199 lb BMI 37.6 BP 130/64 Blood Pressure Location Rt brachial Position Sitting Pulse 72 Pulse Source Pulse Oximeter Pulse Oximetry (%) 96 Oxygen Delivery Method Room Air Intake Visit Reasons: Asthma Lead Housekeeper Required: No Career Guidance Counselor: Career Guidance Counselor offered & declined Accompanied by: Self / Same As Patient Allergies oxycodone [From Percodan] Allergy (Intermediate, Verified 07/16/24 14:30) HIVES erythromycin base Adverse Reaction (Intermediate, Verified 07/16/24 14:30) GI UPSET levofloxacin [From Levaquin] Adverse Reaction (Intermediate, Verified 07/16/24 14:30) GI UPSET Sulfa (Sulfonamide Antibiotics) Adverse Reaction (Intermediate, Verified 07/16/24 14:30) HIVES Medication List - Last Reconciled 07/16/24 by Jeane Orourke LPN aspirin 81 mg PO DAILY calcium carbonate 600 mg PO BEDTIME ciclesonide 160 mcg/actuation (Alvesco) 2 puffs inhalation DAILY dapagliflozin propanediol (Farxiga) 5 mg PO DAILY dulaglutide (Trulicity) 0.75 mg subcut QWEEK escitalopram oxalate 20 mg PO DAILY famotidine 20 mg PO BID gabapentin 300 mg PO DAILY ipratropium bromide 2 sprays intranasal BID lorazepam 0.5 mg PO BID PRN meloxicam 15 mg PO DAILY metformin 1,000 mg PO BID metoprolol tartrate 25 mg PO BID nitroglycerin 0.4 mg sublingual PRN nystatin 400,000 units (4 mL) buccal QID rosuvastatin 10 mg PO BEDTIME torsemide 20 mg PO DAILY PRN HPI HPI Asthma: Details: Sally is a pleasant 68 year old female, less than 10 pack year history, with underlying asthma, severe MARY on CPAP, DMII, CAD s/p CABG 2021, and hypogammaglobulinemia SC weekly Dr Beck. She has been prescribed diuretics after IVIG infusion, as she develops intermittent BLE edema and orthopnea. Echo 2021 revealed LVEF 58%. At the last visit she was started on Alvesco with improvement in chest tightness and cough however developed hoarseness so discontinued. Once d/c hoarseness improved. Previous ENT workup for hoarseness reportedly unremarkable. Of note, she does have an upcoming appt with GI for persistent reflux symptoms. She continues to report overall fatigue and chest congestion with associated dyspnea. Today she presents to review chest CT and PFT results. [facility] Medical History (Updated 07/19/24 @ 16:35 by Genie Espinal NP) Asthma Shortness of breath MARY (obstructive sleep apnea) Type 2 diabetes mellitus with unspecified complications Essential hypertension Atherosclerotic cardiovascular disease Surgical History (Updated 01/02/24 @ 12:40 by Jessy Rico NP) S/P cardiac catheterization History of shoulder surgery History of section History of tonsillectomy and adenoidectomy History of lumpectomy of left breast History of cardiac catheterization (~05/10/21) History of four vessel coronary artery bypass graft (~05/17/21) Family History Father History of heart bypass surgery Mother History of heart bypass surgery Social History Patient Tobacco Use Status: Former Tobacco user Review of Systems Const Denies chills, Denies excessive sweating, Denies fever(s), Denies headache(s) and Denies night sweats Eyes Denies dry eyes, Denies irritation and Denies itchy eyes ENT Reports Normal hearing present, Denies headache(s), Denies nasal congestion, Denies nasal discharge and Denies sore throat Card Denies chest pain, Denies chest pain at rest, Denies chest pain with activity, Denies claudication and Denies paroxysmal nocturnal dyspnea Resp Denies chest congestion, Denies excessive phlegm production, Denies pain on inspiration, Denies pain with cough and Denies stridor Musc Denies myalgias Neuro Reports Normal hearing present and Denies headache(s) Endo Denies excessive sweating Antelmo/Lymph Denies lymphadenopathy Aller/Immun Denies itchy eyes and Denies seasonal rhinorrhea Physical Exam Vital Signs: Last Vital Signs Pulse 72 07/16/24 14:26 BP 130/64 07/16/24 14:26 Pulse Ox 96 07/16/24 14:26 Oxygen Delivery Method Room Air 07/16/24 14:26 BMI result Body Mass Index 37.6 Const General: cooperative, healthy appearing, comfortable, no acute distress, well developed and alert Orientation/consciousness: patient oriented x3 Limitations: no limitations HEENT Head: Yes normal to inspection, Yes normocephalic and Yes atraumatic Ears: hearing grossly normal bilaterally and external ears normal Eyes General: appearance normal, both eyes and all related structures Eyelids: Yes eyelids normal Sclerae: sclerae normal EOM: EOMs intact bilaterally Neck Neck: Yes normal visual inspection and Yes no lymphadenopathy Lymphatic: no lymphadenopathy noted Chest Chest palpation & inspection: normal inspection of the chest Resp Effort & Inspection: normal respiratory effort, able to speak in complete sentences, no audible wheezes, no cough, no stridor, not tachypneic, no tripod positioning and no use of accessory muscles Auscultation: diminished lung sounds Cardio Jugular venous distension: no JVD Rate: regular rate Rhythm: regular rhythm Skin Other: warm, dry General skin exam: no rashes or lesions noted Neuro General: patient oriented x3 Cranial nerves: Yes Normal hearing present Cognition (Neuro): normal cognition Gait exam (Neuro): Normal gait present Extrem General: Yes normal to inspection, Yes capillary refill normal, Yes no clubbing, cyanosis or edema and Yes no pedal edema Psych Appearance: grossly normal and well kempt Speech and movement: Normal speech and movement present and Clear speech present Affect: normal affect Attitude: cooperative Thought process: Normal thought process present Thought content: Normal thought content present Insight: Good insight present (Psych) Judgement: Good judgement present (Psych) Results Reviewed Results Reviewed: [place] [address] CT Scan Report Signed Patient: Sally Rodriguez MR#: [id number] : 1955 Acct:[id number] Age/Sex: 68 / F ADM Date: 07/02/24 Loc: HO.CT Attending Dr: Genie Espinal NP Ordering Physician: Genie Espinal NP Date of Service: 07/02/24 Procedure(s): CT chest wo IV con Accession Number(s): [id number] cc: ROBERT AHN MD; Genie Espinal NP~ Report Number: [id number]: Total DLP = 187.00 mGy-cm CLINICAL HISTORY: R93.89 - Abnormal findings on diagnostic imaging of other specified body... CT chest without contrast Comparison: None Findings: The heart size is normal. There is aortic and coronary arterial calcification. The visualized thyroid and mediastinum are otherwise unremarkable. There is minimal right middle and bilateral lower lobe bronchiectasis with associated consolidation, possible scarring, subsegmental atelectasis, or pneumonia. The upper abdomen is unremarkable. No acute fractures. IMPRESSION: 1. Right middle and bilateral lower lobe bronchiectasis with consolidation, differential considerations noted. This document has been electronically signed by: Parvez Arango MD on 07/05/2024 09:12:57 Dictated By: Parvez Arango MD Signed By: <Electronically signed by Parvez Arango MD in OV> 07/05/24913 DD/ 1 TD/TT: 07/05/24911 Cash Surrender Calculator: Assessment & Plan Assessment & Plan (1) Asthma: Code(s): J45.909 - Unspecified asthma, uncomplicated Category: Medical (2) MARY (obstructive sleep apnea): Code(s): G47.33 - Obstructive sleep apnea (adult) (pediatric) Category: Medical (3) Pleuritic pain: Code(s): R07.81 - Pleurodynia Category: Medical (4) GERD (gastroesophageal reflux disease): Code(s): K21.9 - Gastro-esophageal reflux disease without esophagitis Category: Medical (5) Pneumonia: Code(s): J18.9 - Pneumonia, unspecified organism Category: Medical Plan Reviewed PFT which revealed no obstructive ventilatory defects. No significant response to bronchodilators noted, mild improvement in small to medium airways. There is a restrictive ventilatory defect consistent with mild restrictive lung disease. Reviewed chest CT which revealed might middle and bilateral lower lobe bronchiectasis with consolidation, suggestive of pneumonia. Will treat with Vantin. Will repeat chest CT in 8-10 weeks to assess for resolution. Will also send nebulizer with albuterol as well as flutter valve to improve airway clearance. All questions were answered and patient is in agreement of plan. Will follow-up in 6-8 weeks or sooner if needed. Orders: Orders CT chest wo IV con 8 Weeks J18.9 - Pneumonia, unspecified organism Medications: New cefpodoxime must administer with a meal/food 200 mg PO BID 14 tabs 0RF albuterol sulfate 2.5 mg (3 mL) inhalation Q4-6H PRN 180 mL 3RF shortness of breath or wheezing Coding Level of Care Code Est Pt Level 4 (66336) Diagnoses Asthma J45.909 MARY (obstructive sleep apnea) G47.33 Pleuritic pain R07.81 GERD (gastroesophageal reflux disease) K21.9 Pneumonia J18.9
--- OUTSIDE RECORDS SUMMARY | 2024-07-16 14:34 | XMS_ITS | Data Portability ---
Author Organization [employer] [place] [facility] [employer] Address [address] [place] [phone] Care Team Providers Care Clothes Separator Name Role Phone [facility] Referring Provider Assessment No assessment recorded. Plan of Treatment Reminders Order Date Submit Date Provider Last Modified By Organization Details Last Modified Time Details Appointments None recorde d. Lab culture , urine 022 04/24/20 [place] [facility], [address], [address], 10:19:58 Referral None recorde d. Procedures None [...] [facility] [address] [place], [address], 04/25/2022 03:12:04 04/24/20 22 04/25/2022 UA W/REF JOLEEN CULTU RE sp. gravity 1.013 (1.002 -1.030 ) Not Available [facility] [address] [place], [address], 04/25/2022 03:12:04 04/24/20 22 04/25/2022 UA W/REF JOLEEN CULTU RE urine pH 5.5 (5.0-8 .0) Not Available [facility] [address] [place], [address], 04/25/2022 03:12:04 04/24/20 22 04/25/2022 UA W/REF JOLEEN CULTU RE urine albumin NEGATI VE (neg) Not Available [facility] [address] [place], [address], 04/25/2022 03:12:04 04/24/20 22 04/25/2022 UA W/REF JOLEEN CULTU RE urine glucose NEGATI VE (neg) Not Available [facility] [address] [place], [address], 04/25/2022 03:12:04 04/24/20 22 04/25/2022 UA W/REF JOLEEN CULTU RE urine ketones NEGATI VE (neg) Not Available [facility] [address] [place], [address], 04/25/2022 03:12:04 04/24/20 22 04/25/2022 UA W/REF JOLEEN CULTU RE urine bilirubin NEGATI VE (neg) Not Available [facility] [address] [place], [address], 04/25/2022 03:12:04 04/24/20 22 04/25/2022 UA W/REF JOLEEN CULTU RE urine hemoglobin NEGATI VE (neg) Not Available [facility] [address] [place], [address], 04/25/2022 03:12:04 04/24/20 22 04/25/2022 UA W/REF JOLEEN CULTU RE urine nitrite NEGATI VE (neg) Not Available [facility] [address] [place], [address], 04/25/2022 03:12:04 04/24/20 22 04/25/2022 UA W/REF JOLEEN CULTU RE urine leukocyte NEGATI VE (neg) Not Available [facility] [address] [place], [address], 04/25/2022 03:12:04 04/24/20 22 04/25/2022 UA W/REF JOLEEN CULTU RE urobilinogen NORMAL mg/dL (norm) Not Available [facility] [address] [place], [address], 04/25/2022 03:12:04 04/24/20 22 04/25/2022 UA W/REF JOLEEN CULTU RE urine WBCs <1 /hpf (0-5) Not Available [facility] [address] [place], [address], 04/25/2022 03:12:04 04/24/20 22 04/25/2022 UA W/REF JOLEEN CULTU RE urine RBCs NONE SEEN /hpf (0-3) Not Available [facility] [address] [place], [address], 04/25/2022 03:12:04 04/24/20 22 04/25/2022 UA W/REF JOLEEN CULTU RE bacteria SLIGHT hpf (neg) abnormal Not Available [facility] [address] [place], [address], 04/25/2022 03:12:04 04/24/20 22 04/25/2022 UA W/REF JOLEEN CULTU RE mucus SLIGHT /lpf Not Available [facility] [address] [place], [address], 04/25/2022 03:12:04 04/24/20 22 04/25/2022 UA W/REF JOLEEN CULTU RE squamous epith 1 /hpf (0-8) Not Available [facility] [address] [place], [address], 04/25/2022 03:12:04 04/24/20 22 04/25/2022 UA W/REF JOLEEN CULTU RE hyaline cast 3 lpf (0-2) high Not Available [facility] [address] [place], [address], 04/25/2022 03:12:04 04/24/20 22 04/25/2022 UA W/REF JOLEEN CULTU RE clarity CLEAR (clear ) Not Available [facility] [address] [place], [address], 04/25/2022 03:12:04 04/24/20 22 04/25/2022 UA W/REF JOLEEN CULTU RE culture indication CULTUR E NOT INDICA SIMONE Not Available [facility] [address], [place], [address], 04/25/2022 03:12:04 Result Notes None recorded. Medical [...] Available N ot Available [employer] Marguerite [address] [place] active Not Available Not Available Not Available [...] Diagnosis/Indication Diagnosis SNOMED-CT Code Diagnosis ICD10 Code Diagnosis Note 5724 Kapil Garcia MD Main - [facility] [address] [place] [phone] 04/24/2022 13:50:34 04/29/2022 15:28:00 Dysuria [id number] R30.0 Seen by PCP yesterday who said her creatinine was mildly elevated and to push fluids. U/A unremarkab le for UTI but will send culture. Health Concerns Section Related Observation LastModified by Organization Detai ls LastModified Time None Recorded Concern Status LastModified by Organization Details LastModified Time None Recorded Advance Directives Directive None Recorded Payers Encounter Date Sequence Insurance Name Policy Number Policy Bowser Covered Member ID Bowser Member ID Guarantor Name 04/24/2022 1 [facility] - DOS PRIOR TO 2022 - DUAL ELIGIBLE (MEDICARE REPLACEMENT/ADV ANTAGE - HMO) Sally Rodriguez [id number] Sally Rodriguez Notes Date Note Type Note [...] .................. .................. .................. .................. .................. .................. ............... Last Ironer Note: Sc12 to address for uti symptoms. [...] .................. ............... Disposition: Fulfilled Kapil Garcia MD [address] [facility],[address], [place], [address], [employer] 04/24/2022 20:37:39 OBGyn Episode No OBEpisode recorded.
--- OUTSIDE RECORDS SUMMARY | 2024-07-16 14:34 | XMS_ITS ---
Author Organization [facility] Address [address] [place] [address] Care Team Providers Care Vender Name Role Phone Jose Gibbons [phone] ALLERGIES, ADVERSE REACTIONS, ALERTS Substance Code Code System Type Reaction Severity Status Start Date End Date Sulfa (Sulfonamide Antibiotics) RxNorm Drug allergy () 0 erythromycin base 4053 RxNorm Drug allergy () 0 tyloxapol 70101 RxNorm Drug allergy () 0 Percodan 49844 RxNorm Drug allergy () 0 MEDICATIONS Medication Code Code System Start Date Stop Date Route Dosage Directions Fill Instructions meloxicam RxNorm aspirin RxNorm 4 calcium carbonate RxNorm 04/12/20 24 calcium carbonate RxNorm Vitamin D3 RxNorm 4 famotidine RxNorm 05/07/20 24 lorazepam RxNorm metformin HCl RxNorm 04/12/20 24 gabapentin RxNorm 4 metoprolol succinate RxNorm ipratropium bromide RxNorm 4 olmesartan medoxomil RxNorm 4 escitalopram oxalate RxNorm 06/02/2024 Premarin RxNorm rosuvastatin calcium RxNorm 04/12/20 24 Lantus Solostar U-100 Insulin RxNorm Alvesco RxNorm Alvesco RxNorm 4 Farxiga RxNorm Farxiga RxNorm 01/27/2024 Arnuity Ellipta RxNorm Xembify RxNorm FreeStyle Marguerite 2 Sensor RxNorm PROBLEMS Problem Name Code Code System Start Date End Date Stat us Essential (primary) hypertension 80095774 [facility] Active Type 1 diabetes mellitus 56805029 [facility] Active Other hyperlipidemia 4586621 [facility] Active Anxiety disorder, unspecified 83966528 [facility] Active Depression, unspecified 71809824 [facility] Active Unspecified asthma 914221806 [facility] A ctive Other heart disorders in diseases classified elsewhere 55977283 [facility] Active Contusion of right knee, initial encounter [id number] [facility] 06/25/2024 Activ e Contusion of right hip, initial encounter [id number] [facility] 06/25/2024 Activ e ENCOUNTERS Encounter Diagnosis Code Code System Date Stat us Contusion of right knee, ini tial encounter [id number] [facility] 06/25/2024 Active Contusion of right hip, init ial encounter [id number] [facility] 06/25/2024 Active IMMUNIZATIONS * None VITAL SIGNS Code Code System Vitals Name Date Value and Un its 8462-4 [facility] Blood Pressure-Diastolic 06/25/2024 82 mmHg 8480-6 [facility] Blood Pressure-Systolic 06/25/2024 1 38 mmHg 8867-4 [facility] Heart Rate 06/25/2024 61 /min 9279-1 [facility] Respiratory Rate 06/25/2024 20 /min 8310-5 [facility] Body Temperature 06/25/2024 96.5 F 71148-5 [facility] Oxygen Saturation 06/25/2024 96 % SOCIAL HISTORY * None PROCEDURES * None MEDICAL EQUIPMENT * Patient has no history of implantable devices ASSESSMENT Assessment I do not see any acute abnor mality on the x-ray. This will be reviewed by a radiologist. If any abnormality is seen we will contact you with the results.You do have significant degenerative changes, as you know, in the knee.Take Tylenol 650 mg orally every 6 hours as needed.Please arrange follow-up with your orthopedist.If symptoms are worsening please be reevaluated TREATMENT PLAN Type Description Date APPOINTMENT If not feeling macario r in 3 day(s), please see your primary care physician. If you do not have a primary care physician, please return to this clinic. 06/25/2024 Lab Tests None GOALS * None HEALTH CONCERNS * No Health Concerns FUNCTIONAL AND COGNITIVE STATUS * None CONSULTATION NOTES * None DISCHARGE SUMMARY NOTES * None HISTORY AND PHYSICAL NOTES * Patient: NAN GOODMAN, Sex: F (ID# [id number]) Date of : 1955 (68 years) Visit on 06/25/2024 (Log# [id number]) Historian: Self Triage Notes: tripped and fell o=about one month ago still having pain in right knee History of Present Illness: 68-year-old female with known significant DJD of the right knee presenting for evaluation of right hip and knee pain. Patient fell about 1 month ago. She states she has continued to have some soreness in her hip and knee. She has an orthopedist and shortly before the fall did have an injection of gel into the knee. She has no weakness or numbness. She was advised to come here for evaluation and x-rays before follow-up with orthopedics. No weakness or numbness. Able to ambulate but feels a bit sore Complaint: The patient presents with a chief complaint of pain of the right knee since approximately 1 month ago. The patient also reports swelling as an abnormal symptom related to the complaint. Review of Systems: The patient complains of the following recent symptoms: Constitutional: pain: See HPI Musculoskeletal: aches/pains swelling Skin: bruised skin Allergies: Percodan: Drug allergy. tyloxapol: Drug allergy. erythromycin base: Drug allergy. Sulfa (Sulfonamide Antibiotics): Drug allergy. Medications: Alvesco: Alvesco 160 mcg/actuation HFA Aerosol with Adapter; Total Qty: 6.1 (six point one) Gram; 0refill(s); ASHLEY; Arnuity Ellipta: Arnuity Ellipta 100 mcg/actuation Blister, With Inhalation Device; Total Qty: 30 (thirty) Each; 0 refill(s); ASHLEY; aspirin: aspirin 81 mg tablet, delayed release (enteric coated); Total Qty: 28 (twenty-eight) Each;0 refill(s); ASHLEY; calcium carbonate: calcium carbonate 600 mg calcium (1,500 mg) tablet; Total Qty: 28 (twenty-eight)Tablet; 0 refill(s); ASHLEY; escitalopram oxalate: escitalopram oxalate 20 mg tablet; Total Qty: 28 (twenty- eight) Each; 0 refill(s); ASHLEY; famotidine: famotidine 20 mg tablet; Total Qty: 56 (fifty-six) Each; 0 refill(s); ASHLEY; Farxiga: Farxiga 5 mg tablet; Total Qty: 28 (twenty-eight) Tablet; 0 refill(s); ASHLEY; FreeStyle Marguerite 2 Sensor: FreeStyle Marguerite 2 Sensor Kit; Total Qty: 2 (two) Each; 0 refill(s); ASHLEY; gabapentin: gabapentin 100 mg capsule; Total Qty: 84 (eighty-four) Each; 0 refill(s); ASHLEY; ipratropium bromide: ipratropium bromide 21 mcg (0.03 %) Aerosol, Laura; Total Qty: 30 (thirty) Milliliter; 0 refill(s); ASHLEY; Lantus Solostar U-100 Insulin: Lantus Solostar U-100 Insulin 100 unit/mL (3 mL) Insulin Pen; Total Qty: 15 (fifteen) Milliliter; 0 refill(s); ASHLEY; lorazepam: lorazepam 0.5 mg tablet; Total Qty: 60 (sixty) Tablet; 0 refill(s); ASHLEY; meloxicam: meloxicam 15 mg tablet; Total Qty: 30 (thirty) Tablet; 0 refill(s); ASHLEY; metformin HCl: metformin HCl 1,000 mg tablet; Total Qty: 56 (fifty-six) Each; 0 refill(s); ASHLEY; metoprolol succinate: metoprolol succinate 25 mg Tablet, Extended Release 24 hr; Total Qty: 28 (twenty-eight) Tablet; 0 refill(s); ASHLEY; olmesartan medoxomil: olmesartan medoxomil 40 mg tablet; Total Qty: 28 (twenty- eight) Each; 0 refill(s); ASHLEY; Premarin: Premarin 0.625 mg/gram Cream With Applicator; Total Qty: 30 (thirty) Gram; 0 refill(s); ASHLEY; rosuvastatin calcium: rosuvastatin calcium 10 mg tablet; Total Qty: 28 (twenty- eight) Each; 0 refill(s); ASHLEY; Vitamin D3: Vitamin D3 10 mcg (400 unit) tablet; Total Qty: 28 (twenty-eight) Each; 0 refill(s); ASHLEY; Xembify: Xembify 10 gram/50 mL (20 %) vial; Total Qty: 200 (two hundred ) Milliliter; 0 refill(s); ASHLEY; Problem List: Essential (primary) hypertension (status Active) Type 1 diabetes mellitus (status Active) Other hyperlipidemia (status Active) Anxiety disorder, unspecified (status Active) Depression, unspecified (status Active) Unspecified asthma (status Active) Other heart disorders in diseases classified elsewhere (status Active) Surgeries: Heart/Lung surgery: other heart/lung surgery, specified as open heart quad bypass. Bone/Joint surgery: joint replacement, of RT Shoulder. Abdominal/Pelvic surgery: . Vitals: 10:05 AM (06/25/2024)Temperature: 96.5 ?F, Pulse: 61 BPM, BP: 138/82, Respirations: 20/min, O2 Saturation: 96%, O2 Delivery: RAFirst entered 06/25/2024 10:05 by Lawrence Choi Physical Exam: The following exam elements were documented to be normal: Psychiatric: oriented and alert. General: Appears well, no acute distress HEENT: - NC/AT - No conjunctival injection Lungs: No respiratory distress MSK: -Right lower extremity there is no shortening or rotation. She has no focal bony tenderness of the hip. There is no focal bony tenderness of the knee except slightly by the patella. She has no joint effusion. She has full range of motion. Steady gait. Distally neurovascular intact Skin: Warm and dry Neuro: Awake and alert, no focal CN deficits X-Rays: Study: Knee, unilateral, 3 views Code(s): 14795-QE Shielding: Transport: Ordered: 06/25/2024 10:21 by Jose Gibbons Completed: 06/25/2024 10:46 by Lona Bolanos Reading: Pending Radiologist Impression: History: Pain-Right Knee: The patient presents with a chief complaint of pain of the right knee since approximately 1 month ago. The patient also reports swelling as an abnormal symptom related to the complaint.ExaminationMultiple xray views of the right knee Comparison:None provided. FindingsBones: No evidence of acute fracture or dislocation. No suspicious lytic or sclerotic osseous lesion.Joints: Joint space narrowing, osteophyte formation, and subchondral sclerosisSoft tissues: Unremarkable visualized superficial soft tissues. IMPRESSION:1. No evidence of acute osseous or soft tissue abnormality.2. At least moderate knee osteoarthritis. Over Read Generated: 06/25/2024 11:04 by Teleradiologist Specialist Over Read Received: 06/25/2024 11:04 Over Read Reviewed: 06/25/2024 12:10 by Jose Gibbons Study: Hip, unilateral, 2-3 views Code(s): 43651-LF Shielding: Transport: Ordered: 06/25/2024 10:21 by Jose Gibbons Completed: 06/25/2024 10:47 by Lona Bolanos Reading: Pending Radiologist Impression: History: Pain-Right Knee: The patient presents with a chief complaint of pain of the right knee since approximately 1 month ago. The patient also reports swelling as an abnormal symptom related to the complaint.ExaminationAP and Lateral Xray views of the right hipComparisonNone provided. FindingsThere is no significant soft tissue swelling appreciated.There is no evidence for acute fracture.IMPRESSION:No Fracture or other acute finding identified. Over Read Generated: 06/25/2024 11:04 by Teleradiologist Specialist Over Read Received: 06/25/2024 11:04 Over Read Reviewed: 06/25/2024 12:10 by Jose Gibbons Diagnoses: Contusion of right knee, initial encounter (S80.01XA) Contusion of right hip, initial encounter (S70.01XA) Plan: If not feeling better in 3 day(s), please see your primary care physician. If you do not have a primary care physician, please return to this clinic. I do not see any acute abnormality on the x-ray. This will be reviewed by a radiologist. If any abnormality is seen we will contact you with the results. You do have significant degenerative changes, as you know, in the knee. Take Tylenol 650 mg orally every 6 hours as needed. Please arrange follow-up with your orthopedist. If symptoms are worsening please be reevaluated Visit discharged at 06/25/2024 10:56:33 AM by Jose Gibbons PA-C Signed electronically by Jose Gibbons PA-C on 06/25/2024 12:11:11 PM IMAGING NOTES * /[place] History: Pain-Right Knee: The patient presents with a chief complaint of pain of the right knee since approximately 1 month ago. The patient also reports swelling as an abnormal symptom related to the complaint.ExaminationAP and Lateral Xray views of the right hipComparisonNone provided. FindingsThere is no significant soft tissue swelling appreciated.There is no evidence for acute fracture.IMPRESSION:No Fracture or other acute finding identified. * /[place] History: Pain-Right Knee: The patient presents with a chief complaint of pain of the right knee since approximately 1 month ago. The patient also reports swelling as an abnormal symptom related to the complaint.ExaminationMultiple xray views of the right knee Comparison:None provided. FindingsBones: No evidence of acute fracture or dislocation. No suspicious lytic or sclerotic osseous lesion.Joints: Joint space narrowing, osteophyte formation, and subchondral sclerosisSoft tissues: Unremarkablevisualized superficial soft tissues. IMPRESSION:1. No evidence of acute osseous or soft tissue abnor mality.2. At least moderate knee osteoarthritis. LABORATORY REPORT NARRATIVE NOTES * None PATHOLOGY REPORT NARRATIVE NOTES * None PROGRESS NOTES * None
== END 2024-07-16 15:11 | disposition home or self-care (01) ==
PROVIDERS: PCP Internal Medicine; Visit Provider Nurse Practitioner Family
DX: J45.909 Unspecified asthma, uncomplicated (principal); G47.33 Obstructive sleep apnea (adult) (pediatric); R07.81 Pleurodynia; K21.9 Gastro-esophageal reflux disease without esophagitis; J18.9 Pneumonia, unspecified organism
CPT/HCPCS: 99214

== ENCOUNTER → 2024-07-16 14:07 | Outpatient (BNVA) | payer OTHER, SELFPAY | PROVIDERS: PCP Internal Medicine; Visit Provider Nurse Practitioner Family | DX: J45.909 Unspecified asthma, uncomplicated (principal); J18.9 Pneumonia, unspecified organism; G47.33 Obstructive sleep apnea (adult) (pediatric); R07.81 Pleurodynia; K21.9 Gastro-esophageal reflux disease without esophagitis | CPT/HCPCS: 99212 ==

== ENCOUNTER 2024-09-03 09:43 | Outpatient (AMB) | payer OTHER, SELFPAY ==
--- NOTE | 2024-09-03 09:51 | A.OFFVIS_ITS ---
Vital Signs 09/03/24 09:52 Height 5 ft 1 in Weight 208 lb BMI 39.3 BP 140/70 H Blood Pressure Location Lt brachial Position Sitting Pulse 78 Pulse Source Pulse Oximeter Pulse Oximetry (%) 94 Oxygen Delivery Method Room Air Intake Visit Reasons: Asthma Dowel Pointer Required: No Poultry Field Service Technician: Poultry Field Service Technician offered & declined Accompanied by: Self / Same As Patient Allergies oxycodone [From Percodan] Allergy (Intermediate, Verified 09/03/24 10:00) HIVES erythromycin base Adverse Reaction (Intermediate, Verified 09/03/24 10:00) GI UPSET levofloxacin [From Levaquin] Adverse Reaction (Intermediate, Verified 09/03/24 10:00) GI UPSET Sulfa (Sulfonamide Antibiotics) Adverse Reaction (Intermediate, Verified 09/03/24 10:00) HIVES Medication List - Last Reconciled 09/03/24 by Jeane Orourke LPN albuterol sulfate 2.5 mg (3 mL) inhalation Q4-6H PRN aspirin 81 mg PO DAILY calcium carbonate 600 mg PO BEDTIME ciclesonide 160 mcg/actuation (Alvesco) 2 puffs inhalation DAILY dapagliflozin propanediol (Farxiga) 5 mg PO DAILY dulaglutide (Trulicity) 0.75 mg subcut QWEEK escitalopram oxalate 20 mg PO DAILY famotidine 20 mg PO BID gabapentin 300 mg PO DAILY ipratropium bromide 2 sprays intranasal BID lorazepam 0.5 mg PO BID PRN meloxicam 15 mg PO DAILY metformin 1,000 mg PO BID metoprolol tartrate 25 mg PO BID nitroglycerin 0.4 mg sublingual PRN nystatin 400,000 units (4 mL) buccal QID rosuvastatin 10 mg PO BEDTIME torsemide 20 mg PO DAILY PRN HPI HPI Asthma: Details: Sally is a pleasant 68 year old female, less than 10 pack year history, with underlying asthma, severe MARY on CPAP, DMII, CAD s/p CABG 2021, and hypogammaglobulinemia SC weekly Dr Beck. She has been prescribed diuretics after IVIG infusion, as she develops intermittent BLE edema and orthopnea. Echo 2021 revealed LVEF 58%. She was previously on Alvesco with improvement in chest tightness and cough however developed hoarseness so discontinued. Prior CT from 07/05/2024 revealed right middle and bilateral lower lobe bronchiectasis with consolidation, treated with Vantin with minimal improvement. She continues to report chest congestion, productive cough with yellow sputum and chest tightness. She has been using flutter valve and nebulized albuterol with good effect. Denies wheezing. [facility] Medical History (Updated 09/03/24 @ 10:35 by Genie Espinal NP) Asthma Shortness of breath MARY (obstructive sleep apnea) Type 2 diabetes mellitus with unspecified complications Essential hypertension Atherosclerotic cardiovascular disease Surgical History (Updated 01/02/24 @ 12:40 by Jessy Rico NP) S/P cardiac catheterization History of shoulder surgery History of section History of tonsillectomy and adenoidectomy History of lumpectomy of left breast History of cardiac catheterization (~05/10/21) History of four vessel coronary artery bypass graft (~05/17/21) Family History Father History of heart bypass surgery Mother History of heart bypass surgery Social History Patient Tobacco Use Status: Former Tobacco user Review of Systems Const Denies chills, Denies excessive sweating, Denies fever(s), Denies headache(s) and Denies night sweats Eyes Denies dry eyes, Denies irritation and Denies itchy eyes ENT Reports Normal hearing present, Denies headache(s), Denies nasal congestion, Denies nasal discharge and Denies sore throat Card Denies chest pain, Denies chest pain at rest, Denies chest pain with activity, Denies claudication and Denies paroxysmal nocturnal dyspnea Resp Reports chest congestion, Reports cough, Denies pain on inspiration, Denies pain with cough, Denies stridor and Denies wheezing Musc Denies myalgias Neuro Reports Normal hearing present and Denies headache(s) Endo Denies excessive sweating Antelmo/Lymph Denies lymphadenopathy Aller/Immun Denies itchy eyes, Denies seasonal rhinorrhea and Denies wheezing Physical Exam Vital Signs: Last Vital Signs Pulse 78 09/03/24 09:52 BP 140/70 H 09/03/24 09:52 Pulse Ox 94 09/03/24 09:52 Oxygen Delivery Method Room Air 09/03/24 09:52 BMI result Body Mass Index 39.3 Const General: cooperative, healthy appearing, comfortable, no acute distress, well developed and alert Orientation/consciousness: patient oriented x3 Limitations: no limitations HEENT Head: Yes normal to inspection, Yes normocephalic and Yes atraumatic Ears: hearing grossly normal bilaterally and external ears normal Eyes General: appearance normal, both eyes and all related structures Eyelids: Yes eyelids normal Sclerae: sclerae normal EOM: EOMs intact bilaterally Neck Neck: Yes normal visual inspection and Yes no lymphadenopathy Lymphatic: no lymphadenopathy noted Chest Chest palpation & inspection: normal inspection of the chest Resp Effort & Inspection: normal respiratory effort, able to speak in complete sentences, no audible wheezes, no cough, no stridor, not tachypneic, no tripod positioning and no use of accessory muscles Auscultation: diminished lung sounds Cardio Jugular venous distension: no JVD Rate: regular rate Rhythm: regular rhythm Skin Other: warm, dry General skin exam: no rashes or lesions noted Neuro General: patient oriented x3 Cranial nerves: Yes Normal hearing present Cognition (Neuro): normal cognition Gait exam (Neuro): Normal gait present Extrem General: Yes normal to inspection, Yes capillary refill normal, Yes no clubbing, cyanosis or edema and Yes no pedal edema Psych Appearance: grossly normal and well kempt Speech and movement: Normal speech and movement present and Clear speech present Affect: normal affect Attitude: cooperative Thought process: Normal thought process present Thought content: Normal thought content present Insight: Good insight present (Psych) Judgement: Good judgement present (Psych) Office Procedures Nebulizer Treatment Nebulizer Treatment 57020-Gclaqiycy/MDI RX initial, or Nebulizer Subsequent Treatment Office Meds albuterol sulfate 2.5 mg/3 mL (0.083 %) solution for nebulization Performing Provider: Genie Espinal NP Performing Location: [facility] Administered by: Jeane Orourke LPN on 09/03/24 10:23 Dose Route Admin Location Dispensed Lot Number Expiration Date [facility] [employer] 2.5 mg inhalation 3 mL [id number] 06/25/25 2091-9773-31 MYLAN Assessment & Plan Assessment & Plan (1) Asthma: Code(s): J45.909 - Unspecified asthma, uncomplicated Category: Medical (2) MARY (obstructive sleep apnea): Code(s): G47.33 - Obstructive sleep apnea (adult) (pediatric) Category: Medical (3) Pleuritic pain: Code(s): R07.81 - Pleurodynia Category: Medical (4) GERD (gastroesophageal reflux disease): Code(s): K21.9 - Gastro-esophageal reflux disease without esophagitis Category: Medical (5) Pneumonia: Code(s): J18.9 - Pneumonia, unspecified organism Category: Medical Plan Prior chest CT revealed might middle and bilateral lower lobe bronchiectasis with consolidation, suggestive of pneumonia. She was treated with Vantin with suboptimal effect. She also has adverse effects to Sulfa and Levaquin. Will attempt sputum culture and patient has repeat chest CT later this month to review. Encouraged continued use of nebulizer with albuterol as well as flutter valve to improve airway clearance. All questions were answered and patient is in agreement of plan. Will follow-up to review results or sooner if needed. Orders: Orders Sputum Cult + Gram stain 09/03/24 R05.9 - Cough, unspecified AMB Nebulizer Treatment 09/03/24 J45.909 - Unspecified asthma, uncomplicated Medications: Discontinued ciclesonide 160 mcg/actuation (Alvesco) Discontinued Reason: Patient Completed Course 2 puffs inhalation DAILY 6.1 grams 0RF Coding Level of Care Code Est Pt Level 4 (75154) Diagnoses Asthma J45.909 MARY (obstructive sleep apnea) G47.33 Pleuritic pain R07.81 GERD (gastroesophageal reflux disease) K21.9 Pneumonia J18.9 CPT Codes Nebulizer Treatment - Nebulizer Treatment, initial or subsequent: 08836- Nebulizer/MDI RX initial, or Nebulizer Subsequent Treatment ([id number])
[2024-09-03 09:52] VITALS: BP 140/70; PULSE 78; O2SAT 94; BMI 39.3
--- OUTSIDE RECORDS SUMMARY | 2024-09-03 10:16 | XMS_ITS | Data Portability ---
Author Organization [employer], [employer] Address [address] [place] [phone] Care Team Providers Care Maintenance Welder Name Role Phone [facility] Referring Provider Assessment No assessment recorded. Plan of Treatment Reminders Order Date Submit Date Provider Last Modified By Organization Details Last Modified Time Details Appointments None recorde d. Lab culture , urine 022 04/24/20 HUBER [facility] (Centralized Electronic Ordering - All Locations), Patient Can Go To The Location Of Their Choice, [id number] 10:19:58 Referral None recorde d. Procedures None recorde d. Surgeries None recorde d. Imaging None recorde d. Medication Orders None recorde d. Patient TargetsNo targets recorded. Patient InstructionsNo instructions recorded. Reason for Referral None Reported. Results Created Date Observation Date Name Description Value Unit Range Abnormal Flag Note LastModifiedBy Organization Detail LastModifiedTime 04/24/2004/25/2022 UA W/REF JOLEEN CULTU RE appear/color YELLO W CLEAR Not Available [facility] (Centralized Electronic Ordering - All Locations) Patient Can Go To The Location Of Their Choice, [id number] 04/25/2022 03:12:04 04/24/20 22 04/25/2022 UA W/REF JOLEEN CULTU RE sp. gravity 1.013 (1.002 -1.030 ) Not Available [facility] (Centralized Electronic Ordering - All Locations) Patient Can Go To The Location Of Their Choice, [id number] 04/25/2022 03:12:04 04/24/20 22 04/25/2022 UA W/REF JOLEEN CULTU RE urine pH 5.5 (5.0-8 .0) Not Available [facility] (Centralized Electronic Ordering - All Locations) Patient Can Go To The Location Of Their Choice, [id number] 04/25/2022 03:12:04 04/24/20 22 04/25/2022 UA W/REF JOLEEN CULTU RE urine albumin NEGATI VE (neg) Not Available [facility] (Centralized Electronic Ordering - All Locations) Patient Can Go To The Location Of Their Choice, [id number] 04/25/2022 03:12:04 04/24/20 22 04/25/2022 UA W/REF JOLEEN CULTU RE urine glucose NEGATI VE (neg) Not Available [facility] (Centralized Electronic Ordering - All Locations) Patient Can Go To The Location Of Their Choice, [id number] 04/25/2022 03:12:04 04/24/20 22 04/25/2022 UA W/REF JOLEEN CULTU RE urine ketones NEGATI VE (neg) Not Available [facility] (Centralized Electronic Ordering - All Locations) Patient Can Go To The Location Of Their Choice, [id number] 04/25/2022 03:12:04 04/24/20 22 04/25/2022 UA W/REF JLOEEN CULTU RE urine bilirubin NEGATI VE (neg) Not Available [facility] (Centralized Electronic Ordering - All Locations) Patient Can Go To The Location Of Their Choice, [id number] 04/25/2022 03:12:04 04/24/20 22 04/25/2022 UA W/REF JOLEEN CULTU RE urine hemoglobin NEGATI VE (neg) Not Available [facility] (Centralized Electronic Ordering - All Locations) Patient Can Go To The Location Of Their Choice, [id number] 04/25/2022 03:12:04 04/24/20 22 04/25/2022 UA W/REF JOLEEN CULTU RE urine nitrite NEGATI VE (neg) Not Available [facility] (Centralized Electronic Ordering - All Locations) Patient Can Go To The Location Of Their Choice, [id number] 04/25/2022 03:12:04 04/24/20 22 04/25/2022 UA W/REF JOLEEN CULTU RE urine leukocyte NEGATI VE (neg) Not Available [facility] (Centralized Electronic Ordering - All Locations) Patient Can Go To The Location Of Their Choice, [id number] 04/25/2022 03:12:04 04/24/20 22 04/25/2022 UA W/REF JOLEEN CULTU RE urobilinogen NORMAL mg/dL (norm) Not Available [facility] (Centralized Electronic Ordering - All Locations) Patient Can Go To The Location Of Their Choice, [id number] 04/25/2022 03:12:04 04/24/20 04/25/2022 UA W/REF JOLEEN CULTU RE urine WBCs <1 /hpf (0-5) Not Available [facility] (Centralized Electronic Ordering - All Locations) Patient Can Go To The Location Of Their Choice, [facility] 04/25/2022 03:12:04 04/24/20 22 04/25/2022 UA W/REF JOLEEN CULTU RE urine RBCs NONE SEEN /hpf (0-3) Not Available [facility] (Centralized Electronic Ordering - All Locations) Patient Can Go To The Location Of Their Choice, [facility] 04/25/2022 03:12:04 04/24/20 22 04/25/2022 UA W/REF JOLEEN CULTU RE bacteria SLIGHT hpf (neg) abnormal Not Available [facility] (Centralized Electronic Ordering - All Locations) Patient Can Go To The Location Of Their Choice, [facility] 04/25/2022 03:12:04 04/24/20 22 04/25/2022 UA W/REF JOLEEN CULTU RE mucus SLIGHT /lpf Not Available [facility] (Centralized Electronic Ordering - All Locations) Patient Can Go To The Location Of Their Choice, [facility] 04/25/2022 03:12:04 04/24/20 22 04/25/2022 UA W/REF JOLEEN CULTU RE squamous epith 1 /hpf (0-8) Not Available [facility] (Centralized [facility] Ordering - All Locations) Patient Can Go To The Location Of Their Choice, [facility] 04/25/2022 03:12:04 04/24/20 22 04/25/2022 UA W/REF JOLEEN CULTU RE hyaline cast 3 lpf (0-2) high Not Available [facility] (Centralized Electronic Ordering - All Locations) Patient Can Go To The Location Of Their Choice, [facility] 04/25/2022 03:12:04 04/24/20 22 04/25/2022 UA W/REF JOLEEN CULTU RE clarity CLEAR (clear ) Not Available [facility] (Centralized Electronic Ordering - All Locations) Patient Can Go To The Location Of Their Choice, [facility] 04/25/2022 03:12:04 04/24/20 22 04/25/2022 UA W/REF JOLEEN CULTU RE culture indication CULTUR E NOT INDICA SIMONE Not Available [facility] (Centralized Electronic Ordering - All Locations) Patient Can Go To The Location Of Their Choice, [id number] 04/25/2022 03:12:04 Result Notes None recorded. Medical [...] 2nd Gen Pen Needle 32 gauge x /32 active Not Available Not Available Not Available [employer] Marguerite 2 Sensor kit active Not Available Not Available N ot Available [employer] Marguerite 2 [place] active Not Available Not Available Not Available [...] [id number] Kapil Garcia MD Main - instED [address] [place] [phone] 04/24/2022 13:50:34 04/29/2022 15:28:00 Dysuria [id number] R30.0 Seen by PCP yesterday who said [...] Bowser Member ID Guarantor Name 04/24/2022 1 [facility] - DOS PRIOR TO 2022 - DUAL ELIGIBLE (MEDICARE REPLACEMENT/ADV ANTAGE - HMO) Sally Rodriguez [id number] Sally Rodriguez Notes Date Note Type Note [...] .................. .................. .................. .................. .................. .................. ............... Engraving Supervisor Note: Sc12 to address for uti symptoms. [...] ............... Disposition: Fulfilled Kapil Garcia MD [address] [facility],[address] [facility], [place], [address], [employer], [facility] 04/24/2022 20:37:39 OBGyn Episode No OBEpisode recorded.
== END 2024-09-03 11:47 | disposition home or self-care (01) ==
LOC: HO.HPSW 09:44
PROVIDERS: PCP Internal Medicine; Visit Provider Nurse Practitioner Family
DX: J45.909 Unspecified asthma, uncomplicated (principal)
CPT/HCPCS: 99214

== ENCOUNTER → 2024-09-03 09:43 | Outpatient (BNVA) | payer OTHER, SELFPAY | PROVIDERS: PCP Internal Medicine; Visit Provider Nurse Practitioner Family | DX: J18.9 Pneumonia, unspecified organism (principal); J45.909 Unspecified asthma, uncomplicated; G47.33 Obstructive sleep apnea (adult) (pediatric); E11.9 Type 2 diabetes mellitus without complications; R07.81 Pleurodynia; K21.9 Gastro-esophageal reflux disease without esophagitis; Z95.1 Presence of aortocoronary bypass graft; Z99.89 Dependence on other enabling machines and devices | CPT/HCPCS: 94640; 99212 ==

== ENCOUNTER 2024-09-16 15:18 | Outpatient (REF) | payer OTHER, SELFPAY ==
--- NOTE | ~2024-09-16 | CT_ITS ---
CLINICAL HISTORY: J18.9 - Pneumonia, unspecified organism CT Chest without IV contrast: Comparison: 07/02/2024 Findings: Heart size is normal, with no pericardial effusion. Coronary artery calcification is present. Aorta diameter is normal. Pulmonary artery diameter is unremarkable. Lymph nodes: No adenopathy. Trachea and Esophagus: Unremarkable. No large airway obstruction. Lungs: There are multifocal consolidations involving posterior left and right lower lobes and right middle lobe. There is bronchiectasis involving medial segment of the right middle lobe and posterior left lower lobe. Pleura: No pleural effusion. Skeletal: No fractures. Median sternotomy wires are vertically aligned. Below the diaphragm: Regional visceral organs are unremarkable. A 2.8 cm left renal cortical cyst is incompletely visualized. Gallbladder is surgically absent. Impression: Chronic basilar and middle lobe interstitial and alveolar consolidations present on the previous exam are unchanged. Bronchiectasis of the medial segment right middle lobe and posterior left lower lobe also unchanged. Differential diagnosis would include cryptogenic organizing pneumonia. Tissue sampling may be of benefit. This document has been electronically signed by: Clemente Goodman MD on 09/17/2024 14:53:26
--- OUTSIDE RECORDS SUMMARY | 2024-09-16 18:02 | XMS_ITS | Data Portability ---
Author Organization [employer], [employer] Address [address] [place] [phone] Care Team Providers Care Supervisor Microfilm Duplicating Unit Name Role Phone [facility] Referring Provider Assessment No assessment recorded. Plan of Treatment Reminders Order Date Submit Date Provider Last Modified By Organization Details Last Modified Time Details Appointments None recorde d. Lab culture , urine 022 04/24/20 HUBER [facility] (Centralized Electronic Ordering - All Locations), Patient Can Go To The Location Of Their Choice, [id number] 10:19:58 Referral None recorde d. Procedures None [...] Go To The Location Of Their Choice, [id number] 04/25/2022 03:12:04 04/24/20 22 04/25/2022 UA W/REF JOLEEN CULTU RE sp. gravity 1.013 (1.002 -1.030 ) Not Available [facility] (Centralized Electronic Ordering - All Locations) Patient Can Go To The Location Of Their Choice, [id number] 04/25/2022 03:12:04 04/24/20 22 04/25/2022 UA W/REF JOLEEN CULTU RE urine pH 5.5 (5.0-8 .0) Not Available [facility] (Centralized Electronic Ordering - All Locations) Patient Can Go To The Location Of Their Choice, [id number] 04/25/2022 03:12:04 04/24/20 22 04/25/2022 UA W/REF JOLEEN CULTU RE urine albumin NEGATI VE (neg) Not Available [facility] (Centralized Electronic Ordering - All Locations) Patient Can Go To The Location Of Their Choice, [id number] 04/25/2022 03:12:04 04/24/20 22 04/25/2022 UA W/REF JOLEEN CULTU RE urine glucose NEGATI VE (neg) Not Available [facility] (Centralized Electronic Ordering - All Locations) Patient Can Go To The Location Of Their Choice, [id number] 04/25/2022 03:12:04 04/24/20 22 04/25/2022 UA W/REF JOLEEN CULTU RE urine ketones NEGATI VE (neg) Not Available [facility] (Centralized Electronic Ordering - All Locations) Patient Can Go To The Location Of Their Choice, [id number] 04/25/2022 03:12:04 04/24/20 22 04/25/2022 UA W/REF JOLEEN CULTU RE urine bilirubin NEGATI VE (neg) Not Available [facility] (Centralized Electronic Ordering - All Locations) Patient Can Go To The Location Of Their Choice, [id number] 04/25/2022 03:12:04 04/24/20 22 04/25/2022 UA W/REF JOLEEN CULTU RE urine hemoglobin NEGATI VE (neg) Not Available [facility] (Centralized Electronic Ordering - All Locations) Patient Can Go To The Location Of Their Choice, [id number] 04/25/2022 03:12:04 04/24/20 22 04/25/2022 UA W/REF JOLEEN CULTU RE urine nitrite NEGATI VE (neg) Not Available [facility] (Centralized Electronic Ordering - All Locations) Patient Can Go To The Location Of Their Choice, [id number] 04/25/2022 03:12:04 04/24/20 22 04/25/2022 UA W/REF JOLEEN CULTU RE urine leukocyte NEGATI VE (neg) Not Available [facility] (Centralized Electronic Ordering - All Locations) Patient Can Go To The Location Of Their Choice, [id number] 04/25/2022 03:12:04 04/24/20 22 04/25/2022 UA W/REF JOLEEN CULTU RE urobilinogen NORMAL mg/dL (norm) Not Available [facility] (Centralized Electronic Ordering - All Locations) Patient Can Go To The Location Of Their Choice, [id number] 04/25/2022 03:12:04 04/24/20 04/25/2022 UA W/REF JOLEEN CULTU RE urine WBCs <1 /hpf (0-5) Not Available [facility] (Centralized Electronic Ordering - All Locations) Patient Can Go To The Location Of Their Choice, [facility] 04/25/2022 03:12:04 04/24/20 22 04/25/2022 UA W/REF JOLEEN CULTU RE urine RBCs NONE SEEN /hpf (0-3) Not Available [facility] (Centralized Electronic Ordering - All Locations) Patient Can Go To The Location Of Their Choice, [facility] 04/25/2022 03:12:04 04/24/20 22 04/25/2022 UA W/REF JOLEEN CULTU RE bacteria SLIGHT hpf (neg) abnormal Not Available [facility] (Centralized Electronic Ordering - All Locations) Patient Can Go To The Location Of Their Choice, [facility] 04/25/2022 03:12:04 04/24/20 22 04/25/2022 UA W/REF JOLEEN CULTU RE mucus SLIGHT /lpf Not Available [facility] (Centralized Electronic Ordering - All Locations) Patient Can Go To The Location Of Their Choice, [facility] 04/25/2022 03:12:04 04/24/20 22 04/25/2022 UA W/REF JOLEEN CULTU RE squamous epith 1 /hpf (0-8) Not Available [facility] (Centralized Electronic Ordering - All Locations) Patient Can Go To The Location Of Their Choice, [facility] 04/25/2022 03:12:04 04/24/20 22 04/25/2022 UA W/REF JOLEEN CULTU RE hyaline cast 3 lpf (0-2) high Not Available [facility] (Centralized Electronic Ordering - All Locations) Patient Can Go To The Location Of Their Choice, [facility] 04/25/2022 03:12:04 04/24/20 22 04/25/2022 UA W/REF JOLEEN CULTU RE clarity CLEAR (clear ) Not Available [facility] (Centralized Electronic Ordering - All Locations) Patient Can Go To The Location Of Their Choice, [facility] 04/25/2022 03:12:04 04/24/20 22 04/25/2022 UA W/REF JOLEEN CULTU RE culture indication CULTUR E NOT INDICA SIMONE Not Available [facility] (Centralized Electronic Ordering - All Locations) Patient Can Go To The Location Of Their Choice, [id number] 04/25/2022 03:12:04 Result Notes None recorded. Medical [...] Available N ot Available [employer] Marguerite 2 [place] active Not Available Not Available Not Available [...] [id number] Kapil Garcia MD Main - inst[employer] [address] [place] [phone] 04/24/2022 13:50:34 04/29/2022 15:28:00 Dysuria [id number] R30.0 Seen by PCP yesterday who said [...] Bowser Member ID Guarantor Name 04/24/2022 1 [facility] - DOS PRIOR TO 2022 - DUAL ELIGIBLE (MEDICARE REPLACEMENT/ADV ANTAGE - HMO) Sally Rodriguez [id number] Sally Rodriguez Notes Date Note Type Note [...] .................. .................. .................. .................. .................. .................. ............... Senior Cost Accountant Note: Sc12 to address for uti symptoms. [...] ............... Disposition: Fulfilled Kapil Garcia MD 30 [facility],[address] [facility], [place], [address], [employer], [facility] 04/24/2022 20:37:39 OBGyn Episode No OBEpisode recorded.
== END 2024-09-16 15:19 | disposition home or self-care (01) ==
LOC: HO.CT 15:18
PROVIDERS: PCP Internal Medicine; Visit Provider Nurse Practitioner Family
DX: J18.9 Pneumonia, unspecified organism (principal)
CPT/HCPCS: 71250

== ENCOUNTER → 2024-09-16 15:20 | Outpatient (BNV) | payer OTHER, SELFPAY | PROVIDERS: PCP Internal Medicine; Visit Provider Radiology Diagnostic Radiology | DX: J84.9 Interstitial pulmonary disease, unspecified (principal); J47.9 Bronchiectasis, uncomplicated | CPT/HCPCS: 71250 ==

== ENCOUNTER 2024-09-23 13:52 | Outpatient (REF) | payer OTHER, SELFPAY ==
[2024-09-23 15:07] LABS: Rheumatoid Factor < 13.0 IU/mL (<15.0)
--- OUTSIDE RECORDS SUMMARY | 2024-09-23 16:07 | XMS_ITS | Data Portability ---
Author Organization [employer], [employer] Address [address] [place] [phone] Care Team Providers Care Fitting Room Operator Name Role Phone [facility] Referring Provider [phone] Assessment No assessment recorded. Plan of Treatment Reminders Order Date Submit Date Provider Last Modified By Organization Details Last Modified Time Details Appointments None recorde d. Lab culture , urine 022 04/24/20 HUBER [facility] (Centralized Electronic Ordering - All Locations), Patient Can Go To The Location Of Their Choice, [id number] 10:19:58 Referral None recorde d. Procedures None [...] Go To The Location Of Their Choice, [id number] 04/25/2022 03:12:04 04/24/20 22 04/25/2022 UA W/REF JOLEEN CULTU RE sp. gravity 1.013 (1.002 -1.030 ) Not Available [facility] (Centralized Electronic Ordering - All Locations) Patient Can Go To The Location Of Their Choice, [id number] 04/25/2022 03:12:04 04/24/20 22 04/25/2022 UA W/REF JOLEEN CULTU RE urine pH 5.5 (5.0-8 .0) Not Available [facility] (Centralized Electronic Ordering - All Locations) Patient Can Go To The Location Of Their Choice, [id number] 04/25/2022 03:12:04 04/24/20 22 04/25/2022 UA W/REF JOLEEN CULTU RE urine albumin NEGATI VE (neg) Not Available [facility] (Centralized Electronic Ordering - All Locations) Patient Can Go To The Location Of Their Choice, [id number] 04/25/2022 03:12:04 04/24/20 22 04/25/2022 UA W/REF JOLEEN CULTU RE urine glucose NEGATI VE (neg) Not Available [facility] (Centralized Electronic Ordering - All Locations) Patient Can Go To The Location Of Their Choice, [id number] 04/25/2022 03:12:04 04/24/20 22 04/25/2022 UA W/REF JOLEEN CULTU RE urine ketones NEGATI VE (neg) Not Available [facility] (Centralized Electronic Ordering - All Locations) Patient Can Go To The Location Of Their Choice, [id number] 04/25/2022 03:12:04 04/24/20 22 04/25/2022 UA W/REF JOLEEN CULTU RE urine bilirubin NEGATI VE (neg) Not Available [facility] (Centralized Electronic Ordering - All Locations) Patient Can Go To The Location Of Their Choice, [id number] 04/25/2022 03:12:04 04/24/20 22 04/25/2022 UA W/REF JOLEEN CULTU RE urine hemoglobin NEGATI VE (neg) Not Available [facility] (Centralized Electronic Ordering - All Locations) Patient Can Go To The Location Of Their Choice, [id number] 04/25/2022 03:12:04 04/24/20 22 04/25/2022 UA W/REF JOLEEN CULTU RE urine nitrite NEGATI VE (neg) Not Available [facility] (Centralized Electronic Ordering - All Locations) Patient Can Go To The Location Of Their Choice, [id number] 04/25/2022 03:12:04 04/24/20 22 04/25/2022 UA W/REF JOLEEN CULTU RE urine leukocyte NEGATI VE (neg) Not Available [facility] (Centralized Electronic Ordering - All Locations) Patient Can Go To The Location Of Their Choice, [id number] 04/25/2022 03:12:04 04/24/20 22 04/25/2022 UA W/REF JOLEEN CULTU RE urobilinogen NORMAL mg/dL (norm) Not Available [facility] (Centralized Electronic Ordering - All Locations) Patient Can Go To The Location Of Their Choice, [id number] 04/25/2022 03:12:04 04/24/20 04/25/2022 UA W/REF JOLEEN CULTU RE urine WBCs <1 /hpf (0-5) Not Available [facility] (Centralized Electronic Ordering - All Locations) Patient Can Go To The Location Of Their Choice, [facility] 04/25/2022 03:12:04 04/24/20 22 04/25/2022 UA W/REF JOLEEN CULTU RE urine RBCs NONE SEEN /hpf (0-3) Not Available [facility] (Centralized Electronic Ordering - All Locations) Patient Can Go To The Location Of Their Choice, [facility] 04/25/2022 03:12:04 04/24/20 22 04/25/2022 UA W/REF JOLEEN CULTU RE bacteria SLIGHT hpf (neg) abnormal Not Available [facility] (Centralized Electronic Ordering - All Locations) Patient Can Go To The Location Of Their Choice, [facility] 04/25/2022 03:12:04 04/24/20 22 04/25/2022 UA W/REF JOLEEN CULTU RE mucus SLIGHT /lpf Not Available [facility] (Centralized Electronic Ordering - All Locations) Patient Can Go To The Location Of Their Choice, [facility] 04/25/2022 03:12:04 04/24/20 22 04/25/2022 UA W/REF JOLEEN CULTU RE squamous epith 1 /hpf (0-8) Not Available [facility] (Centralized Electronic Ordering - All Locations) Patient Can Go To The Location Of Their Choice, [facility] 04/25/2022 03:12:04 04/24/20 22 04/25/2022 UA W/REF JOLEEN CULTU RE hyaline cast 3 lpf (0-2) high Not Available [facility] (Centralized Electronic Ordering - All Locations) Patient Can Go To The Location Of Their Choice, [facility] 04/25/2022 03:12:04 04/24/20 22 04/25/2022 UA W/REF JOLEEN CULTU RE clarity CLEAR (clear ) Not Available [facility] (Centralized Electronic Ordering - All Locations) Patient Can Go To The Location Of Their Choice, [facility] 04/25/2022 03:12:04 04/24/20 22 04/25/2022 UA W/REF JOLEEN CULTU RE culture indication CULTUR E NOT INDICA SIMONE Not Available [facility] (Centralized Electronic Ordering - All Locations) Patient Can Go To The Location Of Their Choice, [id number] 04/25/2022 03:12:04 Result Notes None recorded. Medical [...] Available N ot Available [employer] Marguerite 2 [place] active Not Available Not Available Not Available [...] [id number] Kapil Garcia MD Main - inst[employer] [address] [place] [phone] 04/24/2022 13:50:34 04/29/2022 15:28:00 Dysuria [id number] R30.0 Seen by PCP yesterday who said [...] Bowser Member ID Guarantor Name 04/24/2022 1 [facility] - DOS PRIOR TO 2022 - DUAL ELIGIBLE (MEDICARE REPLACEMENT/ADV ANTAGE - HMO) Sally Rodriguez [id number] Sally Rodriguez Notes Date Note Type Note [...] .................. .................. .................. .................. .................. .................. ............... Tube Bender Hand Note: Sc12 to address for uti symptoms. [...] ............... Disposition: Fulfilled Kapil Garcia MD 30 [facility],[address] [facility], [place], [address], [employer], [facility] 04/24/2022 20:37:39 OBGyn Episode No OBEpisode recorded.
[2024-09-27 19:29] LABS: Cyclic Citrullinated Peptide <16 UNITS
[2024-09-27 22:07] LABS: Anti DNA DS Antibody <1 IU/mL; Antibody to SS-A Antigen <1.0 NEG AI (<1.0 NEG); Antibody to SS-B Antigen <1.0 NEG AI (<1.0 NEG); Scleroderma 70 Antibody <1.0 NEG AI (<1.0 NEG)
[2024-09-28 07:03] LABS: ANA Pattern 2 Nuclear, Nucleolar; ANA Pattern 3 Nuclear, Homogeneous; Anti Nuclear Antibody Pattern Nuclear, Speckled; Anti Nuclear Antibody Screen POSITIVE (NEGATIVE)
[2024-09-30 13:17] LABS: Asperg fumigatus Precip Abs NEGATIVE (NEGATIVE); Micropoly faeni Abs NEGATIVE (NEGATIVE); Pigeon serum Abs NEGATIVE (NEGATIVE); Saccharo pora viridis Abs NEGATIVE (NEGATIVE); Thermo candidus Abs NEGATIVE (NEGATIVE); Thermoa vulgaris #1 NEGATIVE (NEGATIVE)
== END 2024-09-23 13:53 | disposition home or self-care (01) ==
LOC: HO.LAB 13:52
PROVIDERS: PCP Internal Medicine; Visit Provider Nurse Practitioner Family
DX: J84.9 Interstitial pulmonary disease, unspecified (principal)
CPT/HCPCS: 36415; 86038; 86039; 86200; 86225; 86235; 86331; 86431; 86606; 86609

== ENCOUNTER 2024-10-15 09:47 | Outpatient (AMB) | payer OTHER, SELFPAY ==
--- NOTE | 2024-10-15 09:51 | A.OFFVIS_ITS ---
Vital Signs 10/15/24 09:52 Height 5 ft 1 in Weight 204 lb BMI 38.5 BP 130/76 Blood Pressure Location Lt brachial Position Sitting Pulse 69 Pulse Source Pulse Oximeter Pulse Oximetry (%) 97 Oxygen Delivery Method Room Air Intake Visit Reasons: Asthma Allergies oxycodone [From Percodan] Allergy (Intermediate, Verified 10/15/24 10:02) HIVES erythromycin base Adverse Reaction (Intermediate, Verified 10/15/24 10:02) GI UPSET levofloxacin [From Levaquin] Adverse Reaction (Intermediate, Verified 10/15/24 10:02) GI UPSET Sulfa (Sulfonamide Antibiotics) Adverse Reaction (Intermediate, Verified 10/15/24 10:02) HIVES HPI HPI Asthma: Details: Sally is a pleasant 68 year old female, less than 10 pack year history, with underlying asthma, severe MAYR on CPAP, DMII, CAD s/p CABG 2021, and hypogammaglobulinemia SC weekly Dr Beck. She is prescribed diuretics after xembify infusion, as she develops intermittent BLE edema and orthopnea. Echo 2021 revealed LVEF 58%. She continues to report dyspnea on exertion and intermittent productive cough/chest congestion with yellow greenish sputum, whic h she states developed after starting Xembify infusion in December. Denies fevers, chills. Prior CT from 07/05/2024 revealed right middle and bilateral lower lobe bronchiectasis with consolidation, treated with Vantin with minimal improvement. She has been using flutter valve and nebulized albuterol with good effect. Previously on ICS however worsened hoarseness so discontinued. Today she presents to review chest CT. She recently noted that she feels she intermittent aspirates with any intake, which could be contributing to cough. Denies prior h/o MBSS. Of note, patient denies prior h/o autoimmune disease, although recent labs revealed significantly elevated PIERRE. She does receive SQIG infusions which could potentially alter these findings. She also would like this office to manage severe MARY currently on [facility] with pressures 10 cmH20 and continues to report daytime fatigue. COUNTS INCLUDE 234 BEDS AT THE [facility] Medical History (Updated 10/22/24 @ 08:54 by Genie Espinal NP) Asthma Shortness of breath MARY (obstructive sleep apnea) Type 2 diabetes mellitus with unspecified complications Essential hypertension Atherosclerotic cardiovascular disease Surgical History (Updated 08/09/24 @ 12:40 by Jessy Rico NP) S/P cardiac catheterization History of shoulder surgery History of section History of tonsillectomy and adenoidectomy History of lumpectomy of left breast History of cardiac catheterization (~05/10/21) History of four vessel coronary artery bypass graft (~05/17/21) Family History Father History of heart bypass surgery Mother History of heart bypass surgery Social History Patient Tobacco Use Status: Former Tobacco user Review of Systems Const Denies chills, Denies excessive sweating, Denies fever(s), Denies headache(s) and Denies night sweats Eyes Denies dry eyes, Denies irritation and Denies itchy eyes ENT Reports Normal hearing present, Denies headache(s), Denies nasal congestion, Denies nasal discharge and Denies sore throat Card Denies chest pain, Denies chest pain at rest, Denies chest pain with activity, Denies claudication, Reports dyspnea on exertion and Denies paroxysmal nocturnal dyspnea Resp Reports change in phlegm color, Reports chest congestion, Reports cough, Denies hemoptysis, Denies pain on inspiration, Denies pain with cough, Reports dyspnea on exertion, Denies stridor and Denies wheezing Musc Denies myalgias Neuro Reports Normal hearing present and Denies headache(s) Endo Denies excessive sweating Antelmo/Lymph Denies lymphadenopathy Aller/Immun Denies itchy eyes, Denies seasonal rhinorrhea and Denies wheezing Physical Exam Vital Signs: Last Vital Signs Pulse 69 10/15/24 09:52 BP 130/76 10/15/24 09:52 Pulse Ox 97 10/15/24 09:52 Oxygen Delivery Method Room Air 10/15/24 09:52 BMI result Body Mass Index 38.5 Const General: cooperative, healthy appearing, comfortable, no acute distress, well developed and alert Orientation/consciousness: patient oriented x3 Limitations: no limitations HEENT Head: Yes normal to inspection, Yes normocephalic and Yes atraumatic Ears: hearing grossly normal bilaterally and external ears normal Eyes General: appearance normal, both eyes and all related structures Eyelids: Yes eyelids normal Sclerae: sclerae normal EOM: EOMs intact bilaterally Neck Neck: Yes normal visual inspection and Yes no lymphadenopathy Lymphatic: no lymphadenopathy noted Chest Chest palpation & inspection: normal inspection of the chest Resp Effort & Inspection: normal respiratory effort, able to speak in complete sentences, no audible wheezes, no cough, no stridor, not tachypneic, no tripod positioning and no use of accessory muscles Auscultation: diminished lung sounds Cardio Jugular venous distension: no JVD Rate: regular rate Rhythm: regular rhythm Skin Other: warm, dry General skin exam: no rashes or lesions noted Neuro General: patient oriented x3 Cranial nerves: Yes Normal hearing present Cognition (Neuro): normal cognition Gait exam (Neuro): Normal gait present Extrem General: Yes normal to inspection, Yes capillary refill normal, Yes no clubbing, cyanosis or edema and Yes no pedal edema Psych Appearance: grossly normal and well kempt Speech and movement: Normal speech and movement present and Clear speech present Affect: normal affect Attitude: cooperative Thought process: Normal thought process present Thought content: Normal thought content present Insight: Good insight present (Psych) Judgement: Good judgement present (Psych) Results Reviewed Results Reviewed: [place] [id number] CT Scan Report Signed Patient: Sally Rodriguez MR#: [id number] : 1955 Acct:[id number] Age/Sex: 68 / F ADM Date: 09/16/24 Loc: .CT Attending Dr: Genie Espinal NP Ordering Physician: Genie Espinal NP Date of Service: 09/16/24 Procedure(s): CT chest wo IV con Accession Number(s): [id number] cc: ROBERT AHN MD; Genie Espinal NP~ Report Number: [id number]: Total DLP = 210.00 mGy-cm CLINICAL HISTORY: J18.9 - Pneumonia, unspecified organism CT Chest without IV contrast: Comparison: 07/02/2024 Findings: Heart size is normal, with no pericardial effusion. Coronary artery calcification is present. Aorta diameter is normal. Pulmonary artery diameter is unremarkable. Lymph nodes: No adenopathy. Trachea and Esophagus: Unremarkable. No large airway obstruction. Lungs: There are multifocal consolidations involving posterior left and right lower lobes and right middle lobe. There is bronchiectasis involving medial segment of the right middle lobe and posterior left lower lobe. Pleura: No pleural effusion. Skeletal: No fractures. Median sternotomy wires are vertically aligned. Below the diaphragm: Regional visceral organs are unremarkable. A 2.8 cm left renal cortical cyst is incompletely visualized. Gallbladder is surgically absent. Impression: Chronic basilar and middle lobe interstitial and alveolar consolidations present on the previous exam are unchanged. Bronchiectasis of the medial segment right middle lobe and posterior left lower lobe also unchanged. Differential diagnosis would include cryptogenic organizing pneumonia. Tissue sampling may be of benefit. 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 Assessment & Plan (1) Asthma: Code(s): J45.909 - Unspecified asthma, uncomplicated Category: Medical (2) GERD (gastroesophageal reflux disease): Code(s): K21.9 - Gastro-esophageal reflux disease without esophagitis Category: Medical (3) Bronchiectasis: Code(s): J47.9 - Bronchiectasis, uncomplicated Category: Medical (4) Dysphagia: Code(s): R13.10 - Dysphagia, unspecified Category: Medical (5) MARY (obstructive sleep apnea): Code(s): G47.33 - Obstructive sleep apnea (adult) (pediatric) Category: Medical Plan Reviewed chest CT which revealed chronic basilar and middle lobe interstitial and alveolar consolidations present on the previous exam are unchanged. Bronchiectasis of the medial segment right middle lobe and posterior left lower lobe also unchanged. Differential diagnosis would include cryptogenic organizing pneumonia. Will empirically treat with Augmentin given bronchitic symptoms and longer course of prednisone due to possibility of [employer]. Consider bronchoscopy if no improvements. Reviewed autoimmune labs and patient with significantly elevated PIERRE suggestive of underlying CTD, will further discuss with Dr. Wahl and likely enter referral to rheumatology. Will send for MBSS to rule out aspiration contributing to symptoms. Will send for in lab titration sleep study to ensure optimal pressures. At this time continue albuterol and flutter valve. Will send new order for nebulizer. All questions were answered and patient is in agreement of plan. Will follow-up in 4 weeks or sooner if needed. Orders: Orders FL Modified Barium Swallow Today R13.10 - Dysphagia, unspecified RT PSG in-lab sleep titration Today G47.33 - Obstructive sleep apnea (adult) (pediatric), R40.0 - Somnolence Medications: New prednisone see taper instructions Take 4 pills daily for 7 days, then go down by 1 pill every 7 days; 28 days 70 tabs 0RF 10 mg PO DIRECTED 70 tabs 0RF amoxicillin-pot clavulanate 875-125 mg 1 tab PO Q12H 20 tabs 0RF Coding Level of Care Code Est Pt Level 4 (23723) Complex EM visit Add On G2211 Diagnoses Asthma J45.909 GERD (gastroesophageal reflux disease) K21.9 Bronchiectasis J47.9 Dysphagia R13.10 MARY (obstructive sleep apnea) G47.33
[2024-10-15 09:52] VITALS: BP 130/76; PULSE 69; O2SAT 97; BMI 38.5
== END 2024-10-15 10:53 | disposition home or self-care (01) ==
LOC: HO.HPSW 09:48
PROVIDERS: PCP Internal Medicine; Visit Provider Nurse Practitioner Family
DX: J45.909 Unspecified asthma, uncomplicated (principal); K21.9 Gastro-esophageal reflux disease without esophagitis; J47.9 Bronchiectasis, uncomplicated; R13.10 Dysphagia, unspecified; G47.33 Obstructive sleep apnea (adult) (pediatric)
CPT/HCPCS: 99214; G2211

== ENCOUNTER → 2024-10-15 09:47 | Outpatient (BNVA) | payer OTHER, SELFPAY | PROVIDERS: PCP Internal Medicine; Visit Provider Nurse Practitioner Family | DX: J45.909 Unspecified asthma, uncomplicated (principal); G47.33 Obstructive sleep apnea (adult) (pediatric); K21.9 Gastro-esophageal reflux disease without esophagitis; J47.9 Bronchiectasis, uncomplicated; R13.10 Dysphagia, unspecified; R40.0 Somnolence; Z87.891 Personal history of nicotine dependence; Z95.1 Presence of aortocoronary bypass graft; Z99.89 Dependence on other enabling machines and devices | CPT/HCPCS: 99212 ==

== ENCOUNTER 2024-11-15 14:07 | Outpatient (AMB) | payer OTHER, SELFPAY ==
[2024-11-15 14:10] VITALS: BP 124/80; PULSE 68; BMI 38.3
--- NOTE | 2024-11-15 14:10 | MHC.OFFVIS ---
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 Recreation Required: No Allergies oxycodone (From Percodan) Allergy (Intermediate, Verified 10/15/24 10:02) HIVES erythromycin base Adverse Reaction (Intermediate, Verified 10/15/24 10:02) GI UPSET levofloxacin (From Levaquin) Adverse Reaction (Intermediate, Verified 10/15/24 10:02) GI UPSET Sulfa (Sulfonamide Antibiotics) Adverse Reaction (Intermediate, Verified 10/15/24 10:02) HIVES Medication List - Last Reconciled 11/15/24 by Brett Mena MD albuterol sulfate 2.5 mg (3 mL) inhalation Q4-6H PRN aspirin 81 mg PO DAILY calcium carbonate 600 mg PO BEDTIME dapagliflozin propanediol (Farxiga) 5 mg PO DAILY escitalopram oxalate 20 mg PO DAILY famotidine 20 mg PO BID gabapentin 300 mg PO DAILY insulin aspart U-100 (Novolog FlexPen U-100 Insulin aspart) subcut insulin glargine (Lantus Solostar U-100 Insulin) units subcut ipratropium bromide 2 sprays intranasal BID lorazepam 0.5 mg PO BID PRN meloxicam 15 mg PO DAILY metformin 1,000 mg PO BID metoprolol tartrate 25 mg PO BID nitroglycerin 0.4 mg sublingual PRN olmesartan 20 mg PO DAILY prednisone 10 mg PO DIRECTED rosuvastatin 10 mg PO BEDTIME torsemide 20 mg PO DAILY PRN HPI Comments Details: Sally returns for follow-up. History of coronary disease and bypass surgery. Multiple cardiovascular risk factors including diabetes, hypertension, dyslipidemia. In 2023, she was complaining of some chest discomfort, radiating to the shoulders. That led to another catheterization, but no significant findings. She still gets some off and on chest pains but not clear if it is something cardiac or not. Otherwise, she states she feels fine. No other new concerns. [facility] Medical History (Updated 10/25/24 @ 08:57 by Genie Espinal NP) Asthma Shortness of breath MARY (obstructive sleep apnea) Type 2 diabetes mellitus with unspecified complications Essential hypertension Atherosclerotic cardiovascular disease Surgical History (Updated 01/02/24 @ 12:40 by Jessy Rico NP) S/P cardiac catheterization History of shoulder surgery History of section History of tonsillectomy and adenoidectomy History of lumpectomy of left breast History of cardiac catheterization (~05/10/21) History of four vessel coronary artery bypass graft (~05/17/21) Family History Father History of heart bypass surgery Mother History of heart bypass surgery Social History Patient Tobacco Use Status: Former Tobacco user Review of Systems Const Denies chills, Denies fatigue, Denies fever(s), Denies frequent falls, Denies weakness, Denies weight gain and Denies weight loss ENT Denies dizziness Card Denies chest pain, Denies leg edema, Denies lightheadedness, Denies palpitations, Denies dyspnea, Denies dyspnea on exertion, Denies orthopnea and Denies other (loss of consciousness) Resp Denies cough, Denies dyspnea and Denies dyspnea on exertion GI Denies hematochezia and Denies change in stool character Musc Denies abnormal gait, Denies muscle weakness, Denies numbness, Denies radiating pain into limb and Denies tingling Neuro Denies abnormal gait, Denies dizziness, Denies frequent falls, Denies numbness, Denies tingling and Denies weakness Endo Denies fatigue and Denies palpitations Physical Exam Vital Signs: Last Vital Signs Pulse 68 11/15/24 14:10 BP 124/80 11/15/24 14:10 BMI result Body Mass Index 38.3 Const General: comfortable and no acute distress Orientation/consciousness: patient oriented x3 HEENT Other: Unremarkable Head: Yes normal to inspection Neck Neck: Yes normal visual inspection Chest Chest palpation & inspection: normal inspection of the chest Resp Auscultation: clear to auscultation bilaterally Cardio Palpation: normal PMI Heart sounds: S1 normal heart sound present, S2 normal heart sound present, no gallops, no murmurs and no rubs GI Palpation (GI): Soft to palpation Back/Spine/Pelvis Other: unremarkable Skin General skin exam: no rashes or lesions noted Neuro General: patient oriented x3 Extrem General: Yes normal to inspection Psych Mental Status: mental status grossly normal Assessment & Plan Assessment & Plan (1) Atherosclerotic cardiovascular disease: Code(s): I25.10 - Atherosclerotic heart disease of [place]yung coronary artery without angina pectoris Category: Medical Plan: Cardiac catheterization reviewed from 2023. Patent LANDERS to LAD, vein grafts to diagonal, PDA, PLV. No interventions performed. She remains on aspirin, beta-blockers and statins. May use sublingual nitroglycerin as necessary. Cholesterol is well controlled with LDL of 46 mg/dL. Triglycerides are on the higher side at 183 mg/dL. Could be related to diabetes. She will contact us as needed in and also seek emergency help as necessary. (2) Bilateral carotid artery stenosis: Code(s): I65.23 - Occlusion and stenosis of bilateral carotid arteries Category: Medical Plan: Her preoperative carotid US showed 50-69% stenosis in the right internal carotid artery and 1-49% stenosis in the left internal carotid artery. In the repeat study from 2022, no significant stenosis bilaterally. (3) Essential hypertension: Code(s): I10 - Essential (primary) hypertension Category: Medical Plan: Stable. No changes. (4) Type 2 diabetes mellitus with unspecified complications: Code(s): E11.8 - Type 2 diabetes mellitus with unspecified complications Category: Medical Plan: She is on insulin, Trulicity, metformin. (5) MARY (obstructive sleep apnea): Code(s): G47.33 - Obstructive sleep apnea (adult) (pediatric) Category: Medical Plan: CPAP. Coding Level of Care Code Est Pt Level 4 (43630) Complex EM visit Add On G2211 Diagnoses Atherosclerotic cardiovascular disease I25.10 Bilateral carotid artery stenosis I65.23 Essential hypertension I10 Type 2 diabetes mellitus with unspecified complications E11.8 MARY (obstructive sleep apnea) G47.33
--- OUTSIDE RECORDS SUMMARY | 2024-11-15 15:43 | XMS_ITS | Data Portability ---
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 Patient is here today for knee injection. REASON FOR VISIT Edit Text Patient is here today for euflexxa injections 1 of left knees. Patient reports no adverse reaction from previous injections. PHYSICAL FINDINGS Edit Text Evaluation of the knees reveals no evidence of infection, no significant joint effusion, no warmth, or erythema. The injection sites are benign. Calves are supple and nontender. 5/5 strength. Some discomfort with range of motion. ASSESSMENT Osteoarthritis of knee -left knees PLAN After meticulous sterile preparation, knee were injected with Euflexxa 20 mg. Post-injection precautions were reviewed. I recommend ice, restriction of activities and re-evaluation next week for follow up injection. [email or web address] Not available 11/11/2024 10:13:46 Plan of Treatment Reminders Order Date Submit Date Provider Last Modified By Organization Details Last Modified Time Details Appointments INJECTION ONLY 2024 02:45P Hugo Kaba PA-C Not available Not available Not available INJECTION ONLY 15 2024 09:15A Hugo Pavon PA-C Not available Not available Not available Lab None recorded. Referral None recorded. Procedures None recorded. Surgeries None recorded. Imaging XR, knee, 4 or more view - room 206, R knee 4v 2024 025 bpsandor 1 [facility], [address] [facility], [facility] [address], [place], [address], 08/27/2024 11:14:21 Medication Orders None recorded. Patient TargetsNo targets recorded. Patient InstructionsNo instructions recorded. Reason for Referral None Reported. Results Created Date Observation Date Name Description Value Unit Range Abnormal Flag Note LastModifiedBy Organization Detail LastModifiedTime 08/28/19 25 08/27/2024 XR, knee, 4 or more view http:/ [email or web address] ?Encry pted=s hAaTro YD8dLq bEUv6g %2BXZw aYqtaq 0bqfl% 2Fg9IQ a4ajBk vP9nXo QUaueC m3YtLR FvZlgJ JJ8mAn HZtai3 6i0295 AC0KqY 3%2BEU 6uuKiQ trMwF INTERFACE [facility] [address] [facility] [address], [place], [address], 08/27/2024 10:19:42 08/28/19 25 08/27/2024 XR, knee, 4 or more view [email or web address] ?Encry pted=s hAaTro YD8dLq bEUv6g %2BXZw aYqtaq 0bqfl% 2Fg9IQ a4ajBk vP9nXo QUaueC m3YtLR FvZlJ JJ8mAn HZtai3 2x5278 AC0KqY 3%2BEU 6uuKiQ trMwF INTERFACE [facility] Office [address] [facility] [address], [place], [address], 08/27/2024 10:19:46 Result Notes Documentation Provider Name and Address Organization Details Recorded Time Xr, Knee, 4 Or More View : [email or web address] Encrypted=awIgApnHH9mXbaB Uv6g%8TPAnsHflxk6qvms%2Fg 0TGb0lfFpdK7dCfCIpyfNi0Fs BBXwKvsLGU2sMcEBznz14h357 9AC8NyK7%1UOP4mmTiFrxKcL Not Available [facility] 08/27/2024 10:1 9:43 Xr, Knee, 4 Or More View : [email or web address] Encrypted=hsEaNysZN7bIhiF Uv6g%2MPDbbPpyvs4ptmx%2Fg 5TGt7ajThzD0fIwUDhosIi7Yz AGHhVeyACI1mXvRNqhb33l479 2OG9TqZ7%0CBO2xdHnIwgSbS Not Available [facility] 08/27/2024 10:1 9:46 Problems Name Problem SNOMED Code Status Onset Date Resolution Date Notes Provider Name and Address Organization Details Recorded Time Osteoarthri tis of right knee joint [id number] 00 Active 2024 Karime Villegas PA-C [address] [facility] [address], [place], [address], [facility] 22:32:00 Problem Notes None recorded. Procedures Surgical History Date Name Laterality Status Provider Name and Address Organization Details Recorded Time 5 Euflexxa Knee Injection completed Mihai Ruff PA-C [address], [place], [address], [facility] 11/11/2024 10:13:21 5 Euflexxa Knee Injection completed Karime Villegas PA-C [address], [place], [address], [facility] 10/28/2024 14:39:11 5 Euflexxa Knee Injection completed Karime Villegas PA-C [address], [place], [address], [facility] 10/21/2024 20:54:56 5 Euflexxa Knee Injection completed Karime Villegas PA-C [address], [place], [address], [facility] 10/14/2024 22:31:52 4 Euflexxa Knee Injection completed Tito Thomson PA-C [address], [place], [address], [facility] 04/09/2024 15:44:58 4 Euflexxa Knee Injection completed Tito Thomson PA-C [address], [place], [address], [facility] 04/02/2024 15:02:36 4 Euflexxa Knee Injection completed Tito Thomson PA-C [address], [place], [address], [facility] 03/26/2024 14:33:38 Imaging Results None recorded. Procedure Notes None recorded. Medical Equipment None Reported. Allergies Allergen ID Allergen Name Allergen Category Reaction Reaction Severity Criticality Documentation Date Start Date Code Code System Note Provider Name and Address Organization Details Recorded Time 453146 Substance with sulfonami de structure and antibacte rial mechanism of action (substanc e) medicatio n Not available Not available Not available 07/28/20232015 79824 8003 SNOMED Aller gyRea ction : 'Skin React ion'; Not Available [facility] 4 15:27:12 252413 Percodan medicatio n Not available Not available Not available 07/28/20232017 50319 RxNorm Not Available [facility] 4 15:27:12 732654 Levaquin medicatio n Not available Not available Not available 07/28/20232017 09871 2 RxNorm Not Available [facility] 4 15:27:12 287833 erythromy melanie medicatio n Not available Not available Not available 07/28/20232017 4053 RxNorm Not Available [facility] 4 15:27:12 Medications Name Sig Start Date Stop Date Status Note LastModified by Organization Details LastModified Time Prescriptio n - Prior Authorizati on Request active Prior auth request Not Available Not Available Not Available nystatin 100,000 unit/mL oral suspension active Not Available Not Available N ot Available doxycycline hyclate 100 mg capsule active Not Available Not Available N ot Available torsemide 20 mg tablet active Not Available Not Available Not Available meloxicam 15 mg tablet active Not Available Not Available Not Available FreeStyle Lancets 28 gauge active Not Available Not Available Not Available aspirin 81 mg tablet,josh yed release active Not Available Not Available Not Available calcium 600 mg (as calcium carbonate 1,500 mg) tablet active Not Available Not Available Not Available Vitamin D3 10 mcg (400 unit) tablet active Not Available Not Available Not Available famotidine 20 mg tablet active Not Available Not Available Not Available lorazepam 0.5 mg tablet active Not Available Not Available Not Available triamcinolo ne acetonide 0.025 % topical cream active Not Available Not Available Not Available pseudoephed rine-guaife nesin ER 80-700 mg tablet,exte nded release DO NOT DRIVE WHILE ON THIS MEDICA TION, 840.4 01/29 completed Status: 'Current '; Not Available Not Available Not Available metformin 1,000 mg tablet active Not Available Not Available Not Available nitroglycer in 0.4 mg sublingual tablet active Not Available Not Available Not Available gabapentin 300 mg capsule active Not Available Not Available Not Available hydrocortis one 2.5 % topical cream active Not Available Not Available Not Available gabapentin 100 mg capsule active Not Available Not Available Not Available metoprolol succinate ER 25 mg tablet,exte nded release 24 hr active Not Available Not Available Not Available epinephrine 0.3 mg/0.3 mL injection, auto-inject or active Not Available Not Available Not Available lisinopril 40 mg tablet active Not Available Not Available Not Available ipratropium bromide 21 mcg (0.03 %) nasal spray active Not Available Not Available Not Available Ventolin HFA 90 mcg/actuati on aerosol inhaler active Not Available Not Available Not Available olmesartan 40 mg tablet active Not Available Not Available Not Available escitalopra m 20 mg tablet active Not Available Not Available Not Available Novolog FlexPen U-100 Insulin aspart 100 unit/mL (3 mL) subcutaneou s active Not Available Not Available Not Available Premarin 0.625 mg/gram vaginal cream active Not Available Not Available Not Available rosuvastati n 10 mg tablet active Not Available Not Available Not Available Levemir FlexPen 100 unit/mL (3 mL) solution subcutaneou s insulin pen active Not Available Not Available Not Available Lantus Solostar U-100 Insulin 100 unit/mL (3 mL) subcutaneou s pen active Not Available Not Available Not Available diclofenac 1 % topical gel active Not Available Not Available Not Available Alvesco 80 mcg/actuati on aerosol inhaler active Not Available Not Available Not Available oxycodone HCl-oxycodo ne-ASA 1-2 Q 4-6 Hours Prn 01/29 completed Status: 'Current '; Not Available Not Available Not Available Gamunex-C 10 gram/100 mL (10 %) injection solution active Not Available Not Available Not Available Farxiga 5 mg tablet active Not Available Not Available No t Available Trulicity 0.75 mg/0.5 mL subcutaneou s pen injector 04/02 completed Not Available Not Available Not Available Arnuity Ellipta 100 mcg/actuati on powder for inhalation active Not Available Not Available N ot Available FreeStyle Precision Mina Strips active Not Available Not Available N ot Available Xembify 10 gram/50 mL (20 %) subcutaneou s solution active Not Available Not Available N ot Available FreeStyle Marguerite 2 Sensor kit active Not Available Not Available N ot Available Vitals Date Recorded Body height Body mass index (BMI) Body weight Provider Name and Address Organization Details Last Updated DateTime 08/27/2024 154.94 cm 36.8 kg/m2 47006.51 g Sherri Jesu [facility] 08/27/2024 10:11:42 Date Recorded Body height Body mass index (BMI) Body weight Provider Name and Address Organization Details Last Updated DateTime 10/14/2024 154.94 cm 36.8 kg/m2 39185.51 g khanh sykes [facility] 10/14/2024 12:24:22 Date Recorded Body height Provider Name an d Address Organization Details Last Updated DateTime 10/28/2024 154.94 cm KADY SUBRAMANIAN [facility] 10/28/2024 13:18:23 Date Recorded Body height Body mass index (BMI) Body weight Provider Name and Address Organization Details Last Updated DateTime 11/11/2024 154.94 cm 40.1 kg/m2 21598.58 g LETTY MENON [facility] 11/11/2024 09:44:29 Social History None recorded. Functional Status None recorded. Mental Status None recorded. Family History Nothing Reported. Medical History No medical history recorded. Gynecological HistoryNo gynecological history recorded. Obstetrics History GPAL:G 0 P 0 0 0 0 Past Encounters Encounter ID Performer Location Encounter Start Date Encounter Closed Date Diagnosis/Indication Diagnosis SNOMED-CT Code Diagnosis ICD10 Code Diagnosis Note [id number] Tito Thomson PA-C [facility] [address] [place] [address] 01/30/2024 13:54:19 01/30/2024 15:08:17 Pain of bilateral knee joints 4292051264 17294 M25.561 M25.562 Bilateral osteoarthritis of knees 1049502366 49777 M17.0 [id number] Tito Thomson PA-C [facility] [address] [place] [place] [address] 03/26/2024 13:54:31 04/17/2024 15:54:38 Primary gonarthrosis, bilateral 483732874 M17.0 [id number] Tito Thomson PA-C [facility] [address] [place] [address] 04/02/2024 14:50:24 04/19/2024 19:10:10 Primary gonarthrosis, bilateral 802236957 M17.0 [id number] Tito Thomson PA-C [facility] [address] [place] [address] 04/09/2024 13:51:18 04/28/2024 14:54:43 Primary gonarthrosis, bilateral 070958392 M17.0 [id number] Tito Thomson PA-C [facility] [address] [place] [address] 08/27/2024 09:47:58 09/07/2024 14:19:51 Pain of right knee joint 8409950581 57611 M25.561 Osteoarthr itis of right knee joint 4995337572 56240 M17.11 [id number] Karime Villegas PA-C [facility] [address] [place] [address] 10/14/2024 12:16:33 10/25/2024 14:58:56 Osteoarthritis of right knee joint 5783627929 40395 M17.11 [id number] Karime Villegas PA-C [facility] [address] [place] [address] 10/21/2024 12:24:11 10/28/2024 12:58:28 Osteoarthritis of right knee joint 7060369894 16012 M17.11 [id number] Karime Villegas PA-C [facility] [address] [place] [address] 10/28/2024 13:06:52 11/04/2024 10:33:49 Osteoarthritis of right knee joint 7380833720 21827 M17.11 [id number] Mihai Ruff PA-C [facility] [address] [place] [address] 11/11/2024 09:37:09 11/11/2024 10:13:56 Osteoarthritis of left knee joint 4003833340 08867 M17.12 Health Concerns Section Related Observation LastModified by Organization Detai ls LastModified Time None Recorded Concern Status LastModified by Organization Details LastModified Time None Recorded Advance Directives Directive None Recorded Payers Insurance Date Sequence Insurance Name Policy Number Policy Bowser Covered Member ID Bowser Member ID Guarantor Name 11/10/2024 1 [facility] - DOS ON OR AFTER 2022 - ONE CARE (MEDICARE REPLACEMENT/ADV ANTAGE - HMO) Sally Rodriguez [id number] Sally Rodriguez Notes Date Note Type Note Provider Name and Address Organization Details Recorded Time 5 text/html I am seeing the patient today under the supervision of Dr. Horn who was available but who did not see the patient. HPI: Patient comes in for recheck of left knee pain. Has known osteoarthritis in the medial compartment of the knee(s). Been treated conservatively with gel injections in the past with excellent relief. Patient states that most recently after the last injection had a fall landing on her knee. Has slowly seen improvement since that time but now has some increased achiness and soreness in the medial aspect of that knee. Past family, medical, social history and review of systems has been reviewed, updated and is located in the patient s chart. Examination:The patient is well appearing and in no apparent distress. Alert and oriented x3. Vital signs per intake sheet. Examination of the left knee reveals no effusion erythema or warmth. Decreased range of motion. Lower extremity varus deformity. Point tender over the medial joint line. Calf soft and nontender. 4+/5 strength of knee flexion extension. 4 views of the left femur ordered obtained and independently reviewed today. Radiographs show some advancing arthritis in the medial compartment with subchondral sclerosis and osteophyte formation. No acute fracture appreciated. Impression: Osteoarthritis Plan: Nature of the diagnosis discussed with the patient today. Both surgical and nonsurgical options were reviewed. Patient does not wish to pursue surgical intervention at this juncture did discuss with her the role of repeating the Euflexxa series when she is due in September of this year. Patient agrees to treatment plan will go forward with authorization for such, sooner if symptoms dictate Tito Thomson PA-C [address] [place] [address] [address], [place], [address], [facility] [place] [facility] 08/27/2024 11:03:06 5 text/html I am seeing the patient today under the supervision of Dr. Coffman who was available but who did not see the patient. HPI: Patient presenting today with known osteoarthritis of the right knee. Not happy with pain level and function of the knees. Is authorized for Euflexxa injection #1 today. No new injury. She typically sees one of my colleagues for her knees. In the past she has had viscosupplementation for bilateral knees, which was extremely helpful. Today we only have insurance approval for the right knee. She continues to take npow-txa-jwiraun medication intermittently for pain. Past family, medical, social history and review of systems has been reviewed, updated, and is located in the patient s chart. Examination: Examination of the right knee reveals no effusion, erythema, or warmth. Injection site benign. Decreased range of motion. Point tender medial joint line. Calf is soft and nontender. 5/5 strength knee flexion and extension. Impression: Right knee osteoarthritis Plan: Nature of the diagnosis discussed with the patient today. Patient agreed to proceed with an injection. Utilizing sterile technique, the right knee was injected with Euflexxa 1 unit. Patient tolerated the procedure well. Postinjection precautions reviewed. Recommended ice and rest for the next 24-48 hours. Will submit for Euflexxa authorization for the left knee. She has had viscosupplementation in bilateral knees in the past with excellent benefit. All questions answered. [facility] speech recognition vaccines solutions specialist software was used to create portions of this document. An attempt at proofreading has been made to minimize errors. Please call for corrections. Karime Villegas PA-C [address], [place], [address], [facility] 10/14/2024 22:32:17 5 text/html I am seeing the patient today under the supervision of Dr. Coffman who was available but who did not see the patient. HPI: Patient presenting today with known osteoarthritis of the right knee. Not happy with pain level and function of the knees. Is authorized for Euflexxa injection #2 today. No new injury. We are still waiting for insurance approval for left knee viscosupplementation. Past family, medical, social history and review of systems has been reviewed, updated, and is located in the patient s chart. Examination: Examination of the right knee reveals no effusion, erythema, or warmth. Injection site benign. Decreased range of motion. Point tender medial joint line. Calf is soft and nontender. 5/5 strength knee flexion and extension. Impression: Right knee osteoarthritis Plan: Nature of the diagnosis discussed with the patient today. Patient agreed to proceed with an injection. Utilizing sterile technique, the right knee was injected with Euflexxa 1 unit. Patient tolerated the procedure well. Postinjection precautions reviewed. Recommended ice and rest for the next 24-48 hours. All questions answered. Karime Villegas PA-C [address], [place], [address], [facility] 10/21/2024 20:55:28 5 text/html I am seeing the patient today under the supervision of Dr. Coffman who was available but who did not see the patient. HPI: Patient presenting today with known osteoarthritis of the right knee. Not happy with pain level and function of the knees. Is authorized for Euflexxa injection #3 today. No new injury. Past family, medical, social history and review of systems has been reviewed, updated, and is located in the patient s chart. Examination: Examination of the right knee reveals no effusion, erythema, or warmth. Injection site benign. Decreased range of motion. Point tender medial joint line. Calf is soft and nontender. 5/5 strength knee flexion and extension. Impression: Right knee osteoarthritis Plan: Nature of the diagnosis discussed with the patient today. Patient agreed to proceed with an injection. Utilizing sterile technique, the right knee was injected with Euflexxa 1 unit. Patient tolerated the procedure well. Postinjection precautions reviewed. Recommended ice and rest for the next 24-48 hours. All questions answered. Karime Villegas PA-C [address] [place] [address] [address], [place], [address], [facility] 10/28/2024 14:39:27 OBGyn Episode No OBEpisode recorded.
== END 2024-11-15 14:41 | disposition home or self-care (01) ==
LOC: HO.HCS 14:08
PROVIDERS: PCP Internal Medicine; Visit Provider Internal Medicine
DX: I25.10 Atherosclerotic heart disease of native coronary artery without angina pectoris (principal); I65.23 Occlusion and stenosis of bilateral carotid arteries; I10 Essential (primary) hypertension; E11.8 Type 2 diabetes mellitus with unspecified complications; G47.33 Obstructive sleep apnea (adult) (pediatric)
CPT/HCPCS: 93010; 99214; G2211

== ENCOUNTER → 2024-11-15 14:07 | Outpatient (BNVA) | payer OTHER, SELFPAY | PROVIDERS: PCP Internal Medicine; Visit Provider Internal Medicine | DX: I25.10 Atherosclerotic heart disease of native coronary artery without angina pectoris (principal); I10 Essential (primary) hypertension; I65.23 Occlusion and stenosis of bilateral carotid arteries; G47.33 Obstructive sleep apnea (adult) (pediatric); E11.8 Type 2 diabetes mellitus with unspecified complications; Z95.1 Presence of aortocoronary bypass graft | CPT/HCPCS: 93005; 99212 ==

== ENCOUNTER → 2024-11-19 19:30 | Outpatient (REF) | payer OTHER, SELFPAY | LOC: HO.SL 19:30 | PROVIDERS: PCP Internal Medicine; Visit Provider Nurse Practitioner Family | DX: G47.33 Obstructive sleep apnea (adult) (pediatric) (principal); R40.0 Somnolence | CPT/HCPCS: 95810; 95811 ==

== ENCOUNTER → 2024-11-19 21:33 | Outpatient (BNV) | payer OTHER, SELFPAY | PROVIDERS: PCP Internal Medicine; Visit Provider Internal Medicine | DX: G47.33 Obstructive sleep apnea (adult) (pediatric) (principal) | CPT/HCPCS: 95810 ==

== ENCOUNTER 2024-11-29 09:52 | Outpatient (AMB) | payer OTHER, SELFPAY ==
--- NOTE | 2024-11-29 10:14 | A.OFFVIS_ITS ---
Vital Signs 11/29/24 10:15 Height 5 ft 1 in Weight 207 lb BMI 39.1 BP 138/62 Blood Pressure Location Lt brachial Position Sitting Pulse 71 Pulse Source Pulse Oximeter Pulse Oximetry (%) 97 Oxygen Delivery Method Room Air Intake Visit Reasons: Asthma/Sleep Study follow up Paper Pattern Folder Required: No Allergies oxycodone (From Percodan) Allergy (Intermediate, Verified 11/29/24 10:19) HIVES erythromycin base Adverse Reaction (Intermediate, Verified 11/29/24 10:19) GI UPSET levofloxacin (From Levaquin) Adverse Reaction (Intermediate, Verified 11/29/24 10:19) GI UPSET Sulfa (Sulfonamide Antibiotics) Adverse Reaction (Intermediate, Verified 11/29/24 10:19) HIVES HPI HPI Asthma/Sleep Study follow up: Details: Sally is a pleasant 68 year old female, less than 10 pack year history, with underlying asthma, severe MARY on CPAP, DMII, CAD s/p CABG 2021, and hypogammaglobulinemia SC weekly Dr Beck. She is prescribed diuretics after xembify infusion, as she develops intermittent BLE edema and orthopnea. Echo 2021 revealed LVEF 58%. She continues to report dyspnea on exertion and intermittent productive cough/chest congestion with yellow greenish sputum, which she states developed after starting Xembify infusion in December. Denies fevers, chills. Prior CT from 07/05/2024 revealed right middle and bilateral lower lobe bronchiectasis with consolidation, treated with Vantin with minimal improvement. Repeat chest CT 09/17 with unchanged findings. She was given a cou rse of prednisone as well as Augmentin with no significant change in symptoms and continues with productive cough. She has been using flutter valve and nebulized albuterol with moderate effect. Previously on ICS however worsened hoarseness has since discontinued. Of note, patient denies prior h/o autoimmune disease, although recent labs revealed significantly elevated PIERRE and referred to rheumatology. She also reported dysphagia, questioning ongoing microaspiration and will undergo MBSS next month. At the last visit, she requested this office to manage severe MARY currently on CPAP therapy through [facility] with pressures 10 cmH20 and continues to report daytime fatigue. Today she presents to review PSG results. [facility] Medical History (Updated 10/25/24 @ 08:57 by Genie Espinal NP) Asthma Shortness of breath MARY (obstructive sleep apnea) Type 2 diabetes mellitus with unspecified complications Essential hypertension Atherosclerotic cardiovascular disease Surgical History (Updated 01/02/24 @ 12:40 by Jessy Rico NP) S/P cardiac catheterization History of shoulder surgery History of section History of tonsillectomy and adenoidectomy History of lumpectomy of left breast History of cardiac catheterization (~05/10/21) History of four vessel coronary artery bypass graft (~05/17/21) Family History Father History of heart bypass surgery Mother History of heart bypass surgery Social History Patient Tobacco Use Status: Former Tobacco user Review of Systems Const Denies chills, Denies excessive sweating, Denies fever(s), Denies headache(s) and Denies night sweats Eyes Denies dry eyes, Denies irritation and Denies itchy eyes ENT Reports Normal hearing present, Denies headache(s), Denies nasal congestion, Denies nasal discharge and Denies sore throat Card Denies chest pain, Denies chest pain at rest, Denies chest pain with activity, Denies claudication, Reports dyspnea on exertion and Denies paroxysmal nocturnal dyspnea Resp Reports change in phlegm color, Reports chest congestion, Reports cough, Denies hemoptysis, Denies pain on inspiration, Denies pain with cough, Reports dyspnea on exertion, Denies stridor and Denies wheezing Musc Denies myalgias Neuro Reports Normal hearing present and Denies headache(s) Endo Denies excessive sweating Antelmo/Lymph Denies lymphadenopathy Aller/Immun Denies itchy eyes, Denies seasonal rhinorrhea and Denies wheezing Physical Exam Vital Signs: Last Vital Signs Pulse 71 11/29/24 10:15 BP 138/62 11/29/24 10:15 Pulse Ox 97 11/29/24 10:15 Oxygen Delivery Method Room Air 11/29/24 10:15 BMI result Body Mass Index 39.1 Const General: cooperative, healthy appearing, comfortable, no acute distress, well developed and alert Orientation/consciousness: patient oriented x3 Limitations: no limitations HEENT Head: Yes normal to inspection, Yes normocephalic and Yes atraumatic Ears: hearing grossly normal bilaterally and external ears normal Eyes General: appearance normal, both eyes and all related structures Eyelids: Yes eyelids normal Sclerae: sclerae normal EOM: EOMs intact bilaterally Neck Neck: Yes normal visual inspection and Yes no lymphadenopathy Lymphatic: no lymphadenopathy noted Chest Chest palpation & inspection: normal inspection of the chest Resp Effort & Inspection: normal respiratory effort, able to speak in complete sentences, no audible wheezes, no cough, no stridor, not tachypneic, no tripod positioning and no use of accessory muscles Auscultation: diminished lung sounds Cardio Jugular venous distension: no JVD Rate: regular rate Rhythm: regular rhythm Skin Other: warm, dry General skin exam: no rashes or lesions noted Neuro General: patient oriented x3 Cranial nerves: Yes Normal hearing present Cognition (Neuro): normal cognition Gait exam (Neuro): Normal gait present Extrem General: Yes normal to inspection, Yes capillary refill normal, Yes no clubbing, cyanosis or edema and Yes no pedal edema Psych Appearance: grossly normal and well kempt Speech and movement: Normal speech and movement present and Clear speech present Affect: normal affect Attitude: cooperative Thought process: Normal thought process present Thought content: Normal thought content present Insight: Good insight present (Psych) Judgement: Good judgement present (Psych) Office Procedures Nebulizer Treatment Nebulizer Treatment Details: albuerol lot #[id number] exp 06/25/25 18399-Awkjxtzlf/MDI RX initial, or Nebulizer Subsequent Treatment Assessment & Plan Assessment & Plan (1) Asthma: Code(s): J45.909 - Unspecified asthma, uncomplicated Category: Medical (2) GERD (gastroesophageal reflux disease): Code(s): K21.9 - Gastro-esophageal reflux disease without esophagitis Category: Medical (3) Bronchiectasis: Code(s): J47.9 - Bronchiectasis, uncomplicated Category: Medical (4) Dysphagia: Code(s): R13.10 - Dysphagia, unspecified Category: Medical (5) MARY (obstructive sleep apnea): Code(s): G47.33 - Obstructive sleep apnea (adult) (pediatric) Category: Medical Plan Again reviewed chest CT which revealed chronic basilar and middle lobe interstitial and alveolar consolidations present on the previous exam are unchanged. Bronchiectasis of the medial segment right middle lobe and posterior left lower lobe also unchanged. Differential diagnosis would include cryptogenic organizing pneumonia. She was treated with Augmentin given bronchitic symptoms and longer course of prednisone due to possibility of TRANSITION RN, however minimal change, although did find some decrease in dyspnea with prednisone. Sputum culture attempted in office however did not reveal anything significant. Will proceed with bronchoscopy with Dr. Wahl. Reviewed autoimmune labs and patient with significantly elevated PIERRE suggestive of underlying CTD, and referral placed to rheumatology. MBSS scheduled next month to rule out aspiration contributing to symptoms. Reviewed in lab titration sleep study which recommended switching pressures to 6-20cm H20 which were changed in [place]. Once established on this new setting, will send for overnight oximetry to ensure resolution of mild nocturnal hypoxemia. At this time advised to continue nebulized therapy and flutter valve. All questions were answered and patient is in agreement of plan. Will follow-up in 4 weeks or sooner if needed. Orders: Orders Sputum Cult + Gram stain 11/29/24 R05.9 - Cough, unspecified Coding Level of Care Code Est Pt Level 4 (28954) Complex EM visit Add On G2211 Diagnoses Asthma J45.909 GERD (gastroesophageal reflux disease) K21.9 Bronchiectasis J47.9 Dysphagia R13.10 MARY (obstructive sleep apnea) G47.33 CPT Codes Nebulizer Treatment - Nebulizer Treatment, initial or subsequent: 62196- Nebulizer/MDI RX initial, or Nebulizer Subsequent Treatment ([id number])
[2024-11-29 10:15] VITALS: BP 138/62; PULSE 71; O2SAT 97; BMI 39.1
--- OUTSIDE RECORDS SUMMARY | 2024-11-29 10:25 | XMS_ITS | Data Portability ---
Author Organization [facility], [facility] Address [address] [place] [address] Care Team Providers Care Communications Media Professor Name Role Phone JOANNE AHNTH Primary Care Provider Assessment Encounter Date Assessment [...] up injection. [email or web address] Not available 11/11/2024 10:13:46 11/18/2024 11/18/2024 I am seeing the patient today under the supervision of Dr Nunn who was available but who did not see the patient. Patient is here today for knee injection. REASON FOR VISIT Edit Text Patient is here today for euflexxa injections 2 of left knees. Patient reports no adverse [...] re-evaluation next week for follow up injection. [email or web address] Not available 11/18/2024 14:38:21 11/25/2024 11/25/2024 I am seeing the patient today under the supervision of Dr Avery who was available but who did not see the patient. [email or web address] Not available 11/25/2024 08:59:59 Plan of Treatment Reminders Order Date Submit Date Provider Last Modified By Organization Details Last Modified Time Details Appointments None record ed. Lab None record ed. Referral None record ed. Procedures None record ed. Surgeries None record ed. Imaging None record ed. Medication Orders None record ed. Patient TargetsNo targets recorded. Patient InstructionsNo instructions recorded. Reason for Referral None Reported. Problems Name Problem SNOMED Code Status Onset Date Resolution Date Notes Provider Name and Address Organization Details Recorded Time Osteoarthri tis of right knee joint 0437208749284 00 Active 2024 Karime Villegas PA-C [address], [place], [address], [facility] 22:32:00 Problem Notes None recorded. Procedures Surgical History Date Name Laterality Status Provider Name and Address Organization Details Recorded Time 5 Euflexxa Knee Injection completed Theodore Pavon PA-C [address], [place], [address], [facility] 11/25/2024 09:14:24 5 Euflexxa Knee Injection completed Vidhya Kaba PA-C [address], [place], [address], [facility] 11/18/2024 14:38:11 5 Euflexxa Knee Injection completed Mihai Ruff PA-C [address], [place], [address], [facility] 11/11/2024 10:13:21 5 Euflexxa Knee Injection completed Karime Villegas PA-C [address], [place], [address], [facility] 10/28/2024 14:39:11 5 Euflexxa Knee Injection completed Karime Villegas PA-C [address], [place], [address], [facility] 10/21/2024 20:54:56 5 Euflexxa Knee Injection completed Karime Villegas PA-C [address], [place], [address], [facility] 10/14/2024 22:31:52 4 Euflexxa Knee Injection completed Tito Thomson PA-C [address], [place], [address], [facility] 04/09/2024 15:44:58 4 Euflexxa Knee Injection completed Tito Thomson PA-C [address], [place], [address], [facility] 04/02/2024 15:02:36 4 Euflexxa Knee Injection completed Tito Thomson PA-C [address], [place], [address], [facility] 03/26/2024 14:33:38 Imaging Results None recorded. Procedure Notes None recorded. Medical Equipment None Reported. Allergies Allergen ID Allergen Name Allergen Category Reaction Reaction Severity Criticality Documentation Date Start Date Code Code System Note Provider Name and Address Organization Details Recorded Time 372794 Substance with sulfonami de structure and antibacte rial mechanism of action (substanc e) medicatio n Not available Not available Not available 07/28/20232015 23793 8003 SNOMED Aller gyRea ction : 'Skin React ion'; Not Available [facility] 15:27:12 905511 Percodan medicatio n Not available Not available Not available 07/28/20232017 31157 RxNorm Not Available [facility] 4 15:27:12 712141 Levaquin medicatio n Not available Not available Not available 07/28/20232017 35022 2 RxNorm Not Available [facility] 4 15:27:12 226405 erythromy melanie medicatio n Not available Not available Not available 07/28/20232017 4053 RxNorm Not Available [facility] 4 15:27:12 Medications Name Sig Start Date [...] ot Available Vitals Date Recorded Body height Provider Name an d Address Organization Details Last Updated DateTime 10/28/2024 154.94 cm KADY SUBRAMANIAN [place] - [facility] 10/28/2024 13:18:23 Date Recorded Body height Body mass index (BMI) Body weight Provider Name and Address Organization Details Last Updated DateTime 11/11/2024 154.94 cm 40.1 kg/m2 79936.58 g LETTY MENON [facility] 11/11/2024 09:44:29 Date Recorded Body height Body mass index (BMI) Body weight Provider Name and Address Organization Details Last Updated DateTime 11/25/2024 154.94 cm 40.1 kg/m2 98927.58 g Luis Alberto Jernigan [facility] 11/25/2024 09:00:20 Social History None recorded. Functional Status None recorded. Mental Status None recorded. Family History Nothing Reported. Medical History No medical history recorded. Gynecological HistoryNo gynecological history recorded. Obstetrics History GPAL:G 0 P 0 0 0 0 Past Encounters Encounter ID Performer Location Encounter Start Date Encounter Closed Date Diagnosis/Indication Diagnosis SNOMED-CT Code Diagnosis ICD10 Code Diagnosis Note [id number] Tito Thomson PA-C [facility] [address] [place] [address] 01/30/2024 13:54:19 01/30/2024 15:08:17 Pain of bilateral knee joints 5028449975 41864 M25.561 M25.562 Bilateral osteoarthritis of knees 4683020778 10926 M17.0 [id number] Tito Thomson PA-C [facility] [address] [place] [address] 03/26/2024 13:54:31 04/17/2024 15:54:38 Primary gonarthrosis, bilateral 218201773 M17.0 [id number] Tito Thomson PA-C [facility] [address] [place] [address] 04/02/2024 14:50:24 04/19/2024 19:10:10 Primary gonarthrosis, bilateral 318415989 M17.0 [id number] Tito Thomson PA-C [facility] [address] [place] [address] 04/09/2024 13:51:18 04/28/2024 14:54:43 Primary gonarthrosis, bilateral 205099668 M17.0 [id number] Tito Thomson PA-C [facility] [address] [place] [address] 08/27/2024 09:47:58 09/07/2024 14:19:51 Pain of right knee joint 0326060104 60430 M25.561 Osteoarthr itis of right knee joint 4073240571 59666 M17.11 [id number] Karime Villegas PA-C [facility] [address] [place] [address] 10/14/2024 12:16:33 10/25/2024 14:58:56 Osteoarthritis of right knee joint 1812264972 66003 M17.11 [id number] Karime Villegas PA-C [facility] [address] [place] [address] 10/21/2024 12:24:11 10/28/2024 12:58:28 Osteoarthritis of right knee joint 3466775722 88916 M17.11 [id number] Karime Villegas PA-C [facility] [address] [place] [address] 10/28/2024 13:06:52 11/04/2024 10:33:49 Osteoarthritis of right knee joint 7997047484 85582 M17.11 [id number] Mhiai Ruff PA-C [facility] [address] [place] [address] 11/11/2024 09:37:09 11/16/2024 15:31:37 Osteoarthritis of left knee joint 5845156134 09102 M17.12 [id number] Vidhya Kaba PA-C [facility] [address] [place] [address] 11/18/2024 14:07:28 11/18/2024 14:38:38 Osteoarthritis of left knee joint 5151206993 70787 M17.12 [id number] Theodore Pavon PA-C [facility] [place] [address] 11/25/2024 08:56:30 11/25/2024 09:14:39 Osteoarthritis of left knee joint 3340073615 07892 M17.12 Health Concerns Section Related Observation LastModified by Organization Detai ls LastModified Time None Recorded Concern Status LastModified by Organization Details LastModified Time None Recorded Advance Directives Directive None Recorded Payers Insurance Date Sequence Insurance Name Policy Number Policy Bowser Covered Member ID Bowser Member ID Guarantor Name 11/23/2024 1 [facility] - DOS ON OR AFTER 2022 - ONE CARE (MEDICARE REPLACEMENT/ADV ANTAGE - HMO) Sally Freda IzquierdoJennifer [id number] Sally Freda Jennifer Notes Date Note Type Note Provider Name and Address Organization Details Recorded Time 10/21/2024 text/html I am seeing the patient today [...] waiting for insurance approval for left knee viscosupplementation . Past family, medical, social history and review [...] hours. All questions answered. Karime Villegas PA-C [address] [place] [address] [address], [place], [address], [facility] - [facility] 10/21/2024 20:55:28 10/28/2024 text/html I am seeing the patient today [...] All questions answered. Karime Villegas PA-C [address] [facility] [address], [place], [address], [place] - [facility] 10/28/2024 14:39:27 OBGyn Episode No OBEpisode recorded.
== END 2024-11-29 10:56 | disposition home or self-care (01) ==
LOC: HO.HPS 09:52
PROVIDERS: PCP Internal Medicine; Visit Provider Nurse Practitioner Family
DX: J45.909 Unspecified asthma, uncomplicated (principal); K21.9 Gastro-esophageal reflux disease without esophagitis; J47.9 Bronchiectasis, uncomplicated; R13.10 Dysphagia, unspecified; G47.33 Obstructive sleep apnea (adult) (pediatric)
CPT/HCPCS: 99214; G2211

== ENCOUNTER → 2024-11-29 09:52 | Outpatient (BNVA) | payer OTHER, SELFPAY | PROVIDERS: PCP Internal Medicine; Visit Provider Nurse Practitioner Family | DX: J45.909 Unspecified asthma, uncomplicated (principal); J47.9 Bronchiectasis, uncomplicated; G47.33 Obstructive sleep apnea (adult) (pediatric); K21.9 Gastro-esophageal reflux disease without esophagitis; R13.10 Dysphagia, unspecified; Z99.89 Dependence on other enabling machines and devices | CPT/HCPCS: 94640; 99212 ==

== ENCOUNTER 2024-11-29 13:55 | Outpatient (REF) | payer OTHER, SELFPAY | END 2024-11-29 13:56 | disposition home or self-care (01) | LOC: HO.LNP 13:55 | PROVIDERS: Visit Provider Nurse Practitioner Family | DX: R05.9 Cough, unspecified (principal) | CPT/HCPCS: 87070; 87205 ==

== ENCOUNTER 2024-12-15 11:13 | Day surgery (SDC) | payer OTHER, SELFPAY ==
--- OUTSIDE RECORDS SUMMARY | 2024-12-07 09:45 | XMS_ITS | Data Portability ---
Author Organization [facility], [facility] Address [address] [place] [address] Care Team Providers Care Vp Information Technology Name Role Phone ROBERT AHN Primary Care Provider Assessment Encounter Date Assessment [...] but who did not see the patient. [email or web address] Not available 11/25/2024 08:59:59 Plan of Treatment [...] Time Osteoarthri tis of right knee joint [id number] 00 Active 2024 Karime Villegas PA-C [address], [place], [address], [facility] 22:32:00 Problem Notes None recorded. Procedures Surgical History Date Name Laterality Status Provider Name and Address Organization Details Recorded Time 5 Euflexxa Knee Injection completed Theodore Pavon PA-C [address], [place], [address], [facility] 11/25/2024 09:14:24 5 Euflexxa Knee Injection completed Vidhya Kaba PA-C [address], [place], [address], [facility] 11/18/2024 14:38:11 5 Euflexxa Knee Injection completed Mihai Ruff PA-C [address], [place], [address], [facility] 11/11/2024 10:13:21 5 Euflexxa Knee Injection completed Karime Villegas PA-C [address], [place], [address], [facility] 10/28/2024 14:39:11 5 Euflexxa Knee Injection completed Karime Villegas PA-C [address], [place], [address], [facility] 10/21/2024 20:54:56 5 Euflexxa Knee Injection completed Karime Villegas PA-C [address], [place], [address], [facility] 10/14/2024 22:31:52 4 Euflexxa Knee Injection completed Tito Thomson PA-C [address], [place], [address], [facility] 04/09/2024 15:44:58 4 Euflexxa Knee Injection completed Tito Thomson PA-C [address], [place], [address], [facility] 04/02/2024 15:02:36 4 Euflexxa Knee Injection completed Tito Thomson PA-C [address], [place], [address], [facility] 03/26/2024 14:33:38 Imaging Results None recorded. Procedure Notes None recorded. Medical Equipment None Reported. Allergies Allergen ID Allergen Name Allergen Category Reaction Reaction Severity Criticality Documentation Date Start Date Code Code System Note Provider Name and Address Organization Details Recorded Time 168557 Substance with sulfonami de structure and antibacte rial mechanism of action (substanc e) medicatio n Not available Not available Not available 07/28/20232015 50640 8003 SNOMED Aller gyRea ction : 'Skin React ion'; Not Available [facility] 15:27:12 314750 Percodan medicatio n Not available Not available Not available 07/28/20232017 86259 RxNorm Not Available [facility] 4 15:27:12 802956 Levaquin medicatio n Not available Not available Not available 07/28/20232017 56267 2 RxNorm Not Available [facility] 4 15:27:12 570009 erythromy melanie medicatio n Not available Not available Not available 07/28/20232017 4053 RxNorm Not Available [facility] 4 15:27:12 Medications Name Sig Start Date [...] 10/28/2024 154.94 cm KADY SUBRAMANIAN [place] [facility] 10/28/2024 13:18:23 Date Recorded Body height Body mass index (BMI) Body weight Provider Name and Address Organization Details Last Updated DateTime 11/11/2024 154.94 cm 40.1 kg/m2 05822.58 g LETTY MENON [facility] 11/11/2024 09:44:29 Date Recorded Body height Body mass index (BMI) Body weight Provider Name and Address Organization Details Last Updated DateTime 11/25/2024 154.94 cm 40.1 kg/m2 63198.58 g Luis Alberto Jernigan [facility] 11/25/2024 09:00:20 Social History None recorded. Functional Status None recorded. Mental Status None recorded. Family History Nothing Reported. Medical History No medical history recorded. Gynecological HistoryNo gynecological history recorded. Obstetrics History GPAL:G 0 P 0 0 0 0 Past Encounters Encounter ID Performer Location Encounter Start Date Encounter Closed Date Diagnosis/Indication Diagnosis SNOMED-CT Code Diagnosis ICD10 Code Diagnosis Note [id number] Tito Thomson PA-C [facility] [address] [place] [address] 01/30/2024 13:54:19 01/30/2024 15:08:17 Pain of bilateral knee joints 9470772467 72909 M25.561 M25.562 Bilateral osteoarthritis of knees 4048048567 70093 M17.0 [id number] Tito Thomson PA-C [place] [address] [place] [address] 03/26/2024 13:54:31 04/17/2024 15:54:38 Primary gonarthrosis, bilateral 336124920 M17.0 [id number] Tito Thomson PA-C [facility] [address] [place] [address] 04/02/2024 14:50:24 04/19/2024 19:10:10 Primary gonarthrosis, bilateral 165851103 M17.0 [id number] Tito Thomson PA-C [facility] [address] [place] [address] 04/09/2024 13:51:18 04/28/2024 14:54:43 Primary gonarthrosis, bilateral 279175195 M17.0 [id number] Tito Thomson PA-C [facility] [place] [address] 08/27/2024 09:47:58 09/07/2024 14:19:51 Pain of right knee joint 9243453177 46839 M25.561 Osteoarthr itis of right knee joint 0068831556 03884 M17.11 [id number] Karime Villegas PA-C [facility] [address] [place] [address] 10/14/2024 12:16:33 10/25/2024 14:58:56 Osteoarthritis of right knee joint 2828013541 10388 M17.11 [id number] Karime Villegas PA-C [facility] [place] [address] 10/21/2024 12:24:11 10/28/2024 12:58:28 Osteoarthritis of right knee joint 6319329931 71105 M17.11 [id number] Karime Villegas PA-C [facility] [address] [place] [address] 10/28/2024 13:06:52 11/04/2024 10:33:49 Osteoarthritis of right knee joint 8603345792 00080 M17.11 [id number] Mihai Ruff PA-C [facility] [address] [place] [address] 11/11/2024 09:37:09 11/16/2024 15:31:37 Osteoarthritis of left knee joint 9537554073 21082 M17.12 [id number] Vidhya Kaba PA-C [facility] [address] [place] [address] 11/18/2024 14:07:28 11/30/2024 15:07:39 Osteoarthritis of left knee joint 1397971001 56252 M17.12 [id number] Theodore Pavon PA-C [facility] [address] [place] [address] 11/25/2024 08:56:30 11/25/2024 09:14:39 Osteoarthritis of left knee joint 0865794036 86451 M17.12 Health Concerns Section Related Observation LastModified by Organization Detai ls LastModified Time None Recorded Concern Status LastModified by Organization Details LastModified Time None Recorded Advance Directives Directive None Recorded Payers Insurance Date Sequence Insurance Name Policy Number Policy Bowser Covered Member ID Bowser Member ID Guarantor Name 11/30/2024 1 [facility] - DOS ON OR AFTER 2022 - ONE CARE (MEDICARE REPLACEMENT/ADV ANTAGE - HMO) Sally Freda IzquierdoJennifer [id number] Sally Freda Jennifer Notes Date Note Type [...] hours. All questions answered. Karime Villegas PA-C [address] [place] [address] [address], [place], [address], [facility] - [facility] 10/21/2024 20:55:28 10/28/2024 text/html [...] All questions answered. Karime Villegas PA-C [address] [facility] [address], [place], [address], [place] - [facility] 10/28/2024 14:39:27 OBGyn Episode No OBEpisode recorded.
--- OUTSIDE RECORDS SUMMARY | 2024-12-07 09:45 | XMS_ITS | Clinical Summary ---
Author Organization [facility] Address [address] [address] Phone Care Team Providers Care Child Protective Services Social Worker Name Role Phone Sallie Peña MD Primary Care Provider + Social History Tobacco Use Types Packs/Day Years Used Date Smoking Tobacco: Never Assessed Comments Unknown Sex and Gender Information Value Date Recorded Sex Assigned at Not on file Legal Sex Female 2:58 PM EDT Gender Identity Not on file Sexual Orientation Not on file Plan of Treatment Upcoming Encounters Date Type Department Care Team (Late st Contact Info) Description 01/07/2025 11:30 AM EDT Office Visit [facility] [address] [address] Oli Barros MD [address] [address] Health Maintenance Due Date Last Done Comments Breast Cancer Screening 1955 Colorectal Cancer Screening: Annual FOBT 12/28/2004 Colorectal Cancer Screening: Colonoscopy 12/28/2004 Colorectal Cancer Screening: Sigmoidoscopy 12/28/2004 Pneumococcal Vaccine: 50+ Years (3 of 3 - PCV) 04/16/2022 04/16/2021, 03/07/2010 Diabetes: Hemoglobin A1C 12/06/2024 Diabetes: Ophthalmology Exam 12/06/2024 Diabetes: Pedal Pulse Checked 12/06/2024 Diabetes: Sensory Foot Exam 12/06/2024 Diabetes: Visual Foot Exam 12/06/2024 Influenza Vaccine (#1) 2025 06/28/2019 Hepatitis B Vaccine Aged Out No longe r eligible based on patient's age to complete this topic Insurance Formerly [facility] [place]I [place] [id number] Care Teams Child Protective Services Social Worker Relationship Specialty Start Date End Date Sallie Peña MD [address] PCP - General Internal Medicine 12/06/24
[2024-12-13 12:23] VITALS: BMI 39.1
[2024-12-15 11:46] VITALS: BP 139/55; PULSE 68; RESP 18; TEMP 36.6; O2SAT 96; BMI 39.2
[2024-12-15] MEDS: Lactated Ringers 1,000 ML 100 ML IVCONT (12:02)
--- NOTE | 2024-12-15 12:12 | MHC.SHP ---
Pre-Procedural Eval Section A - 24 Hr Update-Section A only Date of Service: 12/15/24 The patient is an INPATIENT: No Changes since office visit: Yes Patient answered all questions; No Cold of Flu in the past 2 weeks, No New Medical Problems and No Changes in Medication The patient has been examined within 24 hours of the surgical procedure. The History & Physical has been completed within 30 days and I have reviewed it.: Yes Section B - Complete if H&P > 30 days Chief Complaint: Bronchiectasis, uncomplicated Allergies: Allergies Allergy/AdvReac Type Severity Reaction Status Date / Time oxycodone (From Percodan) Allergy Intermediate HIVES Verified 12/15/24 11:32 erythromycin base AdvReac Intermediate GI UPSET Verified 12/15/24 11:32 levofloxacin (From Levaquin) AdvReac Intermediate GI UPSET Verified 12/15/24 11:32 Sulfa (Sulfonamide AdvReac Intermediate HIVES Verified 12/15/24 11:32 Antibiotics) Exam Surgical H&P Exam: Normal: HEENT, Normal: Heart, Normal: Lungs, Normal: Extremities, Normal: Abdomen, Normal: Skin and Normal: Neurological Plan Diagnosis/Plan: Unchanged I have reviewed the history and physical and performed a pertinent physical examination on my patient. No changes have occurred unless specified. Time Spent With Patient Time: Total time managing care of this patient today ____ minutes.
[2024-12-15 12:15] LABS: Hematocrit 33.1 % (37.0-47.0); Hemoglobin 10.7 g/dl (12.0-16.0); Mean Corpuscular HGB Conc 32.3 g/dl (31.0-35.0); Mean Corpuscular Hemoglobin 28.2 pg (27.0-33.0); Mean Corpuscular Volume 87.1 fL (80.0-98.0); NRBC Abs Auto 0.000 X10*3/uL (0.0-0.012); NRBC Pct Auto 0.0 /100WBC (0.0-0.2); Platelet Count 254 X10*3/uL (160-400); Red Blood Count 3.80 X10*6/uL (4.20-5.50); White Blood Count 7.3 X10*3/uL (4.8-10.8)
[2024-12-15 12:24] LABS: Anion Gap 12 (12-20); Carbon Dioxide 23 mmol/L (22-29); Chloride 110 mmol/L (96-108); Creatinine Clr Calc Pharmacy 45.7; Estimated Glomerular Filt Rate 43; Potassium 5.5 mmol/L (3.3-5.1); Sodium 139 mmol/L (135-145)
[2024-12-15 12:25] LABS: Glucose, Whole Blood 176 mg/dL (60-115)
--- NOTE | 2024-12-15 13:22 | PM.OP ---
Brief Operative Note Date of Service: 12/15/24 Pre-op diagnosis: Cough, bronchiectasis Post-op diagnosis: same Procedure: Flexible bronchoscope advanced so as ET tube with patient intubated for the procedure and through the tracheobronchial tree. Normal looking, but friable mucosa noted throughout. No endobronchial lesions or mucus noted. Right middle lobe lavage performed with sample sent for further laboratory testing. Patient tolerated procedure well and was returned to PACU in stable condition. Surgeon: Dileep Wahl MD Anesthesia: GETA Was an Application Software Engineer used for this Procedure?: No Estimated blood loss (mL): 0 Condition: stable Disposition: PACU
--- NOTE | 2024-12-15 13:23 | HO.ANESPROP2 ---
[facility] Active Problems Active Problems: All Active Problems (Updated 10/25/24 @ 08:57 by Genie Espinal NP) Positive antinuclear antibody (Acute) Daytime somnolence (Acute) Dysphagia (Acute) Bronchiectasis (Acute) Interstitial lung disease (Acute) Cough (Acute) Pneumonia (Acute) Abnormal chest xray (Acute) GERD (gastroesophageal reflux disease) (Acute) Hoarseness of voice (Acute) Pleuritic pain (Acute) S/P cardiac catheterization (Acute) Asthma (Acute) Shortness of breath (Acute) Bilateral carotid artery stenosis (Acute) Status post coronary artery bypass graft (Acute) MARY (obstructive sleep apnea) (Acute) Type 2 diabetes mellitus with unspecified complications (Acute) Essential hypertension (Acute) Atherosclerotic cardiovascular disease (Acute) Past Medical History Medical History Asthma Shortness of breath MARY (obstructive sleep apnea) Type 2 diabetes mellitus with unspecified complications Essential hypertension Atherosclerotic cardiovascular disease Functional capacity: independent ambulation Patient : No Family History Family History Father History of heart bypass surgery Mother History of heart bypass surgery Family history of problems with anesthesia: No Surgical History Surgical History S/P cardiac catheterization History of shoulder surgery History of section History of tonsillectomy and adenoidectomy History of lumpectomy of left breast History of cardiac catheterization (~05/10/21) History of four vessel coronary artery bypass graft (~05/17/21) History of Problems with Anesthesia: No Social History Social History Are you a primary career advisor to a significant other at home: No Do you presently have visiting nurse or other home services: No Patient Tobacco Use Status: Former Tobacco user Use of substances other than those prescribed or required for medical reasons: No Have you been hit, kicked, punched, or otherwise hurt by someone within the past year? If so, by whom?: No Are you DNR?: No Advance Directives: No Advance Directives Information Provided: Yes Patient : No Poor oral hygiene: Yes Meds Allergies Allergy/AdvReac Type Severity Reaction Status Date / Time oxycodone (From Percodan) Allergy Intermediate HIVES Verified 12/15/24 11:32 erythromycin base AdvReac Intermediate GI UPSET Verified 12/15/24 11:32 levofloxacin (From Levaquin) AdvReac Intermediate GI UPSET Verified 12/15/24 11:32 Sulfa (Sulfonamide AdvReac Intermediate HIVES Verified 12/15/24 11:32 Antibiotics) Active Medications: Current Medications Albuterol Sulfate (Albuterol Sulfate (0.083%) 2.5 Mg/3 Ml Vial.Neb) 2.5 mg INHALE ONCE PRN PRN Reason: Shortness of Breath/Wheezing Lactated Ringer's (Lr) 1,000 mls @ 100 mls/hr IVCONT .Q10H [place] Last Admin: 12/15/24 12:02 Dose: 100 mls/hr Home Medications ?Medication ?Instructions ?Recorded ?Confirmed ?Last Taken ?Type aspirin 81 mg tablet,delayed 81 mg PO DAILY 06/19/21 12/13/24 Unknown History release famotidine 20 mg tablet 20 mg PO BID 06/19/21 12/15/24 12/15/24 History lorazepam 0.5 mg tablet 0.5 mg PO BID PRN Anxiety 06/19/21 12/13/24 Unknown History metformin 1,000 mg tablet 1,000 mg PO BID 06/19/21 12/13/24 Unknown History metoprolol tartrate 25 mg tablet 25 mg PO DAILY 06/19/21 12/15/24 12/15/24 History rosuvastatin 10 mg tablet 10 mg PO BEDTIME 06/19/21 12/13/24 Unknown History calcium carbonate 600 mg PO BEDTIME 06/13/22 12/13/24 Unknown History escitalopram oxalate 10 mg tablet 20 mg PO DAILY 06/13/22 12/13/24 Unknown History gabapentin 300 mg capsule 900 mg PO BEDTIME 06/13/22 12/13/24 Unknown History meloxicam 7.5 mg tablet 15 mg PO DAILY 06/13/22 12/13/24 Unknown History nitroglycerin 0.4 mg sublingual 0.4 mg sublingual DIRECTED PRN 06/13/22 12/13/24 Unknown History tablet angina dapagliflozin propanediol 5 mg 5 mg PO DAILY 03/15/24 12/13/24 Unknown History tablet (Farxiga) insulin aspart U-100 100 unit/mL subcut 10/15/24 11/15/24 Unknown History (3 mL) subcutaneous pen (Novolog FlexPen U-100 Insulin aspart) insulin glargine 100 unit/mL (3 10 unit subcut DAILY 10/15/24 12/13/24 Unknown History mL) subcutaneous pen (Lantus Solostar U-100 Insulin) olmesartan 40 mg tablet 20 mg PO DAILY 11/15/24 12/13/24 Unknown History albuterol sulfate 90 mcg/actuation 2 puff inhalation Q6H PRN 11/29/24 12/15/24 12/15/24 History aerosol inhaler (Ventolin HFA) Shortness Of Breath Or Wheezing cholecalciferol (vitamin D3) 10 10 mcg PO QPM 11/29/24 12/13/24 Unknown History mcg (400 unit) tablet (Vitamin D3) epinephrine 0.3 mg/0.3 mL 0.3 mg IM ONCE PRN Allergic 11/29/24 12/13/24 Unknown History injection, auto-injector Reaction estradiol 0.01% (0.1 mg/gram) 1 appl vaginal 2XW 11/29/24 12/13/24 Unknown History vaginal cream albuterol sulfate 2.5 mg/3 mL 2.5 mg inhalation TID shortness of 12/13/24 12/13/24 Unknown History (0.083 %) solution for nebulization breath or wheezing cetirizine 10 mg tablet (Zyrtec) 10 mg PO DAILY 12/13/24 12/13/24 Unknown History cranberry concentrate-ascorbic 1 cap PO DAILY 12/13/24 12/13/24 Unknown History acid 140 mg-100 mg capsule (Cranberry Plus Vitamin C) cyanocobalamin (vitamin B-12) 1,000 mcg PO DAILY 12/13/24 12/13/24 Unknown History 1,000 mcg tablet (Vitamin B-12) gabapentin 100 mg capsule 100 mg PO BID 12/13/24 12/13/24 Unknown History immune globulin,gamma(IgG)klhw 10 10 g subcut QWEEK 12/13/24 12/13/24 Unknown History gram/50 mL(20%)subcut solution (Xembify) magnesium oxide 500 mg capsule 500 mg PO DAILY 12/13/24 12/13/24 Unknown History melatonin 1 mg tablet 0.5 mg PO BEDTIME PRN Insomnia 12/13/24 12/13/24 Unknown History sodium zirconium cyclosilicate 5 5 g PO DAILY 12/13/24 12/13/24 Unknown History gram oral powder packet (Lokelma) torsemide 20 mg tablet 20 mg PO 2XW PRN swelling 12/13/24 12/13/24 Unknown History vitamin B complex 1 cap PO DAILY 12/13/24 12/13/24 Unknown History Exam Height,Weight and Vital Signs: Height 5 ft 1 in Weight 94 kg Last Vital Signs Temp 97.8 F 12/15/24 11:46 Pulse 68 12/15/24 11:46 Resp 18 12/15/24 11:46 BP 139/55 L 12/15/24 11:46 Pulse Ox 96 12/15/24 11:46 O2 Del Method Room Air 12/15/24 11:46 Pertinent Lab Results Pertinent Lab Results: Laboratory Tests 12/15/24 12/15/24 12:02 12:22 WBC 7.3 RBC 3.80 L Hgb 10.7 L Hct 33.1 L MCV 87.1 MCH 28.2 MCHC 32.3 RDW 14.7 Plt Count 254 MPV 9.4 Absolute Nucleated RBC 0.000 Nucleated RBC % (auto) 0.0 Sodium 139 Potassium 5.5 H Chloride 110 H Carbon Dioxide 23 Anion Gap 12 Creatinine 1.23 Estim Creat Clear Calc 45.7 Estimated GFR 43 POC Glucose 176 H Airway Mallampati Class: III TM Dist: >3cm Neck ROM: Full Heart: RRR Lungs: CTA Assessment and Plan Assessment Anesthesia Assessment: Anesthesia Plan Discussed and Chart Reviewed Final Anesthetic Review Family History of Problems with Anesthesia: No History of Problems with Anesthesia: No NPO: Yes ASA Class: III Final Preanesthetic Review: Meds/Allgs Chart Reviewed, Consent Obtained/Reviewed and Anes Risks/Benef Reviewed Patient Risk: Intermediate Procedure Risk: Low Anesthetic Plan Anesthetic Plan: MAC: Disposition: Standard PACU
[2024-12-15 13:30] VITALS: BP 164/63; PULSE 76; RESP 14; TEMP 36.6; O2SAT 93
[2024-12-15 13:35] VITALS: BP 171/75; PULSE 74; RESP 16; O2SAT 93
[2024-12-15 13:40] VITALS: BP 139/58; PULSE 69; RESP 18; O2SAT 93
[2024-12-15 13:45] VITALS: BP 146/61; PULSE 68; RESP 18; O2SAT 94
[2024-12-15 14:00] VITALS: BP 121/47; PULSE 64; RESP 16; TEMP 36.2; O2SAT 94
--- NOTE | 2024-12-15 17:03 | HO.POSTANES ---
Post Anesthesia Evaluation Post Anesthesia Evaluation Date of Service: 12/15/24 Vital Signs: Vital Signs Temp Pulse Resp BP Pulse Ox O2 Del Method O2 Flow Rate 12/15/24 14:00 97.1 F 64 16 121/47 L 94 Room Air 12/15/24 13:45 68 18 146/61 H 94 Nasal Cannula 2 12/15/24 13:40 69 18 139/58 L 93 Nasal Cannula 2 12/15/24 13:35 74 16 171/75 H 93 Nasal Cannula 2 12/15/24 13:30 97.8 F 76 14 164/63 H 93 Nasal Cannula 2 12/15/24 11:46 97.8 F 68 18 139/55 L 96 Room Air Anesthesia: General Endotracheal-GETA Mental Status: Awake Pain Control: Satisfactory Nausea/Vomiting: None Hydration: Adequate Anesthesia-Related Issues: No Anes. Related Issues
== END 2024-12-15 15:18 | disposition home or self-care (01) ==
PROVIDERS: PCP Internal Medicine; Visit Provider Internal Medicine Pulmonary Disease
PROC: 0BJ08ZZ Inspection of Tracheobronchial Tree, Via Natural or Artificial Opening Endoscopic (ICD-10-PCS; CPT 31622; principal; 2024-12-15 13:00)
DX: J47.9 Bronchiectasis, uncomplicated (principal); R05.9 Cough, unspecified
CPT/HCPCS: 31624; 36415; 80051; 82565; 82947; 85027; 87070; 87102; 87116; 87205; 87206; 88112; J0165; J1100; J2003; J2250; J2405; J2704; J3010

== ENCOUNTER → 2024-12-15 11:13 | Outpatient (BNV) | payer OTHER, SELFPAY | PROVIDERS: PCP Internal Medicine; Visit Provider Internal Medicine Pulmonary Disease | DX: J47.9 Bronchiectasis, uncomplicated (principal); Z87.891 Personal history of nicotine dependence | CPT/HCPCS: 31622 ==

== ENCOUNTER → 2025-01-05 10:30 | Outpatient (BNV) | payer OTHER, SELFPAY | PROVIDERS: PCP Internal Medicine; Visit Provider Radiology Diagnostic Radiology | DX: R13.10 Dysphagia, unspecified (principal) | CPT/HCPCS: 74230 ==

== ENCOUNTER 2025-01-05 10:38 | Outpatient (REF) | payer OTHER, SELFPAY ==
--- NOTE | 2024-12-14 09:59 | HO.ANESPROP2 ---
HPI - Anesthesia Eval Consult details Narrative: 68 yr old female for fiberoptic bronchoscopy Persistent VASQUES, intermittent cough/congestion since Xembify infusion Asthma: on inhalers Severe MARY: on CPAP DMII: on metformin, GLP-1, insulin CAD: s/p CABG 2021 Hypogammaglobulinemia: s/p Xembify, follows with Dr. Beck Anesthesia Pre-Procedure Meds Is the patient on any of the following meds?: GLP1/DPP4 and SGLT2 Inhib PMFSH Active Problems Active Problems: All Active Problems (Updated 10/25/24 @ 08:57 by Genie Espinal NP) Positive antinuclear antibody (Acute) Daytime somnolence (Acute) Dysphagia (Acute) Bronchiectasis (Acute) Interstitial lung disease (Acute) Cough (Acute) Pneumonia (Acute) Abnormal chest xray (Acute) GERD (gastroesophageal reflux disease) (Acute) Hoarseness of voice (Acute) Pleuritic pain (Acute) S/P cardiac catheterization (Acute) Asthma (Acute) Shortness of breath (Acute) Bilateral carotid artery stenosis (Acute) Status post coronary artery bypass graft (Acute) MARY (obstructive sleep apnea) (Acute) Type 2 diabetes mellitus with unspecified complications (Acute) Essential hypertension (Acute) Atherosclerotic cardiovascular disease (Acute) Past Medical History Medical History Asthma Shortness of breath MARY (obstructive sleep apnea) Type 2 diabetes mellitus with unspecified complications Essential hypertension Atherosclerotic cardiovascular disease Family History Family History Father History of heart bypass surgery Mother History of heart bypass surgery Surgical History Surgical History S/P cardiac catheterization History of shoulder surgery History of section History of tonsillectomy and adenoidectomy History of lumpectomy of left breast History of cardiac catheterization (~05/10/21) History of four vessel coronary artery bypass graft (~05/17/21) Social History Social History Are you a primary rn medicare to a significant other at home: No Do you presently have visiting nurse or other home services: No Patient Tobacco Use Status: Former Tobacco user Meds Allergies Allergy/AdvReac Type Severity Reaction Status Date / Time oxycodone (From Percodan) Allergy Intermediate HIVES Verified 12/15/24 11:32 erythromycin base AdvReac Intermediate GI UPSET Verified 12/15/24 11:32 levofloxacin (From Levaquin) AdvReac Intermediate GI UPSET Verified 12/15/24 11:32 Sulfa (Sulfonamide AdvReac Intermediate HIVES Verified 12/15/24 11:32 Antibiotics) Home Medications ?Medication ?Instructions ?Recorded ?Confirmed ?Last Taken ?Type aspirin 81 mg tablet,delayed 81 mg PO DAILY 06/19/21 12/13/24 Unknown History release famotidine 20 mg tablet 20 mg PO BID 06/19/21 12/15/24 12/15/24 History lorazepam 0.5 mg tablet 0.5 mg PO BID PRN Anxiety 06/19/21 12/13/24 Unknown History metformin 1,000 mg tablet 1,000 mg PO BID 06/19/21 12/13/24 Unknown History metoprolol tartrate 25 mg tablet 25 mg PO DAILY 06/19/21 12/15/24 12/15/24 History rosuvastatin 10 mg tablet 10 mg PO BEDTIME 06/19/21 12/13/24 Unknown History calcium carbonate 600 mg PO BEDTIME 06/13/22 12/13/24 Unknown History escitalopram oxalate 10 mg tablet 20 mg PO DAILY 06/13/22 12/13/24 Unknown History gabapentin 300 mg capsule 900 mg PO BEDTIME 06/13/22 12/13/24 Unknown History meloxicam 7.5 mg tablet 15 mg PO DAILY 06/13/22 12/13/24 Unknown History nitroglycerin 0.4 mg sublingual 0.4 mg sublingual DIRECTED PRN 06/13/22 12/13/24 Unknown History tablet angina dapagliflozin propanediol 5 mg 5 mg PO DAILY 03/15/24 12/13/24 Unknown History tablet (Farxiga) insulin aspart U-100 100 unit/mL subcut 10/15/24 11/15/24 Unknown History (3 mL) subcutaneous pen (Novolog FlexPen U-100 Insulin aspart) insulin glargine 100 unit/mL (3 10 unit subcut DAILY 10/15/24 12/13/24 Unknown History mL) subcutaneous pen (Lantus Solostar U-100 Insulin) olmesartan 40 mg tablet 20 mg PO DAILY 11/15/24 12/13/24 Unknown History albuterol sulfate 90 mcg/actuation 2 puff inhalation Q6H PRN 11/29/24 12/15/24 12/15/24 History aerosol inhaler (Ventolin HFA) Shortness Of Breath Or Wheezing cholecalciferol (vitamin D3) 10 10 mcg PO QPM 11/29/24 12/13/24 Unknown History mcg (400 unit) tablet (Vitamin D3) epinephrine 0.3 mg/0.3 mL 0.3 mg IM ONCE PRN Allergic 11/29/24 12/13/24 Unknown History injection, auto-injector Reaction estradiol 0.01% (0.1 mg/gram) 1 appl vaginal 2XW 11/29/24 12/13/24 Unknown History vaginal cream cetirizine 10 mg tablet (Zyrtec) 10 mg PO DAILY 12/13/24 12/13/24 Unknown History cranberry concentrate-ascorbic 1 cap PO DAILY 12/13/24 12/13/24 Unknown History acid 140 mg-100 mg capsule (Cranberry Plus Vitamin C) cyanocobalamin (vitamin B-12) 1,000 mcg PO DAILY 12/13/24 12/13/24 Unknown History 1,000 mcg tablet (Vitamin B-12) gabapentin 100 mg capsule 100 mg PO BID 12/13/24 12/13/24 Unknown History immune globulin,gamma(IgG)klhw 10 10 g subcut QWEEK 12/13/24 12/13/24 Unknown History gram/50 mL(20%)subcut solution (Xembify) magnesium oxide 500 mg capsule 500 mg PO DAILY 12/13/24 12/13/24 Unknown History melatonin 1 mg tablet 0.5 mg PO BEDTIME PRN Insomnia 12/13/24 12/13/24 Unknown History sodium zirconium cyclosilicate 5 5 g PO DAILY 12/13/24 12/13/24 Unknown History gram oral powder packet (Lokelma) torsemide 20 mg tablet 20 mg PO 2XW PRN swelling 12/13/24 12/13/24 Unknown History vitamin B complex 1 cap PO DAILY 12/13/24 12/13/24 Unknown History Exam Narrative Narrative: EKG 10/2024 with underlying sinus rhythm at 73/Min; anterior T inversions as well as lateral T inversions and similar to prior. Cardiac cath 2023: all grafts patent Echo 2021: Conclusions: - The left ventricular systolic function is normal. The calculated ejection fraction is 58% by biplane method. - No obvious valvular pathology seen on this study.
--- NOTE | ~2025-01-05 | FL_ITS ---
EXAMINATION: XR BARIUM SWALLOW CLINICAL INFORMATION: Dysphagia. COMPARISON: None available. TECHNIQUE: Modified barium swallow was performed in presence of speech therapist with various consistencies of barium coated food under lateral fluoroscopy. FINDINGS: On oral administration of thin barium there is normal propagation bolus from the oral cavity through the pharynx into esophagus without laryngeal penetration and aspiration. On oral administration of cookie coated with barium paste there is normal oral mastication and propagation of bolus from the oral cavity through the pharynx into esophagus without obstruction narrowing. Incidental finding of degenerative disc changes with ventral spondylosis at C4-5, C5-6 disc levels is noted. FLUOROSCOPY TIME: 1 minute 27 seconds. DOSE AREA PRODUCT: 12 33 uGy-m2 (microgray-meter squared) FL/FL Modified Barium Swallow IMPRESSION: Unremarkable modified barium swallow exam. Correlate with speech therapy report Electronically signed by: Itz Medellin MD 01/05/2025 02:00 PM EDT
--- OUTSIDE RECORDS SUMMARY | 2025-01-05 11:26 | XMS_ITS | Clinical Summary ---
Author Organization [facility] Address [address] [id number] Phone Care Team Providers Care Sole Ruffer Name Role Phone Sallie Peña MD Primary Care Provider + Allergies Active Allergy Reactions Criticality Noted Date Comments Erythromycin Other (see comments) 10/24/2017 Other Reaction(s): abdominal cramps-severe Hydrocodone-Acetaminop hen 01/05/2025 Other Reaction(s): rash Levofloxacin Nausea 10/24/2017 Other Reaction(s): gets really sick, Not available Other 01/05/2025 Other Reaction(s): dust/molds Oxycodone-Acetaminophe n Rash Low 01/05/2025 Oxycodone-Aspirin Rash Low 10/24/2017 Other Reaction(s): Not available Statins 01/05/2025 Other Reaction(s): myalgias tried atorvastatin Sulfa Antibiotics Other (see comments) 02/27/2016 Other Reaction(s): severe rash/hives Substance with sulfonamide structure and antibacterial mechanism of action (substance) Trazodone Nausea 01/05/2025 Active Problems Problem Noted Date Diagnosed Date Full thickness rotator cuff tear 01/05/2025 Type 2 diabetes mellitus 01/05/2025 Chronic kidney disease stage 3 01/05/2025 Chronic depression 01/05/2025 Anal fissure 01/05/2025 Allergic rhinitis 01/05/2025 Hypertensive disorder 01/05/2025 Hypogammaglobulinemia 01/05/2025 Iron deficiency anemia 01/05/2025 Mixed hyperlipidemia 01/05/2025 Obstructive sleep apnea syndrome 01/05/2025 Osteoarthritis of knee 01/05/2025 Psychophysiologic insomnia 01/05/2025 Recurrent urinary tract infection 01/05/2025 Obesity 01/05/2025 Severe obesity 01/05/2025 Stress incontinence 01/05/2025 Osteoarthritis of right knee joint 10/14/2024 Diabetes mellitus 10/21/2012 Social History Tobacco Use Types Packs/Day Years [...] Office Visit [facility] [address] [address] Oli Barros MD [address] [facility] [address] [place] [address] Health Maintenance Due Date Last Done [...] on patient's age to complete this topic Procedures Procedure Name Priority Date/Time Associated Diagnosis Comments RENAL FUNCTION PANEL (EXTERNAL LAB ENTRY) Routine 12/07/2024 from Last 3 Months Results * Renal Function Panel (External Lab) (12/07/2024) Glucose 54 mg/dL BUN 24 mg/dL eGFR 34 BUN/Creatinine Ratio 15 Sodium 142 mEq/L Potassium 5.2 mEq/L Chloride 104 Carbon Dioxide 20 mmol/L Calcium 9.1 mg/dL Creatinine 1.63 mg/dL Anion Gap 18.0 Blood 12/07/2024 us Historical Provider LAB BLOOD ORDERABLES Lucy l Result from Last 3 Months Insurance [facility] [place] [id number] Care Teams Sole Ruffer Relationship Specialty Start Date End Date Sallie Peña MD [address] PCP - General Internal Medicine 12/06/24
--- NOTE | 2025-01-05 15:15 | MHC.SL.IMP ---
Date of Plan of Treatment: 01/05/25 Onset of Symptoms/Illness: 01/06/20 Date Treatment Started: 01/05/25 Admitting Diagnosis: Dysphagia Primary Speech & Language Diagnosis: R13.11 Oral Phase Dysphagia Reason for Today's Visit: 41386 Modified Barium Swallow Study Pre-evaluation Dietary Consistencies: Regular Pre-evaluation Liquid Consistency: Thin Pre-evaluation Medication Administration: Whole with Liquid Medical History: Modified Barium Swallow Study Fluoroscopic Evaluation of Swallowing Function CPT Code 18923 Evaluation Year: 2024 Reason for Study: Patient reporting difficulty swallowing. Referring Physician: Genie Espinal NP Evaluating Clinician: Rosario Ko MA, CCC-BEHAVIORAL HEALTH TECH Study Number: 1 Patient Name: Sally Rodriguez Status: Outpatient, Ambulatory Age: 69 Sex: Female Medical History Medical History (Updated 10/25/24 @ 08:57 by Genie Espinal NP) Asthma Shortness of breath MARY (obstructive sleep apnea) Type 2 diabetes mellitus with unspecified complications Essential hypertension Atherosclerotic cardiovascular disease Surgical History (Updated 01/02/24 @ 12:40 by Jessy Rico NP) S/P cardiac catheterization History of shoulder surgery History of section History of tonsillectomy and adenoidectomy History of lumpectomy of left breast History of cardiac catheterization (~05/10/21) History of four vessel coronary artery bypass graft (~05/17/21) Current (pre-evaluation) Intake/Diet: Route: PO Diet Grade: Regular Liquid Consistencies: Thin Pre-Study Functional Oral Intake Scale (FOIS): 7- Total oral intake with no restrictions Pain: None reported at time of study SUBJECTIVE: Patient is a 69 year old female referred for a modified barium swallow study by Genie Espinal NP from the Pulmonology office. Patient reports difficulty swallowing with both solids and liquids. Patient reports having random choking episodes, which happens on her saliva as well. She also feels food get stuck in her throat and feels like she needs to drink plenty of water before it goes down. Patient does not notice any specific food or liquid causing her more trouble, but rather it seems to occur at random and does not necessarily happen every day, though she has been dealing with this for over 5 years she reports. Patient notes having been diagnosed with reflux. Pertinent medical history includes asthma, former smoking, severe MARY on CPAP, DMII, CAD, and hypogammaglobulinemia. Oral Motor Exam Facial Symmetry: Symmetrical Mouth Occlusion: Normal Oral-Facial Teeth Characteristics: Partially Missing Oral-Facial Teeth Miscellaneous Observation: Patient took out partials, typically eats w/o them Oral-Facial Lip Pucker Description: Normal Oral-Facial Smile (Lips) Description: Normal Oral-Facial Puff Cheeks Description: Normal Tongue Size: Normal Tongue Excursion Description: Normal Tongue Range of Movement Description: Normal Tongue Speed of Movement Description: Normal Tongue Strength of Movement (against opposing pressure): Normal Tongue Movement Characteristics: Normal/Absent Is patient able to manage secretions?: Yes Is patient able to produce volitional cough?: Yes Food and Liquid Trials: Oral Impairment: Lip Closure: 0=No labial escape Oral Impairment: Tongue Control During Bolus Hold: 1=Escape to lateral buccal cavity/floor of mouth (FOM) Oral Impairment: Bolus Preparation/Mastication: 1=Slow prolonged chewing/mashing with complete re-collection Oral Impairment: Bolus Transport/Lingual Motion: 2=Slowed tongue motion Oral Impairment: Oral Residue: 1=Trace residue lining oral structures Oral Impairment:Initiation of Pharyngeal Swallow: 3=Bolus head in pyriforms Pharyngeal Impairment: Soft Palate Elevation: 0=No bolus between soft palate (SP)/pharyngeal wall (PW) Pharyngeal Impairment: Laryngeal Elevation: 1=Partial thyroid cartilage/arytenoids to epiglottic petiole movement Pharyngeal Impairment: Anterior Hyoid Excursion: 1=Partial anterior movement Pharyngeal Impairment: Epiglottic Movement: 0=Complete inversion Pharyngeal Impairment: Laryngeal Vestibular Closure:: 0=Complete: no air/contrast in laryngeal vestibule Pharyngeal Impairment: Pharyngeal Stripping Wave: 0=Present: complete Pharyngeal Impairment: Pharyngeal Contraction: Did not test Pharyngeal Impairment: Pharyngoesophageal Segment Openin=Complete distension and complete duration: no obstruction of flow Pharyngeal Impairment: Tongue Base (TB) Retraction: 0=No contrast between tongue base and posterior pharyngeal wall Pharyngeal Impairment: Pharyngeal Residue: 1=Trace residue within or on pharyngeal structures Pharyngeal Impairment: Esophageal Clearance Upright Position: Did not test Impressions and Recommendations OBJECTIVE: Time-out: performed at 10:45 Evaluation Start: 10:30; Stop: 10:35 Patient Positioning: Standing Viewing Planes: LATERAL ONLY Contrast: MBSImP? Standardized Protocol using commercially prepared, standardized Barium viscosities, including: Varibar? THIN LIQUID (40% w/v, <15 cps) , Varibar? PUDDING (40% w/v, <4915-8097 cps) , 1/2 Shortbread Cookie (1 x1 x.25 ) [facility] ID: [id number] [facility] Results: Lip closure for intraoral bolus containment resulted in no labial escape. Tongue control during bolus hold allowed bolus escape to the lateral buccal cavity/floor of mouth. Bolus preparation and mastication resulted in slow, prolonged chewing/mashing but with complete re-collection. Bolus transport/lingual motion was with slowed tongue motion. Oral residue was a trace, lining oral structures. Initiation of the pharyngeal swallow occurred when the bolus head was in the pyriform sinuses. Soft palate elevation resulted in no bolus between the soft palate and the pharyngeal wall. Laryngeal elevation was decreased, with partial superior movement of the thyroid cartilage/partial approximation of the arytenoids to the epiglottic petiole. Anterior hyoid excursion demonstrated partial anterior movement. Epiglottic movement resulted in complete inversion. Laryngeal vestibular closure was complete, as indicated by no air or contrast within the laryngeal vestibule at the height of the swallow. Pharyngeal stripping wave was present and complete. Pharyngeal contraction could not be determined due to logistical reasons not related to physiologic impairment. Pharyngoesophageal segment opening was completely distended for complete duration with no obstruction of bolus flow. Tongue base retraction allowed no contrast between the retracted tongue base and the posterior pharyngeal wall. Pharyngeal residue was a trace within or on pharyngeal structures. Esophageal clearance in the upright position could not be assessed due to logistical reasons not related to physiologic impairment. Oral Impairment Score: 7 Pharyngeal Impairment Score: 2 (absence of score, component 13) Esophageal Impairment Score: --- (absence of score, component 17) Laryngeal Penetration and Aspiration: Neither penetration nor aspiration was observed in today's study with Cookie, Pudding-thick, Thin. ASSESSMENT: This exam was conducted by the radiologist and the speech pathologist. Patient was standing for lateral view. She was able to feed herself independently and trialed the following consistencies: -Thin liquid (individual cup sips & sequential cup sips) -Puree (mixture applesauce w/ barium pudding) -Regular (Saima Doone cookie coated w/ barium pudding) Good lip closure with no anterior loss of bolus. Some spillage seen to the floor of mouth, but no posterior escape from the oral cavity. Posterior lingual motion was mildly slowed. Mastication was also slowed and prolonged, characterized by piece meal deglutition. Patient cleared the oral cavity with 1-2 swallows. Pharyngeal swallow trigger was delayed, initiated as the bolus head was in the pyriforms. No evidence of nasopharyngeal reflux. Partial laryngeal elevation with complete epiglottic inversion and complete laryngeal vestibular closure. No evidence of aspiration or penetration during this exam. There was trace residue on the tongue base and pooling in the valleculae on sequential trials of liquid, which cleared with secondary swallows. Complete pharyngeal clearance seen on trials of puree and regular solid. Radiologist noted: ?Incidental finding of degenerative disc changes with ventral spondylosis at C4-5, C5-6 disc levels is noted.? Liquid Intake Recommendation: Thin Dietary Recommendations: Regular Medication Administration: Whole with Liquid Please contact the pharmacy regarding appropriate crushable or liquid drug formulations that are available whenever modified delivery is recommended. Compensatory Strategies Recommended: Sitting Upright (90 deg), Small Bites and Sips, Alternate Liquids/Solids, Rate of Ingestion Change Recommendation for Speech Therapy: NA:Typical Evaluation Text Comment: Intake Recommendations: Route: PO Diet Grade: Regular Liquid Consistencies: Thin Post-Study Functional Oral Intake Scale (FOIS): 7- Total oral intake with no restrictions Mildly slow oral phase, with prolonged chewing likely d/t missing dentition, slowed bolus transport, and delayed swallow. Pharyngeal phase was largely unremarkable. No evidence of aspiration or penetration during this exam. Patient reported lingering sensation that food was sticking in her throat after the exam, though there was complete pharyngeal clearance seen on imaging. Suggested Referrals: The patient might benefit from a referral to: Gastroenterology Indication for Referral: Patient reporting globus sensation, MBSS showing complete clearance. Patient also reports history of reflux. Therapy Recommendations: Diet modification and further speech intervention is not warranted at this time. Recommend continue on REGULAR texture solids and THIN liquids, pills WHOLE in LIQUIDS. Discussed strategies w/ patient at the conclusion of this visit: take small bites, chew food well, alternate bites of solids with liquids, and moisten foods with sauces and gravies. Patient may benefit from GI consult given her self-reported history of reflux and complaints of globus sensation. Clinician - Supplemental, Miscellaneous Communication: It is important to note MBSS objective studies are snapshots in time and Patient function might vary with factors such as time of day or concomitant medical conditions. For this reason, the final treatment plan for this patient should rest with their medical care team. Additional recommendations should be considered with the totality of the Patient in mind. Thank for the opportunity to participate in the care of this patient. If you have any questions about the content of this report, please contact the [facility] at [facility]. Education: Education regarding findings from today's study and plans for therapy were provided to Patient only through Verbal Instruction. Understanding was expressed by the Patient only. 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
== END 2025-01-05 10:39 | disposition home or self-care (01) ==
LOC: HO.XRAY 10:38
PROVIDERS: PCP Internal Medicine; Visit Provider Nurse Practitioner Family
DX: R13.10 Dysphagia, unspecified (principal)
CPT/HCPCS: 74230; 92611

== ENCOUNTER 2025-01-19 16:08 | Outpatient (AMB) | payer OTHER, SELFPAY ==
[2025-01-19 16:10] VITALS: BP 122/70; PULSE 66; O2SAT 98; BMI 38.6
--- NOTE | 2025-01-19 16:10 | MHC.OFFVIS ---
Vital Signs 01/19/25 16:10 Height 5 ft 1 in Weight 204 lb 4 oz BMI 38.6 BP 122/70 Blood Pressure Location Rt radial Position Sitting Pulse 66 Pulse Source Pulse Oximeter Pulse Oximetry (%) 98 Oxygen Delivery Method Room Air Intake Visit Reasons: Obstructive sleep apnea Allergies oxycodone (From Percodan) Allergy (Intermediate, Verified 01/19/25 16:13) HIVES erythromycin base Adverse Reaction (Intermediate, Verified 01/19/25 16:13) GI UPSET levofloxacin (From Levaquin) Adverse Reaction (Intermediate, Verified 01/19/25 16:13) GI UPSET Sulfa (Sulfonamide Antibiotics) Adverse Reaction (Intermediate, Verified 01/19/25 16:13) HIVES HPI HPI Obstructive sleep apnea: Details: Sally is a pleasant 69 year old female, less than 10 pack year history, with underlying asthma, severe MARY on CPAP, DMII, CAD s/p CABG 2021, and hypogammaglobulinemia SC weekly Dr Beck. She is prescribed diuretics after xembify infusion, as she develops intermittent BLE edema and orthopnea. Echo 2021 revealed LVEF 58%. She continues to report dyspnea on exertion and intermittent productive cough/chest congestion with yellow greenish sputum, which she states developed after starting Xembify infusion in December. At the last visit, she was treated with Augmentin and prednisone with moderate improvement in cough noting less sputum production now cough more dry. 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 She also reported dysphagia, questioning ongoing microaspiration and presents to review results. She also notes increased sinus congestion and cough may be triggered by post nasal drip. [facility] Medical History Asthma Shortness of breath MARY (obstructive sleep apnea) Type 2 diabetes mellitus with unspecified complications Essential hypertension Atherosclerotic cardiovascular disease Surgical History S/P cardiac catheterization History of shoulder surgery History of section History of tonsillectomy and adenoidectomy History of lumpectomy of left breast History of cardiac catheterization (~05/10/21) History of four vessel coronary artery bypass graft (~05/17/21) Family History Father History of heart bypass surgery Mother History of heart bypass surgery Social History Are you a primary wound care coordinator to a significant other at home: No Do you presently have visiting nurse or other home services: No Patient Tobacco Use Status: Former Tobacco user Review of Systems Const Denies chills, Denies excessive sweating, Denies fever(s), Denies headache(s) and Denies night sweats Eyes Denies dry eyes, Denies irritation and Denies itchy eyes ENT Reports Normal hearing present, Denies headache(s), Denies nasal congestion, Denies nasal discharge and Denies sore throat Card Denies chest pain, Denies chest pain at rest, Denies chest pain with activity, Denies claudication, Reports dyspnea on exertion and Denies paroxysmal nocturnal dyspnea Resp Reports change in phlegm color, Reports cough, Denies hemoptysis, Denies pain on inspiration, Denies pain with cough, Reports dyspnea on exertion, Denies stridor and Denies wheezing Musc Denies myalgias Neuro Reports Normal hearing present and Denies headache(s) Endo Denies excessive sweating Antelmo/Lymph Denies lymphadenopathy Aller/Immun Denies itchy eyes, Denies seasonal rhinorrhea and Denies wheezing Physical Exam Vital Signs: Last Vital Signs Pulse 66 01/19/25 16:10 BP 122/70 01/19/25 16:10 Pulse Ox 98 01/19/25 16:10 Oxygen Delivery Method Room Air 01/19/25 16:10 BMI result Body Mass Index 38.6 Const General: cooperative, healthy appearing, comfortable, no acute distress, well developed and alert Orientation/consciousness: patient oriented x3 Limitations: no limitations HEENT Head: Yes normal to inspection, Yes normocephalic and Yes atraumatic Ears: hearing grossly normal bilaterally and external ears normal Eyes General: appearance normal, both eyes and all related structures Eyelids: Yes eyelids normal Sclerae: sclerae normal EOM: EOMs intact bilaterally Neck Neck: Yes normal visual inspection and Yes no lymphadenopathy Lymphatic: no lymphadenopathy noted Chest Chest palpation & inspection: normal inspection of the chest Resp Effort & Inspection: normal respiratory effort, able to speak in complete sentences, no audible wheezes, no cough, no stridor, not tachypneic, no tripod positioning and no use of accessory muscles Auscultation: diminished lung sounds Cardio Jugular venous distension: no JVD Rate: regular rate Rhythm: regular rhythm Skin Other: warm, dry General skin exam: no rashes or lesions noted Neuro General: patient oriented x3 Cranial nerves: Yes Normal hearing present Cognition (Neuro): normal cognition Gait exam (Neuro): Normal gait present Extrem General: Yes normal to inspection, Yes capillary refill normal, Yes no clubbing, cyanosis or edema and Yes no pedal edema Psych Appearance: grossly normal and well kempt Speech and movement: Normal speech and movement present and Clear speech present Affect: normal affect Attitude: cooperative Thought process: Normal thought process present Thought content: Normal thought content present Insight: Good insight present (Psych) Judgement: Good judgement present (Psych) Assessment & Plan Assessment & Plan (1) Asthma: Code(s): J45.909 - Unspecified asthma, uncomplicated Category: Medical (2) GERD (gastroesophageal reflux disease): Code(s): K21.9 - Gastro-esophageal reflux disease without esophagitis Category: Medical (3) Bronchiectasis: Code(s): J47.9 - Bronchiectasis, uncomplicated Category: Medical (4) Dysphagia: Code(s): R13.10 - Dysphagia, unspecified Category: Medical (5) MARY (obstructive sleep apnea): Code(s): G47.33 - Obstructive sleep apnea (adult) (pediatric) Category: Medical Plan Unremarkable MBSS however did recommen GI consult which she has an upcoming appt scheduled. Prior chest CT which revealed chronic basilar and middle lobe interstitial and alveolar consolidations present on the previous exam are unchanged. Bronchiectasis of the medial segment right middle lobe and posterior left lower lobe also unchanged. Differential diagnosis would include cryptogenic organizing pneumonia. She was treated with Augmentin given bronchitic symptoms and longer course of prednisone due to possibility of AREA DEVELOPMENT CONSULTANT, with some improvement, now noting cough is more dry. She had previously trialed DPI however could not tolerate, willing to reattempt mist inhaler. Will also trial Flonase for nasal congestion. Awaiting final bronchoscopy results. All questions were answered and patient is in agreement of plan. Will follow-up in 4 weeks or sooner if needed. Medications: New fluticasone propion-salmeterol 115-21 mcg/actuation (Advair HFA) 2 puffs inhalation Q12H 12 grams 3RF fluticasone furoate 27.5 mcg/actuation (Flonase Sensimist) into each nostril 2 sprays intranasal DAILY 1 ea 3RF Coding Level of Care Code Est Pt Level 4 (69095) Diagnoses Asthma J45.909 GERD (gastroesophageal reflux disease) K21.9 Bronchiectasis J47.9 Dysphagia R13.10 MARY (obstructive sleep apnea) G47.33
--- OUTSIDE RECORDS SUMMARY | 2025-01-19 17:04 | XMS_ITS | Clinical Summary ---
Author Organization [facility] Address [address] [place] [address] Phone Care Team Providers Care Director Clinical Research Name Role Phone Sallie Peña MD Primary [...] mechanism of action (substance) Trazodone Nausea 01/05/2025 Medications albuterol HFA (Ventolin HFA) 108 (90 Base) MCG/ACT inhaler Acti ve albuterol (2.5 MG/3ML) 0.083% nebulizer solution 5 Active aspirin (ST KATHI) 81 MG EC tablet Active calcium carbonate 1500 (600 Ca) MG tablet 5 Active ciclesonide (Alvesco) 80 MCG/ACT inhaler Acti ve Farxiga 5 MG tablet 4 Active EPINEPHrine (EPIPEN) 0.3 MG/0.3ML injection syringe Ac tive escitalopram (LEXAPRO) 20 MG tablet Active estradiol (ESTRACE) 0.1 MG/GM vaginal cream See Instructions, USE 0.1MG VAGINALLY EVERY FRIDAY AND FRIDAY FOR 30 DAYS. USE WITH ENCLOSED CALIBRATED APPLICATOR DIRECTED. WASH APPLICATOR WITH MILD SOAP/WARM WATER AFTER USE., # 42.5 Gm, 0 Refills, Maintenance, 08/13/24 3:44:00 PM EDT, [facility], 155, cm, 07/06/24 16:25:00 EST, Height, 89.09, kg, 01/16/24 10:26:00 EDT, Dry Weight 5 Active famotidine (PEPCID) 20 MG tablet 5 Active Diflucan 150 MG tablet Take 150 mg by mouth 5 Active gabapentin (NEURONTIN) 300 MG capsule 1 Active immune globulin, human, (Gamunex-C) infusion Active NovoLOG FLEXPEN 100 UNIT/ML injection 5 Active Lantus SoloStar 100 UNIT/ML injection 5 Active LORazepam (ATIVAN) 0.5 MG tablet 1 Active metFORMIN (GLUCOPHAGE) 1000 MG tablet 4 Active olmesartan (BENICAR) 20 MG tablet Take 20 mg by mouth 5 02/09/20 25 Active rosuvastatin (CRESTOR) 10 MG tablet 4 Active Sennosides-Docusa te Sodium (SENOKOT S PO) Take 2 tablets by mouth 1 Active torsemide (DEMADEX) 20 MG tablet 4 Active SODIUM ZIRCONIUM CYCLOSILICATE PO Take by mouth Active metoprolol succinate XL (TOPROL XL) 25 MG 24 hr tablet Active magnesium oxide (MAG-OX) 400 MG tablet Take 400 mg by mouth 1 Active Melatonin-Theanin e 0.5-25 MG chewable tablet Chew 0.5 mg 4 Active Active Problems Problem Noted Date Diagnosed Date [...] right knee joint 10/14/2024 Diabetes mellitus 10/21/2012 Encounters Date Type Department Care Team Description 01/07/2025 11:30 AM EDT Office Visit [facility] [address] [phone] Oli Barros MD Chronic kidney disease stage 3 (HCC) (Primary Dx); Type 2 diabetes mellitus, not otherwise specified (HCC); Hypertension; Hyperkalemia from Last 3 Months Social History Tobacco Use Types Packs/Day Years Used Date Smoking Tobacco: Never Assessed Comments Unknown Sex and Gender Information Value Date Recorded Sex Assigned at Not on file Legal Sex Female 2:58 PM EDT Gender Identity Not on file Sexual Orientation Not on file Last Filed Vital Signs Vital Sign Reading Time Taken Comments Blood Pressure 124/60 01/07/2025 11:51 AM EDT Pulse - - Temperature - - Respiratory Rate - - Oxygen Saturation - - Inhaled Oxygen Concentration - - Weight 92.5 kg (204 lb) 01/07/2025 11:51 AM EDT Height 154.9 cm (5' 1 ) 01/07/2025 11:51 AM EDT Body Mass Index 38.55 01/07/2025 11:51 AM EDT Plan of Treatment Upcoming Encounters Date Type Department Care Team (Late st Contact Info) Description 02/11/2025 10:00 AM EDT Office Visit [facility] [address] [phone] Oli Barros MD [address] [phone] Health Maintenance Due Date Last Done Comments [...] 1.63 mg/dL Anion Gap 18.0 Blood 12/07/2024 [facility] Provider LAB BLOOD ORDERABLES Lucy l Result from Last 3 Months Insurance [facility] [place] [id number] Care Teams Director Clinical Research Relationship Specialty Start Date End Date Sallie Peña MD [address] PCP - General Internal Medicine 12/06/24
== END 2025-01-19 16:27 | disposition home or self-care (01) ==
LOC: HO.HPSW 16:09
PROVIDERS: PCP Internal Medicine; Visit Provider Nurse Practitioner Family
DX: J45.909 Unspecified asthma, uncomplicated (principal); K21.9 Gastro-esophageal reflux disease without esophagitis; J47.9 Bronchiectasis, uncomplicated; R13.10 Dysphagia, unspecified; G47.33 Obstructive sleep apnea (adult) (pediatric)
CPT/HCPCS: 99214

== ENCOUNTER → 2025-01-19 16:08 | Outpatient (BNVA) | payer OTHER, SELFPAY | PROVIDERS: PCP Internal Medicine; Visit Provider Nurse Practitioner Family | DX: J45.909 Unspecified asthma, uncomplicated (principal); J47.9 Bronchiectasis, uncomplicated; G47.33 Obstructive sleep apnea (adult) (pediatric); K21.9 Gastro-esophageal reflux disease without esophagitis; R13.10 Dysphagia, unspecified | CPT/HCPCS: 99212 ==

== ENCOUNTER 2025-03-23 15:29 | Outpatient (AMB) | payer OTHER, SELFPAY ==
[2025-03-23 15:33] VITALS: BP 133/59; PULSE 62; BMI 38.3
--- NOTE | 2025-03-23 15:33 | MHC.OFFVIS ---
Vital Signs 03/23/25 15:33 Height 5 ft 1 in Weight 202 lb 13.204 oz BMI 38.3 BP 133/59 L Blood Pressure Location Lt radial Position Sitting Pulse 62 Intake Visit Reasons: GERD, n/s 12/15 cxl 10/22 Intake Note: Sally presents in the office as a no patient. CC: states that she is taking pepcid but it is not working for her. Depending on what she eats - she will have constipation and diarrhea. Sales Vendor Required: No Allergies oxycodone (From Percodan) Allergy (Intermediate, Verified 03/23/25 15:35) HIVES erythromycin base Adverse Reaction (Intermediate, Verified 03/23/25 15:35) GI UPSET levofloxacin (From Levaquin) Adverse Reaction (Intermediate, Verified 03/23/25 15:35) GI UPSET Sulfa (Sulfonamide Antibiotics) Adverse Reaction (Intermediate, Verified 03/23/25 15:35) HIVES HPI HPI GERD, n/s 12/15 cxl 10/22: Details: Patient is a 69-year-old female with PMH of asthma, MARY, diabetes, hypertension. Sally presents with persistent symptoms of reflux characterized by chest pain and a burning sensation that has been ongoing for several years. The chest pain partially resolves with nitroglycerin, but acid reflux persists despite adherence to a soft, non-acidic diet and avoidance of triggers such as raw vegetables, nuts, spicy foods, and acidic items. She reports minimal symptom improvement following lifestyle modifications. Previous use of famotidine and omeprazole provided only transient relief; efficacy has waned. She denies dysphagia and had a recent unremarkable swallow study. No significant weight changes were reported; appetite remains robust. She notes intermittent nausea, possibly related to polypharmacy, but denies vomiting or abdominal pain related to reflux. Bowel habits are described as normal except for occasional bleeding attributed to an anal fissure, for which she underwent surgery within the past year, with improvement postoperatively. History of intermittent external hemorrhoids, managed effectively with topical agents. Past colonoscopy four years prior revealed two polyps (removed); believes follow-up recommended in five years. Comorbidities include diabetes mellitus (on insulin and metformin), history of open heart surgery (CABG, 2020), and carotid stenosis with interval improvement. She is under cardiology and pulmonology care. She is also on Lexapro for depression, which has altered her taste perception but remains effective and unchanged. Patient denies: fever/chills, vomiting, appetite changes, dysphasia, unintentional wt loss. - family hx as below -denies personal hx of CA -tolerated anesthesia in the past without difficulty. [facility] Medical History Asthma Shortness of breath MARY (obstructive sleep apnea) Type 2 diabetes mellitus with unspecified complications Essential hypertension Atherosclerotic cardiovascular disease Surgical History S/P cardiac catheterization History of shoulder surgery History of section History of tonsillectomy and adenoidectomy History of lumpectomy of left breast History of cardiac catheterization (~05/10/21) History of four vessel coronary artery bypass graft (~05/17/21) Family History Father History of heart bypass surgery Mother History of heart bypass surgery Social History Are you a primary human services care specialist to a significant other at home: No Do you presently have visiting nurse or other home services: No Patient Tobacco Use Status: Former Tobacco user Review of Systems Const Reports as per HPI ENT Reports as per HPI Card Reports as per HPI Resp Reports as per HPI GI Reports as per HPI Reports as per HPI Physical Exam Vital Signs: Last Vital Signs Pulse 62 03/23/25 15:33 BP 133/59 L 03/23/25 15:33 BMI result Body Mass Index 38.3 Const General: healthy appearing, no acute distress and well developed Nutritional Appearance: average body habitus Orientation/consciousness: patient oriented x3 HEENT Head: Yes normal to inspection, Yes normocephalic and Yes atraumatic Face and sinus: Yes normal facial exam Eyes General: appearance normal, both eyes and all related structures Neck Neck: Yes normal visual inspection Resp Effort & Inspection: normal respiratory effort, able to speak in complete sentences, no tracheal deviation and symmetric chest movement Cardio Jugular venous distension: no JVD Neuro General: patient oriented x3 Gait exam (Neuro): Normal gait present Psych Appearance: grossly normal Mental Status: mental status grossly normal Speech and movement: Normal speech and movement present Affect: normal affect Attitude: cooperative Thought process: Normal thought process present Thought content: Normal thought content present Insight: Good insight present (Psych) Judgement: Good judgement present (Psych) Assessment & Plan Assessment & Plan (1) GERD (gastroesophageal reflux disease): Code(s): K21.9 - Gastro-esophageal reflux disease without esophagitis Category: Medical Qualifiers: Esophagitis presence: esophagitis presence not specified Qualified Code(s): K21.9 - Gastro-esophageal reflux disease without esophagitis Plan: Ongoing symptoms despite lifestyle and medication optimization, unimproved with current H2RA/PPI. DDX: Non-cardiac chest pain (reflux vs. esophageal motility disorder, Peptic ulcer disease (unlikely, no epigastric pain or GI bleeding signs), Possible esophageal hypersensitivity Additional Testing: - Upper endoscopy (EGD) to evaluate for mucosal injury, Vargas?s esophagus, or other pathology. Medication Management: - Initiate pantoprazole 20 mg daily, instruct to take on empty stomach 30 min prior to meals. - Discontinue famotidine and omeprazole concurrently. Lifestyle Recommendations: - Maintain soft, non-trigger diet; continue to avoid known aggravators (raw vegetables, nuts, spicy or acidic foods). - Reinforce small frequent meals, head of bed elevation, NPO 3-4 hrs pre-sleep. Follow-Up: - Reassess after upper endoscopy. Early follow-up if worsened or alarm symptoms arise. (2) Colon cancer screening: Code(s): Z12.11 - Encounter for screening for malignant neoplasm of colon Category: Medical Plan: Prior colonoscopy 4 yrs ago (2 polyps removed, 5 yr recall); fissure surgery; current polypharmacy. - Additional Testing: - Colonoscopy (may cancel if prior records confirm >5yr interval appropriate). - Obtain procedural records from previous facility and update if recommendations differ. - Medication Management: - Hold aspirin and all diabetes medications per lola-procedural instructions; nurse to review protocol prior to procedure. - Lifestyle Recommendations: - Review bowel prep instructions (Miralax + Gatorade split-dose). - Emphasize clear fluids only per protocol, exclude red/blue/purple drinks pre-procedure. - Follow-Up: - Schedule for combined EGD and colonoscopy (target end of year/new year). Plan portal communication if colonoscopy not required. Plan Upon review, unable to procedural colonoscopy records. We will proceed with colonoscopy Follow-up after endoscopy or sooner as needed Time: I spent a total of 30 minutes on the date of encounter which includes: Preparing to see the patient (reviewed previous documentation, test results and medical history) Performing a medically appropriate exam and/or evaluation Ordering medications, tests, and procedures Documenting clinical information in the health record Orders: Referrals GI Procedure Notification K21.9 - Gastro-esophageal reflux disease without esophagitis, R13.10 - Dysphagia, unspecified, Z12.11 - Encounter for screening for malignant neoplasm of colon Medications: New bisacodyl Take per colonoscopy instructions 20 mg (4 x 5 mg) PO ONCE 4 tabs 0RF pantoprazole Take one tablet daily on empty stomach, delay eating 30 minutes. 20 mg PO DAILY 90 tabs 1RF polyethylene glycol 3350 (Miralax) per colonoscopy prep instructions 238 grams PO ONCE 238 grams 0RF Coding Level of Care Code New Pt New Pt Level 3 (45484) Patient Type New Diagnoses Gastroesophageal reflux disease, unspecified whether esophagitis present K21.9 Esophagitis presence: esophagitis presence not specified Colon cancer screening Z12.11
--- OUTSIDE RECORDS SUMMARY | 2025-03-23 19:49 | XMS_ITS | Data Portability ---
Author Organization [facility] Address [address] [place] [address] Care Team Providers Care Upper Shaper Name Role Phone JOANNE AHNTH Primary Care [...] but who did not see the patient. [email or web address] Not available 11/25/2024 08:59:59 Plan of Treatment [...] Time Osteoarthri tis of right knee joint [id number] 00 Active 2024 Karime Villegas PA-C [address], [place], [address], [facility] 22:32:00 Problem Notes None recorded. Procedures Surgical History Date Name Laterality Status Provider Name and Address Organization Details Recorded Time 5 Euflexxa Knee Injection completed Theodore Pavon PA-C [address], [place], [address], [facility] 11/25/2024 09:14:24 5 Euflexxa Knee Injection completed Vidhya Kaba PA-C [address], [place], [address], [facility] 11/18/2024 14:38:11 5 Euflexxa Knee Injection completed Mihai Ruff PA-C [address], [place], [address], [facility] 11/11/2024 10:13:21 5 Euflexxa Knee Injection completed Karime Villegas PA-C [address], [place], [address], [facility] 10/28/2024 14:39:11 5 Euflexxa Knee Injection completed Karime Villegas PA-C [address], [place], [address], [facility] 10/21/2024 20:54:56 5 Euflexxa Knee Injection completed Karime Villegas PA-C [address], [place], [address], [facility] 10/14/2024 22:31:52 4 Euflexxa Knee Injection completed Tito Thomson PA-C [address], [place], [address], [facility] 04/09/2024 15:44:58 4 Euflexxa Knee Injection completed Tito Thomson PA-C [address], [place], [address], [facility] 04/02/2024 15:02:36 4 Euflexxa Knee Injection completed Tito Thomson PA-C [address], [place], [address], [facility] 03/26/2024 14:33:38 Imaging Results None recorded. Procedure Notes None recorded. Medical Equipment None Reported. Allergies Allergen ID Allergen Name Allergen Category Reaction Reaction Severity Criticality Documentation Date Start Date Code Code System Note Provider Name and Address Organization Details Recorded Time 857257 Substance with sulfonami de structure and antibacte rial mechanism of action (substanc e) medicatio n Not available Not available Not available 07/28/20232015 91700 8003 SNOMED Aller gyRea ction : 'Skin React ion'; Not Available [facility] 15:27:12 488996 Percodan medicatio n Not available Not available Not available 07/28/20232017 07901 RxNorm Not Available [facility] 4 15:27:12 945486 Levaquin medicatio n Not available Not available Not available 07/28/20232017 17877 2 RxNorm Not Available [facility] 4 15:27:12 843088 erythromy melanie medicatio n Not available Not available Not available 07/28/20232017 4053 RxNorm Not Available [facility] 4 15:27:12 Medications Name Sig Start Date [...] 10/28/2024 154.94 cm KADY SUBRAMANIAN [place] - [facility] 10/28/2024 13:18:23 Date Recorded Body height Body mass index (BMI) Body weight Provider Name and Address Organization Details Last Updated DateTime 11/11/2024 154.94 cm 40.1 kg/m2 59062.58 g LETTY MENON [facility] 11/11/2024 09:44:29 Date Recorded Body height Body mass index (BMI) Body weight Provider Name and Address Organization Details Last Updated DateTime 11/25/2024 154.94 cm 40.1 kg/m2 53086.58 g Luis Alberto Jernigan [facility] 11/25/2024 09:00:20 Social History None recorded. Functional Status None recorded. Mental Status None recorded. Family History Nothing Reported. Medical History No medical history recorded. Gynecological HistoryNo gynecological history recorded. Obstetrics History GPAL:G 0 P 0 0 0 0 Past Encounters Encounter ID Performer Location Encounter Start Date Encounter Closed Date Diagnosis/Indication Diagnosis SNOMED-CT Code Diagnosis ICD10 Code Diagnosis IMO Codes Diagnosis Note [id number] Tito Thomson PA-C [facility] [address] [place] [place] [address] 01/30/2024 13:54:19 01/30/2024 15:08:17 Pain of bilateral knee joints [id number] 82381 M25.561 M25.562 Bilateral osteoarthritis of knees 9663315128 18488 M17.0 [id number] Tito Thomson PA-C [place] [address] [place] [place] [address] 03/26/2024 13:54:31 04/17/2024 15:54:38 Primary gonarthrosis, bilateral 282359243 M17.0 [id number] Tito Thomson PA-C [facility] [address] [place] [address] 04/02/2024 14:50:24 04/19/2024 19:10:10 Primary gonarthrosis, bilateral 108948880 M17.0 [id number] Tito Thomson PA-C [place] [address] [place] [address] 04/09/2024 13:51:18 04/28/2024 14:54:43 Primary gonarthrosis, bilateral 862109558 M17.0 [id number] Tito Thomson PA-C [facility] [address] [place] [address] 08/27/2024 09:47:58 09/07/2024 14:19:51 Pain of right knee joint 7091272698 70696 M25.561 039376 Osteoarthr itis of right knee joint 3022479313 05535 M17.11 [id number] Karime Villegas PA-C [facility] [address] [place] [address] 10/14/2024 12:16:33 10/25/2024 14:58:56 Osteoarthritis of right knee joint 6080276394 93540 M17.11 [id number] [id number] Karime Villegas PA-C [facility] [address] [place] [address] 10/21/2024 12:24:11 10/28/2024 12:58:28 Osteoarthritis of right knee joint 5750956083 91260 M17.11 [id number] Karime Villegas PA-C [facility] [address] [place] [address] 10/28/2024 13:06:52 11/04/2024 10:33:49 Osteoarthritis of right knee joint 6197965628 32779 M17.11 [id number] Mihai Ruff PA-C [facility] [address] [place] [address] 11/11/2024 09:37:09 11/16/2024 15:31:37 Osteoarthritis of left knee joint 9474615341 36933 M17.12 [id number] [id number] Vidhya Kaba PA-C [facility] [place] [address] 11/18/2024 14:07:28 11/30/2024 15:07:39 Osteoarthritis of left knee joint 4277682338 92213 M17.12 [id number] Theodore Pavon PA-C [facility] [address] [place] [address] 11/25/2024 08:56:30 12/07/2024 15:27:15 Osteoarthritis of left knee joint 1080997382 30569 M17.12 Health Concerns Section Related Observation LastModified by Organization Detai ls LastModified Time None Recorded Concern Status LastModified by Organization Details LastModified Time None Recorded Advance Directives Directive None Recorded Payers Insurance Date Sequence Insurance Name Policy Number Policy Bowser Covered Member ID Bowser Member ID Guarantor Name 12/07/2024 1 [facility] - DOS ON OR AFTER 2022 - ONE CARE (MEDICARE REPLACEMENT/ADV ANTAGE - HMO) Sally Rodriguez [id number] Sally Rodriguez Notes Date Note Type Note [...] hours. All questions answered. Karime Villegas PA-C [address] [place] [address] [address], [place], [address], [facility] - [facility] 10/21/2024 20:55:28 10/28/2024 text/html [...] All questions answered. Karime Villegas PA-C [address] [facility] [address], [place], [address], [facility] - [facility] 10/28/2024 14:39:27 OBGyn Episode No OBEpisode recorded.
--- OUTSIDE RECORDS SUMMARY | 2025-03-23 19:50 | XMS_ITS | Clinical Summary ---
Author Organization [facility] Address [address] [place] [address] Phone Care Team Providers Care Postal Service Mail Processor Name Role Phone Sallie Peña MD Primary [...] tablet Take 20 mg by mouth 5 Active rosuvastatin (CRESTOR) 10 MG tablet 4 [...] chewable tablet Chew 0.5 mg 4 Active sodium bicarbonate 650 MG tablet Take 1 tablet (650 mg total) by mouth 1 (one) time each day 90 tablet 3 5 02/14/20 26 Active Active Problems Problem Noted Date Diagnosed [...] Encounters Date Type Department Care Team Description 02/18/2025 9:30 AM EDT [facility] Visit [facility] [address] [address] Oli Barros MD Chronic kidney disease stage 3 (HCC) (Primary Dx); Type 2 diabetes mellitus, not otherwise specified (HCC); Hypertension; Hyperkalemia 01/07/2025 11:30 AM EDT [facility] Visit [facility] [address] [address] Oli Barros MD Chronic kidney disease stage [...] Sign Reading Time Taken Comments Blood Pressure 138/70 02/18/2025 9:31 AM EDT Pulse 67 02/18/2025 9:31 AM EDT Temperature - - Respiratory Rate - - Oxygen Saturation - - Inhaled Oxygen Concentration - - Weight 93.9 kg (207 lb) 02/18/2025 9:31 AM EDT Height 154.9 cm (5' 1 ) 01/07/2025 11:51 AM EDT Body Mass Index 39.11 01/07/2025 11:51 AM EDT Plan of Treatment Upcoming Encounters Date Type Department Care Team (Late st Contact Info) Description 08/17/2025 10:45 AM EDT Office Visit [facility] PKobeCKobe [address] [address] Kena LambKARELY [address] [address] Health Maintenance Due Date Last [...] Procedure Name Priority Date/Time Associated Diagnosis Comments US RENAL LIMITED Routine 02/24/2025 10:2 2 AM EDT Chronic kidney disease stage 3 (HCC) VITAMIN D 25 HYDROXY Routine 01/27/2025 1:46 PM EDT Chronic kidney disease stage 3 (HCC) PTH, INTACT Routine 01/27/2025 1:46 PM EDT Chronic kidney disease stage 3 (HCC) URINE ALBUMIN / CREATININE RATIO Routine 01/27/2025 1:46 PM EDT Chronic kidney disease stage 3 (HCC) PROTEIN ELECTROPHORESIS, SERUM Routine 01/27/2025 1:46 PM EDT Chronic kidney disease stage 3 (HCC) URINALYSIS WITH MICROSCOPIC Routine 01/27/2025 1:46 PM EDT Chronic kidney disease stage 3 (HCC) RENAL FUNCTION PANEL Routine 01/27/2025 1:46 PM EDT Chronic kidney disease stage 3 (HCC) MICROSCOPIC EXAMINATION - DO NOT USE Routine 01/27/2025 1:46 PM EDT from Last 3 Months Results * Ultrasound renal limited (02/24/2025 10:22 AM EDT) Anatomical Region Laterality Modality Abdomen, Pelvis Ultrasound us Oli Barros MD CV VASCULAR PROCEDURES Final Res ult * (ABNORMAL) Microscopic Examination (01/27/2025 1:46 PM EDT) WBC, Urine None seen 0 - 5 /hpf [facility] RBC, Urine 0-2 0 - 2 /hpf [facility] Squamous Epithelial, Urine 0-10 0 - 10 /hpf [facility] Casts None seen None seen /lpf [facility] Bacteria, Urine Moderate(A ) None seen/Few [facility] 01/27/2025 1:46 PM EDT 01/27/2025 Oli Barros MD LAB MICROBIOLOGY - GENERAL ORDER MAX Final Result [facility] [address] [place] [address] * urine albumin / creatinine ratio (01/27/2025 1:46 PM EDT) Creatinine, Ur 163.7 Not Estab. mg/dL [facility] Albumin, Urine 19.6 Not Estab. ug/mL [facility] Albumin/Creatin ine Ratio 12 0 - 29 mg/g creat [facility] Comment: Normal: 0 - 29 Moderately increased: 30 - 300 Severely increased: >300 Urine Urine specimen obtained by clean catch procedure / Unknown 01/27/2025 1:46 PM EDT 01/27/2025 Oli Barros MD LAB URINE ORDERABLES Final Resul t [facility] [address] [place] [address] * Vit D 25 hydroxy (01/27/2025 1:46 PM EDT) Vitamin D, 25-OH, Total 38.1 30.0 - 100.0 ng/mL [facility] Comment: Vitamin D deficiency has been defined by the [place] of Medicine and an Endocrine Society practice guideline as a level of serum 25-OH vitamin D less than 20 ng/mL (1,2). The Endocrine Society went on to further define vitamin D insufficiency as a level between 21 and 29 ng/mL (2). 1. IOM ([place] of Medicine). 2010. Dietary reference intakes for calcium and D. [place]: The National Academies Press. 2. Theresa MF, Too FINNEGAN, Larry PERRY, et al. Evaluation, treatment, and prevention of vitamin D deficiency: an Endocrine Society clinical practice guideline. JCEM. 2010; 96(7):1911-30. Blood Venous blood / Unknown 01/27/2025 1:46 PM EDT 01/27/2025 us Oli Barros MD LAB BLOOD ORDERABLES Final Resul t [facility] [address] [place] [address] * (ABNORMAL) Urinalysis with microscopic exam OUTSIDE OFFICE (01/27/2025 1:46 PM EDT) Specific [place], Urine 1.026 1.005 - 1.030 [facility] pH Urine 5.5 5.0 - 7.5 [facility] [phone] Color, Urine Yellow Yellow [facility] [phone] Appearance Urine Cloudy(A) Clear [facility] WBC Esterase Urine Negative Negative [facility] Protein, Ur Trace Negative/Tra ce [facility] Glucose, Ur Negative Negative [facility] Ketones, Urine Trace(A) Negative [facility] Blood Urine Negative Negative [facility] [phone] Bilirubin Urine Negative Negative [facility] Urobilinogen Urine 0.2 0.2 - 1.0 mg/dL [facility] Nitrite, Urine Negative Negative [facility] Microscopic Examination Comment [facility] Comment:Microscopic follows if indicated. Other Microsc. Observations See below: [facility] Comment:Microscopic was raomn cated and was performed. Urine Urine specimen obtained by clean catch procedure / Unknown 01/27/2025 1:46 PM EDT 01/27/2025 us Oli Barros MD LAB URINE ORDERABLES Final Resul t [facility] [address] [place] [address] * Protein electrophoresis, serum (01/27/2025 1:46 PM EDT) Total Protein 6.4 6.0 - 8.5 g/dL [facility] Albumin 3.7 2.9 - 4.4 g/dL [facility] [phone] Vilos-7-Tqfxjogj 0.2 0.0 - 0.4 g/dL [facility] [phone] Eckyl-8-Rvsdpjsw 0.8 0.4 - 1.0 g/dL [facility] [phone] Beta Globulin 0.9 0.7 - 1.3 g/dL [facility] [phone] Gamma Globulin in Serum 0.8 0.4 - 1.8 g/dL [facility] [phone] M-Justen Serum Not Observed Not Observed g/dL [facility] Globulin, Total 2.7 2.2 - 3.9 g/dL [facility] A/G Ratio 1.4 0.7 - 1.7 [facility] Please note Comment [facility] [phone] Comment: Protein electrophoresis scan will follow via computer, mail, or [employer] delivery. PDF . [facility] Blood Venous blood / Unknown 01/27/2025 1:46 PM EDT 01/27/2025 us Oli Barros MD LAB BLOOD ORDERABLES Final Resul t Performing Organization Address City/[facility]/ZIP Co de Phone Number [facility] [address] [place] [address] * PTH, intact (01/27/2025 1:46 PM EDT) PTH 59 15 - 65 pg/mL [facility] Blood Venous blood / Unknown 01/27/2025 1:46 PM EDT 01/27/2025 us Oli Barros MD LAB BLOOD ORDERABLES Final Resul t Performing Organization Address City/[facility]/ZIP Co de Phone Number [facility] [address] [place] [address] * (ABNORMAL) Renal funtion panel (01/27/2025 1:46 PM EDT) Glucose 141(H) 70 - 99 mg/dL [facility] BUN 26 8 - 27 mg/dL [facility] Creatinine 1.43(H) 0.57 - 1.00 mg/dL [facility] eGFR CKD-EPI CR 2020 40(L) >59 mL/min/1.7 3 [facility] BUN/Creatinine Ratio 18 12 - 28 [facility] Sodium 143 134 - 144 mmol/L [facility] Potassium 5.0 3.5 - 5.2 mmol/L [facility] Chloride 106 96 - 106 mmol/L [facility] Bicarbonate (CO2) 17(L) 20 - 29 mmol/L [facility] Calcium 9.3 8.7 - 10.3 mg/dL [facility] Albumin 4.2 3.9 - 4.9 g/dL [facility] Phosphorus 3.2 3.0 - 4.3 mg/dL [facility] Blood Venous blood / Unknown 01/27/2025 1:46 PM EDT 01/27/2025 us Oli Barros MD LAB BLOOD ORDERABLES Final Resul t [facility] [address] [place] [address] from Last 3 Months Insurance [facility] [place] [address] Care Teams Postal Service Mail Processor Relationship Specialty Start Date End Date Sallie Peña MD [address] PCP - General Internal Medicine 12/06/24
--- OUTSIDE RECORDS SUMMARY | 2025-03-23 19:50 | XMS_ITS | Data Portability ---
Author Organization [email or web address] Address [address] [place] [address] Care Team Providers Care Puppet Developer Name Role Phone [facility] Referring Provider Assessment No assessment recorded. Plan of Treatment Reminders Order Date Submit Date Provider Last Modified By Organization Details Last Modified Time Details Appointments None recorde d. Lab culture , urine 022 04/24/20 HUBER [facility] (Centralized Electronic Ordering - All Locations), Patient Can Go To The Location Of Their Choice, [id number] 10:19:58 Referral None recorde d. Procedures None [...] Go To The Location Of Their Choice, [id number] 04/25/2022 03:12:04 04/24/20 22 04/25/2022 UA W/REF JOLEEN CULTU RE sp. gravity 1.013 (1.002 -1.030 ) Not Available [facility] (Centralized Electronic Ordering - All Locations) Patient Can Go To The Location Of Their Choice, [id number] 04/25/2022 03:12:04 04/24/20 22 04/25/2022 UA W/REF JOLEEN CULTU RE urine pH 5.5 (5.0-8 .0) Not Available [facility] (Centralized Electronic Ordering - All Locations) Patient Can Go To The Location Of Their Choice, [id number] 04/25/2022 03:12:04 11/30/04/25/2022 UA W/REF JOLEEN CULTU RE urine albumin NEGATI VE (neg) Not Available [facility] (Centralized Electronic Ordering - All Locations) Patient Can Go To The Location Of Their Choice, [id number] 04/25/2022 03:12:04 04/24/20 22 04/25/2022 UA W/REF JOLEEN CULTU RE urine glucose NEGATI VE (neg) Not Available [facility] (Centralized Electronic Ordering - All Locations) Patient Can Go To The Location Of Their Choice, [id number] 04/25/2022 03:12:04 04/24/20 22 04/25/2022 UA W/REF JOLEEN CULTU RE urine ketones NEGATI VE (neg) Not Available [facility] (Centralized Electronic Ordering - All Locations) Patient Can Go To The Location Of Their Choice, [id number] 04/25/2022 03:12:04 04/24/20 22 04/25/2022 UA W/REF JOLEEN CULTU RE urine bilirubin NEGATI VE (neg) Not Available [facility] (Centralized Electronic Ordering - All Locations) Patient Can Go To The Location Of Their Choice, [id number] 04/25/2022 03:12:04 04/24/20 22 04/25/2022 UA W/REF JOLEEN CULTU RE urine hemoglobin NEGATI VE (neg) Not Available [facility] (Centralized Electronic Ordering - All Locations) Patient Can Go To The Location Of Their Choice, [id number] 04/25/2022 03:12:04 04/24/20 22 04/25/2022 UA W/REF JOLEEN CULTU RE urine nitrite NEGATI VE (neg) Not Available [facility] (Centralized Electronic Ordering - All Locations) Patient Can Go To The Location Of Their Choice, [id number] 04/25/2022 03:12:04 04/24/20 22 04/25/2022 UA W/REF JOLEEN CULTU RE urine leukocyte NEGATI VE (neg) Not Available [facility] (Centralized Electronic Ordering - All Locations) Patient Can Go To The Location Of Their Choice, [id number] 04/25/2022 03:12:04 04/24/20 22 04/25/2022 UA W/REF JOLEEN CULTU RE urobilinogen NORMAL mg/dL (norm) Not Available [facility] ([facility] Order[facility] - All Locations) Patient Can Go To The Location Of Their Choice, [id number] 04/25/2022 03:12:04 04/24/20 22 04/25/2022 UA W/REF JOLEEN CULTU RE urine WBCs <1 /hpf (0-5) Not Available [facility] (Centralized Electronic Ordering - All Locations) Patient Can Go To The Location Of Their Choice, [facility] [place] 04/25/2022 03:12:04 04/24/20 22 04/25/2022 UA W/REF JOLEEN CULTU RE urine RBCs NONE SEEN /hpf (0-3) Not Available [facility] (Centralized Electronic Ordering - All Locations) Patient Can Go To The Location Of Their Choice, [facility] [place] 04/25/2022 03:12:04 04/24/20 22 04/25/2022 UA W/REF JOLEEN CULTU RE bacteria SLIGHT hpf (neg) abnormal Not Available [facility] (Centralized Electronic Ordering - All Locations) Patient Can Go To The Location Of Their Choice, [facility] [place] 04/25/2022 03:12:04 04/24/20 22 04/25/2022 UA W/REF JOLEEN CULTU RE mucus SLIGHT /lpf Not Available [facility] (Centralized Electronic Ordering - All Locations) Patient Can Go To The Location Of Their Choice, [facility] [place] 04/25/2022 03:12:04 04/24/20 22 04/25/2022 UA W/REF JOLEEN CULTU RE squamous epith 1 /hpf (0-8) Not Available [facility] ([facility] Ordering - All Locations) Patient Can Go To The Location Of Their Choice, [facility] [place] 04/25/2022 03:12:04 04/24/20 22 04/25/2022 UA W/REF JOLEEN CULTU RE hyaline cast 3 lpf (0-2) high Not Available [facility] ([facility] Ordering - All Locations) Patient Can Go To The Location Of Their Choice, [facility] [place] 04/25/2022 03:12:04 04/24/20 22 04/25/2022 UA W/REF JOLEEN CULTU RE clarity CLEAR (clear ) Not Available [facility] (Centralized Electronic Ordering - All Locations) Patient Can Go To The Location Of Their Choice, [facility] [place] 04/25/2022 03:12:04 04/24/20 22 04/25/2022 UA W/REF JOLEEN CULTU RE culture indication CULTUR E NOT INDICA SIMONE Not Available [facility] (Centralized Electronic Ordering - All Locations) Patient Can Go To The Location Of Their Choice, [id number] 04/25/2022 03:12:04 Result Notes None recorded. Medical [...] 2nd Gen Pen Needle 32 gauge x / active Not Available Not Available Not Available [employer] Marguerite 2 Sensor kit active Not Available Not Available N ot Available [employer] Marguerite 2 [place] active Not Available Not Available Not Available Vitals Date Recorded Heart rate Respiratory rate Body temperature Systolic And Diastolic Provider Name and Address Organization Details Last Updated DateTime 04/24/2022 80 /min 18 /min 98.6 [degF] 138/90 mm[Hg] Not Available [facility] - production 13:50:36 Social History None recorded. Functional Status None recorded. Mental Status None recorded. Family History Nothing Reported. Medical History No medical history recorded. Gynecological HistoryNo gynecological history recorded. Obstetrics History GPAL:G 0 P 0 0 0 0 Past Encounters Encounter ID Performer Location Encounter Start Date Encounter Closed Date Diagnosis/Indication Diagnosis SNOMED-CT Code Diagnosis ICD10 Code Diagnosis IMO Codes Diagnosis Note [id number] Kapil Garcia MD Main - [facility] [address] [place] [address] 04/24/2022 13:50:34 04/29/2022 15:28:00 Dysuria [id number] R30.0 Seen by PCP yesterday who said [...] Member ID Bowser Member ID Guarantor Name 10/18/2023 1 [facility] - DOS PRIOR TO 2022 - DUAL ELIGIBLE (MEDICARE REPLACEMENT/ADV ANTAGE - HMO) Sally Rodriguez [id number] Sally Rodriguez 10/18/2023 1 [facility] - DOS ON OR AFTER 2022 - DUAL ELIGIBLE - JAIL OPTIONS AND ONE CARE (MEDICARE REPLACEMENT/ADV ANTAGE - HMO) Sally Rodriguez [id number] Sally Rodriguez Notes Date Note Type Note Provider Name and Address Organization Details Recorded Time 04/24/2022 text/html ROS as noted in the HPI CRC Nursing Assessment: Reason For Request: UTI. [...] .................. .................. .................. .................. .................. .................. ............... [place] [employer] Supervisor Note: Sc12 to address for uti [...] .................. ............... Disposition: Fulfilled Kapil Garcia MD [address] [place] [address],[address] [facility], [place], [address], [employer] 04/24/2022 20:37:39 OBGyn Episode No OBEpisode recorded.
== END 2025-03-23 17:32 | disposition home or self-care (01) ==
LOC: HO.HGI 15:29
PROVIDERS: PCP Internal Medicine; Visit Provider Nurse Practitioner Family
DX: Z01.818 Encounter for other preprocedural examination (principal); Z12.11 Encounter for screening for malignant neoplasm of colon; Z86.0100 Personal history of colon polyps, unspecified; K21.9 Gastro-esophageal reflux disease without esophagitis
CPT/HCPCS: 99203

== ENCOUNTER → 2025-03-23 15:29 | Outpatient (BNVA) | payer OTHER, SELFPAY | PROVIDERS: PCP Internal Medicine; Visit Provider Nurse Practitioner Family | DX: Z12.11 Encounter for screening for malignant neoplasm of colon (principal); K21.9 Gastro-esophageal reflux disease without esophagitis | CPT/HCPCS: 99202 ==

== ENCOUNTER 2025-04-06 13:04 | Outpatient (AMB) | payer OTHER, SELFPAY ==
[2025-04-06 13:10] VITALS: BP 122/44; PULSE 70; O2SAT 97; BMI 39.3
--- NOTE | 2025-04-06 13:10 | A.OFFVIS_ITS ---
Vital Signs 04/06/25 13:10 Height 5 ft 1 in Weight 208 lb 4 oz BMI 39.3 BP 122/44 L Blood Pressure Location Lt brachial Position Sitting Pulse 70 Pulse Source Pulse Oximeter Pulse Oximetry (%) 97 Oxygen Delivery Method Room Air Intake Visit Reasons: Obstructive sleep apnea Allergies oxycodone (From Percodan) Allergy (Intermediate, Verified 04/06/25 13:12) HIVES erythromycin base Adverse Reaction (Intermediate, Verified 04/06/25 13:12) GI UPSET levofloxacin (From Levaquin) Adverse Reaction (Intermediate, Verified 04/06/25 13:12) GI UPSET Sulfa (Sulfonamide Antibiotics) Adverse Reaction (Intermediate, Verified 04/06/25 13:12) HIVES HPI HPI Obstructive sleep apnea: Details: Sally is a pleasant 69 year old female, less than 10 pack year history, with underlying asthma, severe MARY on CPAP, DMII, CAD s/p CABG 2021, and hypogammaglobulinemia SC weekly Dr Beck. She is prescribed diuretics after xembify infusion, as she develops intermittent BLE edema and orthopnea. Patient has been without Xembify for the last infusion 03/16 and is in he process of switching to Hizenta. Echo 2021 revealed LVEF 58%, following with Dr. Mena. We had trialed Advair for asthma management, however developed worsening hoarseness therefore discontinued and not interested in trialing alternatives at this time. She does have Albuterol MDI which she uses PRN however infrequent due to jitteriness and palpitations. 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 Of note, patient also with significant reflux, questioning ongoing microaspiration however MBSS negative, although recommended evaluation with GI and has upcoming endoscopy/colonscopy at [facility] [place] Medical History (Updated 04/06/25 @ 14:13 by Genie Espinal NP) Colon cancer screening Asthma Shortness of breath MARY (obstructive sleep apnea) Type 2 diabetes mellitus with unspecified complications Essential hypertension Atherosclerotic cardiovascular disease Surgical History S/P cardiac catheterization History of shoulder surgery History of section History of tonsillectomy and adenoidectomy History of lumpectomy of left breast History of cardiac catheterization (~05/10/21) History of four vessel coronary artery bypass graft (~05/17/21) Family History Father History of heart bypass surgery Mother History of heart bypass surgery Social History Are you a primary resident care manager to a significant other at home: No Do you presently have visiting nurse or other home services: No Patient Tobacco Use Status: Former Tobacco user Review of Systems Const Denies chills, Denies excessive sweating, Denies fever(s), Denies headache(s) and Denies night sweats Eyes Denies dry eyes, Denies irritation and Denies itchy eyes ENT Reports Normal hearing present, Denies headache(s), Denies nasal congestion and Denies nasal discharge Card Denies chest pain, Denies chest pain at rest, Denies chest pain with activity, Denies claudication, Reports dyspnea on exertion and Denies paroxysmal nocturnal dyspnea Resp Denies change in phlegm color, Denies chest congestion, Reports cough, Denies hemoptysis, Denies pain on inspiration, Denies pain with cough, Reports dyspnea on exertion, Denies stridor and Denies wheezing Musc Denies myalgias Neuro Reports Normal hearing present and Denies headache(s) Endo Denies excessive sweating Antelmo/Lymph Denies lymphadenopathy Aller/Immun Denies itchy eyes, Denies seasonal rhinorrhea and Denies wheezing Physical Exam Vital Signs: Last Vital Signs Pulse 70 04/06/25 13:10 BP 122/44 L 04/06/25 13:10 Pulse Ox 97 04/06/25 13:10 Oxygen Delivery Method Room Air 04/06/25 13:10 BMI result Body Mass Index 39.3 Const General: cooperative, healthy appearing, comfortable, no acute distress, well developed and alert Orientation/consciousness: patient oriented x3 Limitations: no limitations HEENT Head: Yes normal to inspection, Yes normocephalic and Yes atraumatic Ears: hearing grossly normal bilaterally and external ears normal Eyes General: appearance normal, both eyes and all related structures Eyelids: Yes eyelids normal Sclerae: sclerae normal EOM: EOMs intact bilaterally Neck Neck: Yes normal visual inspection and Yes no lymphadenopathy Lymphatic: no lymphadenopathy noted Chest Chest palpation & inspection: normal inspection of the chest Resp Effort & Inspection: normal respiratory effort, able to speak in complete sentences, no audible wheezes, no cough, no stridor, not tachypneic, no tripod positioning and no use of accessory muscles Auscultation: diminished lung sounds Cardio Jugular venous distension: no JVD Rate: regular rate Rhythm: abnormal rhythm Skin Other: warm, dry General skin exam: no rashes or lesions noted Neuro General: patient oriented x3 Cranial nerves: Yes Normal hearing present Cognition (Neuro): normal cognition Gait exam (Neuro): Normal gait present Extrem General: Yes normal to inspection, Yes capillary refill normal, Yes no clubbing, cyanosis or edema and Yes no pedal edema Psych Appearance: grossly normal and well kempt Speech and movement: Normal speech and movement present and Clear speech present Affect: normal affect Attitude: cooperative Thought process: Normal thought process present Thought content: Normal thought content present Insight: Good insight present (Psych) Judgement: Good judgement present (Psych) Assessment & Plan Assessment & Plan (1) Asthma: Code(s): J45.909 - Unspecified asthma, uncomplicated Category: Medical (2) GERD (gastroesophageal reflux disease): Code(s): K21.9 - Gastro-esophageal reflux disease without esophagitis Category: Medical Qualifiers: Esophagitis presence: esophagitis presence not specified Qualified Code(s): K21.9 - Gastro-esophageal reflux disease without esophagitis (3) Bronchiectasis: Code(s): J47.9 - Bronchiectasis, uncomplicated Category: Medical (4) Dysphagia: Code(s): R13.10 - Dysphagia, unspecified Category: Medical (5) MARY (obstructive sleep apnea): Code(s): G47.33 - Obstructive sleep apnea (adult) (pediatric) Category: Medical Plan Unremarkable MBSS however speech therapist recommended GI consult, which patient was recently established with upcoming endoscopy/colonoscopy. Discussed with the patient the negative results of the bronchoscopy and the significance of airway inflammation. We reviewed the potential causes, including GERD and silent aspiration, and the importance of managing these conditions to alleviate respiratory symptoms. She was unaware of medication changes made by GI and will reach out to their office to clarify. The patient was informed about scheduling a repeat chest CT. The patient was advised to increase the use of albuterol as needed for shortness of breath, monitoring for side effects and to consider d aily inhaler in the future, reluctant due to hoarseness. On exam patient with abnormal rhythm, will send for EKG and encouraged patient to follow up with cardiology regarding palpitations. Signs and symptoms which warrant emergent care reviewed. Patient has been using CPAP therapy with 100% compliance and motivated to continue to use. All questions were answered and patient is in agreement of plan. Will follow-up to review results or sooner if needed. Orders: Orders ECG 12 lead EKG 04/06/25 I49.9 - Cardiac arrhythmia, unspecified CT chest wo IV con Today J47.9 - Bronchiectasis, uncomplicated, R05.9 - Cough, unspecified Coding Level of Care Code Est Pt Level 4 (48171) Complex EM visit Add On G2211 Diagnoses Asthma J45.909 Gastroesophageal reflux disease, unspecified whether esophagitis present K21.9 Esophagitis presence: esophagitis presence not specified Bronchiectasis J47.9 Dysphagia R13.10 MARY (obstructive sleep apnea) G47.33
--- OUTSIDE RECORDS SUMMARY | 2025-04-06 15:49 | XMS_ITS | Data Portability ---
Author Organization [facility], [facility] Address [address] [place] [address] Care Team Providers Care Sample Case Porter Name Role Phone ROBERT AHN Primary Care [...] but who did not see the patient. [email or web address] Not available 11/25/2024 08:59:59 Plan of Treatment [...] Time Osteoarthri tis of right knee joint [id number] 00 Active 2024 Karime Villegas PA-C [address], [place], [address], [facility] 22:32:00 Problem Notes None recorded. Procedures Surgical History Date Name Laterality Status Provider Name and Address Organization Details Recorded Time 5 Euflexxa Knee Injection completed Theodore Pavon PA-C [address], [place], [address], [facility] 11/25/2024 09:14:24 5 Euflexxa Knee Injection completed Vidhya Kaba PA-C [address], [place], [address], [facility] 11/18/2024 14:38:11 5 Euflexxa Knee Injection completed Mihai Ruff PA-C [address], [place], [address], [facility] 11/11/2024 10:13:21 5 Euflexxa Knee Injection completed Karime Villegas PA-C [address], [place], [address], [facility] 10/28/2024 14:39:11 5 Euflexxa Knee Injection completed Karime Villegas PA-C [address], [place], [address], [facility] 10/21/2024 20:54:56 5 Euflexxa Knee Injection completed Karime Villegas PA-C [address], [place], [address], [facility] 10/14/2024 22:31:52 4 Euflexxa Knee Injection completed Tito Thomson PA-C [address], [place], [address], [facility] 04/09/2024 15:44:58 4 Euflexxa Knee Injection completed Tito Thomson PA-C [address], [place], [address], [facility] 04/02/2024 15:02:36 4 Euflexxa Knee Injection completed Tito Thomson PA-C [address], [place], [address], [facility] 03/26/2024 14:33:38 Imaging Results None recorded. Procedure Notes None recorded. Medical Equipment None Reported. Allergies Allergen ID Allergen Name Allergen Category Reaction Reaction Severity Criticality Documentation Date Start Date Code Code System Note Provider Name and Address Organization Details Recorded Time 461383 Substance with sulfonami de structure and antibacte rial mechanism of action (substanc e) medicatio n Not available Not available Not available 07/28/20232015 31869 8003 SNOMED Aller gyRea ction : 'Skin React ion'; Not Available [facility] 15:27:12 540958 Percodan medicatio n Not available Not available Not available 07/28/20232017 51177 RxNorm Not Available [facility] 4 15:27:12 948050 Levaquin medicatio n Not available Not available Not available 07/28/20232017 83514 2 RxNorm Not Available [facility] 4 15:27:12 074921 erythromy melanie medicatio n Not available Not available Not available 07/28/20232017 4053 RxNorm Not Available [facility], [facility] 4 15:27:12 Medications Name Sig Start [...] 10/28/2024 154.94 cm KADY SUBRAMANIAN [place] - [facility] 10/28/2024 13:18:23 Date Recorded Body height Body mass index (BMI) Body weight Provider Name and Address Organization Details Last Updated DateTime 11/11/2024 154.94 cm 40.1 kg/m2 34337.58 g LETTY MENON [facility] 11/11/2024 09:44:29 Date Recorded Body height Body mass index (BMI) Body weight Provider Name and Address Organization Details Last Updated DateTime 11/25/2024 154.94 cm 40.1 kg/m2 76107.58 g Luis Alberto Jernigan [facility] 11/25/2024 09:00:20 Social History None recorded. Functional Status None recorded. Mental Status None recorded. Family History Nothing Reported. Medical History No medical history recorded. Gynecological HistoryNo gynecological history recorded. Obstetrics History GPAL:G 0 P 0 0 0 0 Past Encounters Encounter ID Performer Location Encounter Start Date Encounter Closed Date Diagnosis/Indication Diagnosis SNOMED-CT Code Diagnosis ICD10 Code Diagnosis IMO Codes Diagnosis Note [id number] Tito Thomson PA-C [facility] [address] [place] [address] 01/30/2024 13:54:19 01/30/2024 15:08:17 Pain of bilateral knee joints 7534437179 77882 M25.561 M25.562 Bilateral osteoarthritis of knees 0980178593 54082 M17.0 [id number] Tito Thomson PA-C [facility] [address] [place] [address] 03/26/2024 13:54:31 04/17/2024 15:54:38 Primary gonarthrosis, bilateral 135004365 M17.0 [id number] Tito Thomson PA-C [facility] [address] [place] [address] 04/02/2024 14:50:24 04/19/2024 19:10:10 Primary gonarthrosis, bilateral 043332703 M17.0 [id number] Tito Thomson PA-C [facility] [address] [place] [address] 04/09/2024 13:51:18 04/28/2024 14:54:43 Primary gonarthrosis, bilateral 439609088 M17.0 [id number] Tito Thomson PA-C [facility] [address] [place] [address] 08/27/2024 09:47:58 09/07/2024 14:19:51 Pain of right knee joint 4139133814 63137 M25.561 271995 Osteoarthr itis of right knee joint 9102441059 48809 M17.11 [id number] Karime Villegas PA-C [facility] [address] [place] [address] 10/14/2024 12:16:33 10/25/2024 14:58:56 Osteoarthritis of right knee joint 7432908003 57422 M17.11 [id number] Karime Villegas PA-C [facility] [address] [place] [address] 10/21/2024 12:24:11 10/28/2024 12:58:28 Osteoarthritis of right knee joint 6769986788 98891 M17.11 [id number] Karime Villegas PA-C [facility] [address] [place] [address] 10/28/2024 13:06:52 11/04/2024 10:33:49 Osteoarthritis of right knee joint 9426102286 58785 M17.11 [id number] Mihai Ruff PA-C [facility] [address] [place] [address] 11/11/2024 09:37:09 11/16/2024 15:31:37 Osteoarthritis of left knee joint 7900250054 02904 M17.12 [id number] Vidhya Kaba PA-C [facility] [address] [place] [address] 11/18/2024 14:07:28 11/30/2024 15:07:39 Osteoarthritis of left knee joint 7263452065 94142 M17.12 [id number] Theodore Pavon PA-C [facility] [address] [place] [address] 11/25/2024 08:56:30 12/07/2024 15:27:15 Osteoarthritis of left knee joint 6909985830 44592 M17.12 Health Concerns Section Related Observation LastModified by Organization Detai ls LastModified Time None Recorded Concern Status LastModified by Organization Details LastModified Time None Recorded Advance Directives Directive None Recorded Payers Insurance Date Sequence Insurance Name Policy Number Policy Bowser Covered Member ID Bowser Member ID Guarantor Name 12/07/2024 1 [facility] - DOS ON OR AFTER 2022 - ONE CARE (MEDICARE REPLACEMENT/ADV ANTAGE - HMO) Sally Rodriguez [id number] Sally Rodriguez Notes Date Note Type Note [...] hours. All questions answered. Karime Villegas PA-C [address] [place] [address] [address], [place], [address], [facility] - [facility] 10/21/2024 20:55:28 10/28/2024 text/html [...] All questions answered. Karime Villegas PA-C [address] [facility] [address], [place], [address], [facility] - [facility] 10/28/2024 14:39:27 OBGyn Episode No OBEpisode recorded.
--- OUTSIDE RECORDS SUMMARY | 2025-04-06 15:50 | XMS_ITS | Data Portability ---
Author Organization [facility] Address [address] [place] [address] Care Team Providers Care Surgical Rn Name Role Phone [facility] Referring Provider [phone] Assessment No assessment recorded. Plan of Treatment Reminders Order Date Submit Date Provider Last Modified By Organization Details Last Modified Time Details Appointments None recorde d. Lab culture , urine 022 04/24/20 HUBER [facility] (Centralized Electronic Ordering - All Locations), Patient Can Go To The Location Of Their Choice, [id number] 10:19:58 Referral None recorde d. Procedures None [...] Go To The Location Of Their Choice, [id number] 04/25/2022 03:12:04 04/24/20 22 04/25/2022 UA W/REF JOLEEN CULTU RE sp. gravity 1.013 (1.002 -1.030 ) Not Available [facility] (Centralized Electronic Ordering - All Locations) Patient Can Go To The Location Of Their Choice, [id number] 04/25/2022 03:12:04 04/24/20 22 04/25/2022 UA W/REF JOLEEN CULTU RE urine pH 5.5 (5.0-8 .0) Not Available [facility] (Centralized Electronic Ordering - All Locations) Patient Can Go To The Location Of Their Choice, [id number] 04/25/2022 03:12:04 11/30/04/25/2022 UA W/REF JOLEEN CULTU RE urine albumin NEGATI VE (neg) Not Available [facility] (Centralized Electronic Ordering - All Locations) Patient Can Go To The Location Of Their Choice, [id number] 04/25/2022 03:12:04 04/24/20 22 04/25/2022 UA W/REF JOLEEN CULTU RE urine glucose NEGATI VE (neg) Not Available [facility] (Centralized Electronic Ordering - All Locations) Patient Can Go To The Location Of Their Choice, [id number] 04/25/2022 03:12:04 04/24/20 22 04/25/2022 UA W/REF JOLEEN CULTU RE urine ketones NEGATI VE (neg) Not Available [facility] (Centralized Electronic Ordering - All Locations) Patient Can Go To The Location Of Their Choice, [id number] 04/25/2022 03:12:04 04/24/20 22 04/25/2022 UA W/REF JOLEEN CULTU RE urine bilirubin NEGATI VE (neg) Not Available [facility] (Centralized Electronic Ordering - All Locations) Patient Can Go To The Location Of Their Choice, [id number] 04/25/2022 03:12:04 04/24/20 22 04/25/2022 UA W/REF JOLEEN CULTU RE urine hemoglobin NEGATI VE (neg) Not Available [facility] (Centralized Electronic Ordering - All Locations) Patient Can Go To The Location Of Their Choice, [id number] 04/25/2022 03:12:04 04/24/20 22 04/25/2022 UA W/REF JOLEEN CULTU RE urine nitrite NEGATI VE (neg) Not Available [facility] (Centralized Electronic Ordering - All Locations) Patient Can Go To The Location Of Their Choice, [id number] 04/25/2022 03:12:04 04/24/20 22 04/25/2022 UA W/REF JOLEEN CULTU RE urine leukocyte NEGATI VE (neg) Not Available [facility] (Centralized Electronic Ordering - All Locations) Patient Can Go To The Location Of Their Choice, [id number] 04/25/2022 03:12:04 04/24/20 22 04/25/2022 UA W/REF JOLEEN CULTU RE urobilinogen NORMAL mg/dL (norm) Not Available [facility] (Centralized Electronic Ordering - All Locations) Patient Can Go To The Location Of Their Choice, [id number] 04/25/2022 03:12:04 04/24/20 22 04/25/2022 UA W/REF JOLEEN CULTU RE urine WBCs <1 /hpf (0-5) Not Available [facility] (Centralized Electronic Ordering - All Locations) Patient Can Go To The Location Of Their Choice, [facility] 04/25/2022 03:12:04 04/24/20 22 04/25/2022 UA W/REF JOLEEN CULTU RE urine RBCs NONE SEEN /hpf (0-3) Not Available [facility] (Centralized Electronic Ordering - All Locations) Patient Can Go To The Location Of Their Choice, [facility] 04/25/2022 03:12:04 04/24/20 22 04/25/2022 UA W/REF JOLEEN CULTU RE bacteria SLIGHT hpf (neg) abnormal Not Available [facility] (Centralized Electronic Ordering - All Locations) Patient Can Go To The Location Of Their Choice, [facility] 04/25/2022 03:12:04 04/24/20 22 04/25/2022 UA W/REF JOLEEN CULTU RE mucus SLIGHT /lpf Not Available [facility] (Centralized Electronic Ordering - All Locations) Patient Can Go To The Location Of Their Choice, [facility] 04/25/2022 03:12:04 04/24/20 22 04/25/2022 UA W/REF JOLEEN CULTU RE squamous epith 1 /hpf (0-8) Not Available [facility] (Centralized Electronic Ordering - All Locations) Patient Can Go To The Location Of Their Choice, [facility] 04/25/2022 03:12:04 04/24/20 22 04/25/2022 UA W/REF JOLEEN CULTU RE hyaline cast 3 lpf (0-2) high Not Available [facility] (Centralized Electronic Ordering - All Locations) Patient Can Go To The Location Of Their Choice, [facility] 04/25/2022 03:12:04 04/24/20 22 04/25/2022 UA W/REF JOLEEN CULTU RE clarity CLEAR (clear ) Not Available [facility] (Centralized Electronic Ordering - All Locations) Patient Can Go To The Location Of Their Choice, [facility] 04/25/2022 03:12:04 04/24/20 22 04/25/2022 UA W/REF JOLEEN CULTU RE culture indication CULTUR E NOT INDICA SIMONE Not Available [facility] (Centralized Electronic Ordering - All Locations) Patient Can Go To The Location Of Their Choice, [id number] 04/25/2022 03:12:04 Result Notes None recorded. Medical [...] Available N ot Available [employer] Marguerite [address] [place] active Not Available Not Available Not Available [...] [id number] Kapil Garcia MD Main - [facility] [address] [place] [address] 04/24/2022 13:50:34 04/29/2022 15:28:00 Dysuria [id number] R30.0 Seen by PCP yesterday who said [...] Bowser Member ID Guarantor Name 10/18/2023 1 [facility] - DOS PRIOR TO 2022 - DUAL ELIGIBLE (MEDICARE REPLACEMENT/ADV ANTAGE - HMO) Sally Rodriguez [id number] Sally Rodriguez 10/18/2023 1 [facility] - DOS ON OR AFTER 2022 - DUAL ELIGIBLE - RESIDENTIAL OPTIONS AND ONE CARE (MEDICARE REPLACEMENT/ADV ANTAGE - HMO) Sally Rodriguez [id number] Sally Rodriguez Notes Date Note Type Note [...] .................. .................. .................. .................. .................. .................. ............... Road Patcher Note: Sc12 to address for uti symptoms. [...] .................. ............... Disposition: Fulfilled Kapil Garcia MD [address] [place] [address],[address] [facility], [place], [address], [facility] 04/24/2022 20:37:39 OBGyn Episode No OBEpisode recorded.
--- OUTSIDE RECORDS SUMMARY | 2025-04-06 15:50 | XMS_ITS | Clinical Summary ---
Author Organization [facility] Address [address] [facility] [address] [place] [address] Phone Care Team Providers Care Engrosser Name Role Phone Sallie Peña MD Primary [...] Office Visit [facility] [address] [address] Oli Barros MD Chronic kidney disease stage 3 (HCC) (Primary Dx); Type 2 diabetes mellitus, not otherwise specified (HCC); Hypertension; Hyperkalemia 01/07/2025 11:30 AM EDT Office Visit [facility] [address] [address] Oli Barros MD Chronic kidney disease stage [...] Visit [facility] PKobeCKobe [address] [address] Kena LambKARELY [address] [address] Health Maintenance Due Date Last [...] None seen 0 - 5 /hpf [facility] RBC, Urine 0-2 0 - 2 /hpf [facility] Squamous Epithelial, Urine 0-10 0 - 10 /hpf [facility] Casts None seen None seen /lpf [facility] Bacteria, Urine Moderate(A ) None seen/Few [facility] 01/27/2025 1:46 PM EDT 01/27/2025 Oli Barros MD LAB MICROBIOLOGY - GENERAL ORDER MAX Final Result [facility] [address] [place] [address] * urine albumin / creatinine ratio (01/27/2025 1:46 PM EDT) Creatinine, Ur 163.7 Not Estab. mg/dL [facility] Albumin, Urine 19.6 Not Estab. ug/mL [facility] Albumin/Creatin ine Ratio 12 0 - 29 mg/g creat [facility] Comment: Normal: 0 - 29 Moderately increased: 30 - 300 Severely increased: >300 Urine Urine specimen obtained by clean catch procedure / Unknown 01/27/2025 1:46 PM EDT 01/27/2025 Oli Barros MD LAB URINE ORDERABLES Final Resul t [facility] The Training Room (TTR)[facility] [address] [place] [address] * Vit D 25 hydroxy (01/27/2025 1:46 PM EDT) Vitamin D, 25-OH, Total 38.1 30.0 - 100.0 ng/mL [facility] Comment: Vitamin D deficiency has been defined by the Foster of Medicine and an Endocrine Society practice guideline as a level of serum 25-OH vitamin D less than 20 ng/mL (1,2). The Endocrine Society went on to further define vitamin D insufficiency as a level between 21 and 29 ng/mL (2). 1. IOM (Foster of Medicine). 2010. Dietary reference intakes for calcium and D. [place]: The National Academies Press. 2. Theresa MF, Too FINNEGAN, Larry PERRY, et al. Evaluation, treatment, and prevention of vitamin D deficiency: an Endocrine Society clinical practice guideline. JCEM. 2010; 96(7):1911-30. Blood Venous blood / Unknown 01/27/2025 1:46 PM EDT 01/27/2025 us Oli Barros MD LAB BLOOD ORDERABLES Final Resul t [facility] The Training Room (TTR)[facility] [address] [place] [address] * (ABNORMAL) Urinalysis with microscopic exam OUTSIDE OFFICE (01/27/2025 1:46 PM EDT) Specific Apex, Urine 1.026 1.005 - 1.030 [facility] pH Urine 5.5 5.0 - 7.5 [facility] Color, Urine Yellow Yellow [facility] Appearance Urine Cloudy(A) Clear [facility] [place] WBC Esterase Urine Negative Negative [facility] Protein, Ur Trace Negative/Tra ce [facility] [phone] Glucose, Ur Negative Negative [facility] Ketones, Urine Trace(A) Negative [facility] [place] Blood Urine Negative Negative [facility] Bilirubin Urine Negative Negative [facility] [place] Urobilinogen Urine 0.2 0.2 - 1.0 mg/dL [facility] Nitrite, Urine Negative Negative [facility] [place] Microscopic Examination Comment [facility] Comment:Microscopic follows if indicated. Other Microsc. Observations See below: [facility] Comment:Microscopic was ramon cated and was performed. Urine Urine specimen obtained by clean catch procedure / Unknown 01/27/2025 1:46 PM EDT 01/27/2025 us Oli Barros MD LAB URINE ORDERABLES Final Resul t [facility] [address] [place] [address] * Protein electrophoresis, serum (01/27/2025 1:46 PM EDT) Total Protein 6.4 6.0 - 8.5 g/dL [facility] Albumin 3.7 2.9 - 4.4 g/dL [facility] Dozsb-9-Sbyaiexk 0.2 0.0 - 0.4 g/dL [facility] [phone] Aqkxd-0-Sparodkj 0.8 0.4 - 1.0 g/dL [facility] [phone] Beta Globulin 0.9 0.7 - 1.3 g/dL [facility] [phone] Gamma Globulin in Serum 0.8 0.4 - 1.8 g/dL [facility] [phone] M-Justen Serum Not Observed Not Observed g/dL [facility] Globulin, Total 2.7 2.2 - 3.9 g/dL [facility] [phone] A/G Ratio 1.4 0.7 - 1.7 [facility] Please note Comment [facility] [phone] Comment: Protein electrophoresis scan will follow via computer, mail, or vegetable loader delivery. PDF . [facility] Blood Venous blood / Unknown 01/27/2025 1:46 PM EDT 01/27/2025 us Oli Barros MD LAB BLOOD ORDERABLES Final Resul t Performing Organization Address City/[facility]/ZIP Co de Phone Number [facility] [place] [address] [place] [address] * PTH, intact (01/27/2025 1:46 PM EDT) PTH 59 15 - 65 pg/mL [facility] Blood Venous blood / Unknown 01/27/2025 1:46 PM EDT 01/27/2025 us Oli Barros MD LAB BLOOD ORDERABLES Final Resul t Performing Organization Address [facility]/ZIP Co de Phone Number [facility] [place] [address] [place] [address] * (ABNORMAL) Renal funtion panel (01/27/2025 1:46 PM EDT) Glucose 141(H) 70 - 99 mg/dL [facility] BUN 26 8 - 27 mg/dL [facility] Creatinine 1.43(H) 0.57 - 1.00 mg/dL [facility] eGFR CKD-EPI CR 2020 40(L) >59 mL/min/1.7 3 [facility] BUN/Creatinine Ratio 18 12 - 28 [facility] Sodium 143 134 - 144 mmol/L [facility] Potassium 5.0 3.5 - 5.2 mmol/L [facility] Chloride 106 96 - 106 mmol/L [facility] Bicarbonate (CO2) 17(L) 20 - 29 mmol/L [facility] Calcium 9.3 8.7 - 10.3 mg/dL [facility] Albumin 4.2 3.9 - 4.9 g/dL [facility] Phosphorus 3.2 3.0 - 4.3 mg/dL [facility] Blood Venous blood / Unknown 01/27/2025 1:46 PM EDT 01/27/2025 us Oli Barros MD LAB BLOOD ORDERABLES Final Resul t [facility] [address] [place] [address] from Last 3 Months Insurance [employer] [employer] JERI ELLISON [id number] Care Teams Engrosser Relationship Specialty Start Date End Date Sallie Peña MD [address] PCP - General Internal Medicine 12/06/24
== END 2025-04-06 14:16 | disposition home or self-care (01) ==
LOC: HO.HPSW 13:04
PROVIDERS: PCP Internal Medicine; Visit Provider Nurse Practitioner Family
DX: J45.909 Unspecified asthma, uncomplicated (principal); K21.9 Gastro-esophageal reflux disease without esophagitis; J47.9 Bronchiectasis, uncomplicated; R13.10 Dysphagia, unspecified; G47.33 Obstructive sleep apnea (adult) (pediatric)
CPT/HCPCS: 99214; G2211

== ENCOUNTER → 2025-04-06 13:04 | Outpatient (BNVA) | payer OTHER, SELFPAY | PROVIDERS: PCP Internal Medicine; Visit Provider Nurse Practitioner Family | DX: G47.33 Obstructive sleep apnea (adult) (pediatric) (principal); J47.9 Bronchiectasis, uncomplicated; R13.10 Dysphagia, unspecified; K21.9 Gastro-esophageal reflux disease without esophagitis; J45.909 Unspecified asthma, uncomplicated; I49.9 Cardiac arrhythmia, unspecified; Z99.89 Dependence on other enabling machines and devices; R05.9 Cough, unspecified; Z87.891 Personal history of nicotine dependence; Z98.890 Other specified postprocedural states | CPT/HCPCS: 99212 ==

== ENCOUNTER → 2025-04-12 12:14 | Outpatient (REF) | payer OTHER, SELFPAY ==
--- NOTE | 2025-04-12 12:19 | ECG_ITS ---
Test Reason : CARDIAC ARRYTHMIA Blood Pressure : */* mmHG Vent. Rate : 71 BPM Atrial Rate : 71 BPM P-R Int : 148 ms QRS Dur : 90 ms QT Int : 428 ms P-R-T Axes : 72 4 67 degrees QTcB Int : 465 ms Normal sinus rhythm Nonspecific ST abnormality Abnormal ECG No previous ECGs available Referred By: Genie Espinal Electronically Signed By: SAADIA STATON
--- OUTSIDE RECORDS SUMMARY | 2025-04-13 03:13 | XMS_ITS | Data Portability ---
Author Organization [facility], [facility] Address [address] [place] [address] Care Team Providers Care Baker Helper Name Role Phone ROBERT AHN Primary Care [...] but who did not see the patient. [email or web address] Not available 11/25/2024 08:59:59 Plan of Treatment [...] Time Osteoarthri tis of right knee joint [id number] 00 Active 2024 Karime Villegas PA-C [address], [place], [address], [facility] 22:32:00 Problem Notes None recorded. Procedures Surgical History Date Name Laterality Status Provider Name and Address Organization Details Recorded Time 5 Euflexxa Knee Injection completed Theodore Pavon PA-C [address], [place], [address], [facility] 11/25/2024 09:14:24 5 Euflexxa Knee Injection completed Vidhya Kaba PA-C [address], [place], [address], [facility] 11/18/2024 14:38:11 5 Euflexxa Knee Injection completed Mihai Ruff PA-C [address], [place], [address], [facility] 11/11/2024 10:13:21 5 Euflexxa Knee Injection completed Karime Villegas PA-C [address], [place], [address], [facility] 10/28/2024 14:39:11 5 Euflexxa Knee Injection completed Karime Villegas PA-C [address], [place], [address], [facility] 10/21/2024 20:54:56 5 Euflexxa Knee Injection completed Karime Villegas PA-C [address], [place], [address], [facility] 10/14/2024 22:31:52 4 Euflexxa Knee Injection completed Tito Thomson PA-C [address], [place], [address], [facility] 04/09/2024 15:44:58 4 Euflexxa Knee Injection completed Tiot Thomson PA-C [address], [place], [address], [facility] 04/02/2024 15:02:36 4 Euflexxa Knee Injection completed Tito Thomson PA-C [address], [place], [address], [facility] 03/26/2024 14:33:38 Imaging Results None recorded. Procedure Notes None recorded. Medical Equipment None Reported. Allergies Allergen ID Allergen Name Allergen Category Reaction Reaction Severity Criticality Documentation Date Start Date Code Code System Note Provider Name and Address Organization Details Recorded Time 239315 Substance with sulfonami de structure and antibacte rial mechanism of action (substanc e) medicatio n Not available Not available Not available 07/28/20232015 46575 8003 SNOMED Aller gyRea ction : 'Skin React ion'; Not Available [facility] 15:27:12 072458 Percodan medicatio n Not available Not available Not available 07/28/20232017 16798 RxNorm Not Available [facility] 4 15:27:12 001227 Levaquin medicatio n Not available Not available Not available 07/28/20232017 32841 2 RxNorm Not Available [facility] 4 15:27:12 086753 erythromy melanie medicatio n Not available Not available Not available 07/28/20232017 4053 RxNorm Not Available [facility] 4 15:27:12 Medications Name Sig Start [...] 10/28/2024 154.94 cm KADY SUBRAMANIAN [place] - [facility] 10/28/2024 13:18:23 Date Recorded Body height Body mass index (BMI) Body weight Provider Name and Address Organization Details Last Updated DateTime 11/11/2024 154.94 cm 40.1 kg/m2 20955.58 g LETTY MENON [facility] 11/11/2024 09:44:29 Date Recorded Body height Body mass index (BMI) Body weight Provider Name and Address Organization Details Last Updated DateTime 11/25/2024 154.94 cm 40.1 kg/m2 08346.58 g Luis Alberto Jernigan [facility] 11/25/2024 09:00:20 Social History None recorded. Functional Status None recorded. Mental Status None recorded. Family History Nothing Reported. Medical History No medical history recorded. Gynecological HistoryNo gynecological history recorded. Obstetrics History GPAL:G 0 P 0 0 0 0 Past Encounters Encounter ID Performer Location Encounter Start Date Encounter Closed Date Diagnosis/Indication Diagnosis SNOMED-CT Code Diagnosis ICD10 Code Diagnosis IMO Codes Diagnosis Note [id number] Tito Thomson PA-C [facility] [address] [place] [address] 01/30/2024 13:54:19 01/30/2024 15:08:17 Pain of bilateral knee joints 7132358532 96643 M25.561 M25.562 Bilateral osteoarthritis of knees 5371798092 97266 M17.0 [id number] Tito Thomson PA-C [facility] [address] [place] [address] 03/26/2024 13:54:31 04/17/2024 15:54:38 Primary gonarthrosis, bilateral 300439472 M17.0 [id number] Tito Thomson PA-C [facility] [address] [place] [address] 04/02/2024 14:50:24 04/19/2024 19:10:10 Primary gonarthrosis, bilateral 080981445 M17.0 [id number] Tito Thomson PA-C [facility] [address] [place] [address] 04/09/2024 13:51:18 04/28/2024 14:54:43 Primary gonarthrosis, bilateral 594847070 M17.0 [id number] Tito Thomson PA-C [facility] [address] [place] [address] 08/27/2024 09:47:58 09/07/2024 14:19:51 Pain of right knee joint 9710829899 88673 M25.561 [id number] Osteoarthr itis of right knee joint 1783905331 47377 M17.11 [id number] Karime Villegas PA-C [facility] [address] [place] [address] 10/14/2024 12:16:33 10/25/2024 14:58:56 Osteoarthritis of right knee joint 9701975891 88169 M17.11 [id number] Karime Villegas PA-C [facility] [address] [place] [address] 10/21/2024 12:24:11 10/28/2024 12:58:28 Osteoarthritis of right knee joint 8369149931 22671 M17.11 [id number] Karime Villegas PA-C [facility] [address] [place] [address] 10/28/2024 13:06:52 11/04/2024 10:33:49 Osteoarthritis of right knee joint 2514950138 15208 M17.11 [id number] Mihai Ruff PA-C [facility] [address] [place] [address] 11/11/2024 09:37:09 11/16/2024 15:31:37 Osteoarthritis of left knee joint 5138655215 66398 M17.12 [id number] Vidhya Kaba PA-C [facility] [address] [place] [address] 11/18/2024 14:07:28 11/30/2024 15:07:39 Osteoarthritis of left knee joint 6054008561 38945 M17.12 [id number] Theodore Pavon PA-C [facility] [address] [place] [address] 11/25/2024 08:56:30 12/07/2024 15:27:15 Osteoarthritis of left knee joint 4134953770 33087 M17.12 Health Concerns Section Related Observation LastModified by Organization Detai ls LastModified Time None Recorded Concern Status LastModified by Organization Details LastModified Time None Recorded Advance Directives Directive None Recorded Payers Insurance Date Sequence Insurance Name Policy Number Policy Bowser Covered Member ID Bowser Member ID Guarantor Name 12/07/2024 1 [facility] - DOS ON OR AFTER 2022 - ONE CARE (MEDICARE REPLACEMENT/ADV ANTAGE - HMO) Sally Rodriguez [id number] Sally Rodriguez Notes Date Note Type Note [...] hours. All questions answered. Karime Villegas PA-C [address] [place] [address] [address], [place], [address], [facility] - [facility] 10/21/2024 20:55:28 10/28/2024 text/html [...] All questions answered. Karime Villegas PA-C [address] [facility] [address], [place], [address], [facility] - [facility] 10/28/2024 14:39:27 OBGyn Episode No OBEpisode recorded.
--- OUTSIDE RECORDS SUMMARY | 2025-04-13 03:15 | XMS_ITS | Data Portability ---
Author Organization [facility] Address [address] [place] [address] Care Team Providers Care Photoresist Contact Printer Name Role Phone [facility] Referring Provider Assessment No assessment recorded. Plan of Treatment Reminders Order Date Submit Date Provider Last Modified By Organization Details Last Modified Time Details Appointments None recorde d. Lab culture , urine 022 04/24/20 [facility]BER [facility] (Centralized Electronic Ordering - All Locations), Patient Can Go To The Location Of Their Choice, [id number] 10:19:58 Referral None recorde d. Procedures None [...] Go To The Location Of Their Choice, [id number] 04/25/2022 03:12:04 04/24/20 22 04/25/2022 UA W/REF JOLEEN CULTU RE sp. gravity 1.013 (1.002 -1.030 ) Not Available [facility] (Centralized Electronic Ordering - All Locations) Patient Can Go To The Location Of Their Choice, [id number] 04/25/2022 03:12:04 04/24/20 22 04/25/2022 UA W/REF JOLEEN CULTU RE urine pH 5.5 (5.0-8 .0) Not Available [facility] (Centralized Electronic Ordering - All Locations) Patient Can Go To The Location Of Their Choice, [id number] 04/25/2022 03:12:04 11/30/04/25/2022 UA W/REF JOLEEN CULTU RE urine albumin NEGATI VE (neg) Not Available [facility] (Centralized Electronic Ordering - All Locations) Patient Can Go To The Location Of Their Choice, [id number] 04/25/2022 03:12:04 04/24/20 22 04/25/2022 UA W/REF JOLEEN CULTU RE urine glucose NEGATI VE (neg) Not Available [facility] (Centralized Electronic Ordering - All Locations) Patient Can Go To The Location Of Their Choice, [id number] 04/25/2022 03:12:04 04/24/20 22 04/25/2022 UA W/REF JOLEEN CULTU RE urine ketones NEGATI VE (neg) Not Available [facility] (Centralized Electronic Ordering - All Locations) Patient Can Go To The Location Of Their Choice, [id number] 04/25/2022 03:12:04 04/24/20 22 04/25/2022 UA W/REF JOLEEN CULTU RE urine bilirubin NEGATI VE (neg) Not Available [facility] (Centralized Electronic Ordering - All Locations) Patient Can Go To The Location Of Their Choice, [id number] 04/25/2022 03:12:04 04/24/20 22 04/25/2022 UA W/REF JOLEEN CULTU RE urine hemoglobin NEGATI VE (neg) Not Available [facility] (Centralized Electronic Ordering - All Locations) Patient Can Go To The Location Of Their Choice, [id number] 04/25/2022 03:12:04 04/24/20 22 04/25/2022 UA W/REF JOLEEN CULTU RE urine nitrite NEGATI VE (neg) Not Available [facility] (Centralized Electronic Ordering - All Locations) Patient Can Go To The Location Of Their Choice, [id number] 04/25/2022 03:12:04 04/24/20 22 04/25/2022 UA W/REF JOLEEN CULTU RE urine leukocyte NEGATI VE (neg) Not Available [facility] (Centralized Electronic Ordering - All Locations) Patient Can Go To The Location Of Their Choice, [id number] 04/25/2022 03:12:04 04/24/20 22 04/25/2022 UA W/REF JOLEEN CULTU RE urobilinogen NORMAL mg/dL (norm) Not Available [facility] ([facility] Ordering - All Locations) Patient Can Go To The Location Of Their Choice, [id number] 04/25/2022 03:12:04 04/24/20 22 04/25/2022 UA W/REF JOLEEN CULTU RE urine WBCs <1 /hpf (0-5) Not Available [facility] (Centralized Electronic Ordering - All Locations) Patient Can Go To The Location Of Their Choice, [facility] 04/25/2022 03:12:04 04/24/20 22 04/25/2022 UA W/REF JOLEEN CULTU RE urine RBCs NONE SEEN /hpf (0-3) Not Available [facility] (Centralized Electronic Ordering - All Locations) Patient Can Go To The Location Of Their Choice, [facility] 04/25/2022 03:12:04 04/24/20 22 04/25/2022 UA W/REF JOLEEN CULTU RE bacteria SLIGHT hpf (neg) abnormal Not Available [facility] (Centralized Electronic Ordering - All Locations) Patient Can Go To The Location Of Their Choice, [facility] 04/25/2022 03:12:04 04/24/20 22 04/25/2022 UA W/REF JOLEEN CULTU RE mucus SLIGHT /lpf Not Available [facility] (Centralized Electronic Ordering - All Locations) Patient Can Go To The Location Of Their Choice, [facility] 04/25/2022 03:12:04 04/24/20 22 04/25/2022 UA W/REF JOLEEN CULTU RE squamous epith 1 /hpf (0-8) Not Available [facility] ([facility] Ordering - All Locations) Patient Can Go To The Location Of Their Choice, [facility] 04/25/2022 03:12:04 04/24/20 22 04/25/2022 UA W/REF JOLEEN CULTU RE hyaline cast 3 lpf (0-2) high Not Available [facility] (Central[facility] Ordering - All Locations) Patient Can Go To The Location Of Their Choice, [facility] 04/25/2022 03:12:04 04/24/20 22 04/25/2022 UA W/REF JOLEEN CULTU RE clarity CLEAR (clear ) Not Available [facility] (Centralized Electronic Ordering - All Locations) Patient Can Go To The Location Of Their Choice, [facility] 04/25/2022 03:12:04 04/24/20 22 04/25/2022 UA W/REF JOLEEN CULTU RE culture indication CULTUR E NOT INDICA SIMONE Not Available [facility] (Centralized Electronic Ordering - All Locations) Patient Can Go To The Location Of Their Choice, [id number] 04/25/2022 03:12:04 Result Notes None recorded. Medical [...] Available N ot Available [employer] Marguerite [address] [place] active Not Available Not Available Not Available [...] [id number] Kapil Garcia MD Main - instED [address] [place] [address] 04/24/2022 13:50:34 04/29/2022 15:28:00 Dysuria [id number] R30.0 Seen by PCP yesterday who said [...] Bowser Member ID Guarantor Name 10/18/2023 1 [facility] - DOS PRIOR TO 2022 - DUAL ELIGIBLE (MEDICARE REPLACEMENT/ADV ANTAGE - HMO) Sally Rodriguez [id number] Sally Rodriguez 10/18/2023 1 [facility] - DOS ON OR AFTER 2022 - DUAL ELIGIBLE - RESIDENTIAL OPTIONS AND ONE CARE (MEDICARE REPLACEMENT/ADV ANTAGE - HMO) Sally Rodriguez [id number] Salyl Rodriguez Notes Date Note Type Note Provider [...] .................. .................. .................. .................. .................. .................. ............... Pay Station Collector Note: Sc12 to address for uti symptoms. [...] .................. ............... Disposition: Fulfilled Kapil Garcia MD [address] [place] [address],[facility], [place], [address], [facility] 04/24/2022 20:37:39 OBGyn Episode No OBEpisode recorded.
--- OUTSIDE RECORDS SUMMARY | 2025-04-13 03:15 | XMS_ITS | Clinical Summary ---
Author Organization [facility] Address [address] [facility] [address] [place] [address] Phone Care Team Providers Care Wire Puller Name Role Phone Sallie Peña MD Primary [...] Office Visit [facility] [address] [address] Oli Barros MD Chronic kidney disease stage [...] Office Visit [facility]. [address] [place] [phone] Kena Lamb, KARELY [address] [facility] [facility] [address] [place] [address] Health Maintenance Due Date Last Done Comments [...] Anatomical Region Laterality Modality Abdomen, Pelvis Ultrasound Oli Barros MD CV VASCULAR PROCEDURES Final Res ult * (ABNORMAL) Microscopic Examination (01/27/2025 1:46 PM EDT) WBC, Urine None seen 0 - 5 /hpf [facility] RBC, Urine 0-2 0 - 2 /hpf [facility] Squamous Epithelial, Urine 0-10 0 - 10 /hpf [facility] Casts None seen None seen /lpf [facility] Bacteria, Urine Moderate(A ) None seen/Few [facility] 01/27/2025 1:46 PM EDT 01/27/2025 Oli Barros MD LAB MICROBIOLOGY - GENERAL ORDER MAX Final Result [facility] [address] [place] [address] * urine albumin / creatinine ratio (01/27/2025 1:46 PM EDT) Creatinine, Ur 163.7 Not Estab. mg/dL [facility] Albumin, Urine 19.6 Not Estab. ug/mL [facility] Albumin/Creatin ine Ratio 12 0 - 29 mg/g creat [facility] Comment: Normal: 0 - 29 Moderately increased: 30 - 300 Severely increased: >300 Urine Urine specimen obtained by clean catch procedure / Unknown 01/27/2025 1:46 PM EDT 01/27/2025 Oli Barros MD LAB URINE ORDERABLES Final Resul t [employer] [facility] [place] [address] [place] [address] * Vit D 25 hydroxy (01/27/2025 1:46 PM EDT) Vitamin D, 25-OH, Total 38.1 30.0 - 100.0 ng/mL [facility] Comment: Vitamin D deficiency has been defined by the [place] of Medicine and an Endocrine Society practice guideline as a level of serum 25-OH vitamin D less than 20 ng/mL (1,2). The Endocrine Society went on to further define vitamin D insufficiency as a level between 21 and 29 ng/mL (2). 1. IOM ([place] of Medicine). 2010. Dietary reference intakes for calcium and D. [place]: The National Academies Press. 2. Theresa MF, Too FINNEGAN, Larry PERRY, et al. Evaluation, treatment, and prevention of vitamin D deficiency: an Endocrine Society clinical practice guideline. JCEM. 2010; 96(7):1911-30. Blood Venous blood / Unknown 01/27/2025 1:46 PM EDT 01/27/2025 Oli Barros MD LAB BLOOD ORDERABLES Final Resul t [employer] [facility] [place] [address] [place] [address] * (ABNORMAL) Urinalysis with microscopic exam OUTSIDE OFFICE (01/27/2025 1:46 PM EDT) Specific [place], Urine 1.026 1.005 - 1.030 [facility] [phone] pH Urine 5.5 5.0 - 7.5 [facility] [phone] Color, Urine Yellow Yellow [facility] Appearance Urine Cloudy(A) Clear [facility] [place] WBC Esterase Urine Negative Negative [facility] Protein, Ur Trace Negative/Tra ce [facility] Glucose, Ur Negative Negative [facility] Ketones, Urine Trace(A) Negative [facility] [place] Blood Urine Negative Negative [facility] Bilirubin Urine Negative Negative [facility] [place] Urobilinogen Urine 0.2 0.2 - 1.0 mg/dL [facility] Nitrite, Urine Negative Negative [facility] [place] Microscopic Examination Comment [facility] [phone] Comment:Microscopic follows if indicated. Other Microsc. Observations See below: [facility] Comment:Microscopic was ramon cated and was performed. Urine Urine specimen obtained by clean catch procedure / Unknown 01/27/2025 1:46 PM EDT 01/27/2025 us Oli Barros MD LAB URINE ORDERABLES Final Resul t [facility] [address] [place] [address] * Protein electrophoresis, serum (01/27/2025 1:46 PM EDT) Total Protein 6.4 6.0 - 8.5 g/dL [facility] Albumin 3.7 2.9 - 4.4 g/dL [facility] Gqenr-0-Nfqkzflt 0.2 0.0 - 0.4 g/dL [facility] Qghiu-7-Crzmfirk 0.8 0.4 - 1.0 g/dL [facility] Beta Globulin 0.9 0.7 - 1.3 g/dL [facility] Gamma Globulin in Serum 0.8 0.4 - 1.8 g/dL [facility] [phone] M-Justen Serum Not Observed Not Observed g/dL [facility] [phone] Globulin, Total 2.7 2.2 - 3.9 g/dL [facility] [phone] A/G Ratio 1.4 0.7 - 1.7 [facility] Please note Comment [facility] Comment: Protein electrophoresis scan will follow via computer, mail, or manager programs delivery. PDF . [facility] Blood Venous blood / Unknown 01/27/2025 1:46 PM EDT 01/27/2025 us Oli Barros MD LAB BLOOD ORDERABLES Final Resul t Performing Organization Address City/[facility]/ZIP Co de Phone Number [facility] [place] [address] [place] [address] * PTH, intact (01/27/2025 1:46 PM EDT) PTH 59 15 - 65 pg/mL [facility] Blood Venous blood / Unknown 01/27/2025 1:46 PM EDT 01/27/2025 Oli Barros MD LAB BLOOD ORDERABLES Final Resul t Performing Organization Address City/[facility] Co de Phone Number [facility] [place] [address] [place] [address] * (ABNORMAL) Renal funtion panel (01/27/2025 1:46 PM EDT) Glucose 141(H) 70 - 99 mg/dL [facility] BUN 26 8 - 27 mg/dL [facility] Creatinine 1.43(H) 0.57 - 1.00 mg/dL [facility] [place] eGFR CKD-EPI CR 2020 40(L) >59 mL/min/1.7 3 [facility] BUN/Creatinine Ratio 18 12 - 28 [facility] Sodium 143 134 - 144 mmol/L [facility] Potassium 5.0 3.5 - 5.2 mmol/L [facility] Chloride 106 96 - 106 mmol/L [facility] Bicarbonate (CO2) 17(L) 20 - 29 mmol/L [facility] Calcium 9.3 8.7 - 10.3 mg/dL [facility] Albumin 4.2 3.9 - 4.9 g/dL [facility] Phosphorus 3.2 3.0 - 4.3 mg/dL [facility] Blood Venous blood / Unknown 01/27/2025 1:46 PM EDT 01/27/2025 Oli Barros MD LAB BLOOD ORDERABLES Final Resul t [facility] [address] [place] [address] from Last 3 Months Insurance [facility] Care Teams Wire Puller Relationship Specialty Start Date End Date Sallie Peña MD [address] PCP - General Internal Medicine 12/06/24
== END ==
LOC: HO.CARD 12:14
PROVIDERS: PCP Internal Medicine; Visit Provider Nurse Practitioner Family
DX: I49.9 Cardiac arrhythmia, unspecified (principal)
CPT/HCPCS: 93005

== ENCOUNTER → 2025-04-12 12:19 | Outpatient (BNV) | payer OTHER, SELFPAY | PROVIDERS: PCP Internal Medicine; Visit Provider Internal Medicine | DX: R94.31 Abnormal electrocardiogram [ECG] [EKG] (principal); I49.9 Cardiac arrhythmia, unspecified | CPT/HCPCS: 93010 ==

== ENCOUNTER 2025-05-17 14:19 | Outpatient (AMB) | payer OTHER, SELFPAY ==
[2025-05-17 14:22] VITALS: BP 138/78; PULSE 82; BMI 38.3
--- NOTE | 2025-05-17 14:22 | A.OFFVIS_ITS ---
Vital Signs 05/17/25 14:22 Height 5 ft 1 in Weight 202 lb 13.204 oz BMI 38.3 BP 138/78 Blood Pressure Location Lt brachial Position Sitting Pulse 82 Pulse Source Pulse Oximeter Intake Visit Reasons: 6 mth f/up Allergies oxycodone (From Percodan) Allergy (Intermediate, Verified 04/06/25 13:12) HIVES erythromycin base Adverse Reaction (Intermediate, Verified 04/06/25 13:12) GI UPSET levofloxacin (From Levaquin) Adverse Reaction (Intermediate, Verified 04/06/25 13:12) GI UPSET Sulfa (Sulfonamide Antibiotics) Adverse Reaction (Intermediate, Verified 04/06/25 13:12) HIVES Medication List - Last Reconciled 05/17/25 by Brett Mena MD albuterol sulfate 2.5 mg (3 mL) inhalation TID PRN albuterol sulfate 90 mcg/actuation (Ventolin HFA) 2 puffs inhalation Q6H PRN aspirin 81 mg PO DAILY bisacodyl 20 mg (4 x 5 mg) PO ONCE calcium carbonate 600 mg PO BEDTIME cetirizine (Zyrtec) 10 mg PO DAILY cholecalciferol (vitamin D3) (Vitamin D3) 10 mcg PO QPM cyanocobalamin (vitamin B-12) (Vitamin B-12) 1,000 mcg PO DAILY epinephrine 0.3 mg IM ONCE PRN escitalopram oxalate 20 mg PO DAILY estradiol 0.01%(0.1mg/gram) 1 appl vaginal 2XW famotidine 20 mg PO BID gabapentin 600 mg PO BEDTIME gabapentin 100 mg PO TID insulin aspart U-100 (Novolog FlexPen U-100 Insulin aspart) subcut lorazepam 0.5 mg PO BID PRN magnesium oxide 500 mg PO DAILY melatonin 0.5 mg PO BEDTIME PRN meloxicam 15 mg PO DAILY metformin 1,000 mg PO BID metoprolol succinate ER 25 mg PO DAILY nitroglycerin 0.4 mg sublingual DIRECTED PRN pantoprazole 20 mg PO DAILY polyethylene glycol 3350 (Miralax) 238 grams PO ONCE rosuvastatin 10 mg PO BEDTIME torsemide 20 mg PO 2XW PRN triamcinolone acetonide 1 spray intranasal DAILY vitamin B complex 1 cap PO DAILY HPI Comments Details: Sally returns for follow-up. History of coronary disease and bypass surgery. Multiple cardiovascular risk factors including diabetes, hypertension, dyslipidemia. In 2023, she was complaining of some chest discomfort, radiating to the shoulders. That led to another catheterization, but no significant findings. She still gets some off and on chest pains but not clear if it is something cardiac or not. However, she does not have any consistent exertional chest pain. Otherwise, doing okay. [facility] Medical History (Updated 04/06/25 @ 14:13 by Genie Espinal NP) Colon cancer screening Asthma Shortness of breath MARY (obstructive sleep apnea) Type 2 diabetes mellitus with unspecified complications Essential hypertension Atherosclerotic cardiovascular disease Surgical History S/P cardiac catheterization History of shoulder surgery History of section History of tonsillectomy and adenoidectomy History of lumpectomy of left breast History of cardiac catheterization (~05/10/21) History of four vessel coronary artery bypass graft (~05/17/21) Family History Father History of heart bypass surgery Mother History of heart bypass surgery Social History Are you a primary medical care manager to a significant other at home: No Do you presently have visiting nurse or other home services: No Patient Tobacco Use Status: Former Tobacco user Review of Systems Const Denies weakness ENT Denies dizziness Card Denies chest pain, Denies chest pain with activity, Denies syncope, Denies rapid heart rate, Denies pedal edema, Denies edema, Denies leg edema, Denies lightheadedness, Reports palpitations, Denies dyspnea, Denies dyspnea on exertio n and Denies orthopnea Resp Denies cough, Denies dyspnea and Denies dyspnea on exertion GI Denies hematochezia and Denies change in stool character Musc Denies abnormal gait, Denies muscle cramps, Denies muscle weakness, Denies numbness, Denies radiating pain into limb and Denies tingling Neuro Denies abnormal gait, Denies dizziness, Denies syncope, Denies numbness, Denies tingling and Denies weakness Endo Reports palpitations Physical Exam Vital Signs: Last Vital Signs Pulse 82 05/17/25 14:22 BP 138/78 05/17/25 14:22 BMI result Body Mass Index 38.3 Const General: comfortable and no acute distress Orientation/consciousness: patient oriented x3 HEENT Other: Unremarkable Head: Yes normal to inspection Neck Neck: Yes normal visual inspection Chest Chest palpation & inspection: normal inspection of the chest Resp Auscultation: clear to auscultation bilaterally Cardio Palpation: normal PMI Heart sounds: S1 normal heart sound present, S2 normal heart sound present, no gallops, no murmurs and no rubs GI Palpation (GI): Soft to palpation Back/Spine/Pelvis Other: unremarkable Skin General skin exam: no rashes or lesions noted Neuro General: patient oriented x3 Extrem General: Yes normal to inspection Psych Mental Status: mental status grossly normal Assessment & Plan Assessment & Plan (1) Atherosclerotic cardiovascular disease: Code(s): I25.10 - Atherosclerotic heart disease of [place] coronary artery without angina pectoris Category: Medical Plan: Cardiac catheterization reviewed from 2023. Patent LANDERS to LAD, vein grafts to diagonal, PDA, PLV. No interventions performed. Recent EKG shows nonspecific ST-T changes but similar to prior. She remains on aspirin, beta-blockers and statins. May use sublingual nitroglycerin as necessary. Cholesterol is well controlled with LDL of 46 mg/dL. Triglycerides are on the higher side at 183 mg/dL. Could be related to diabetes. Emergency precautions discussed. (2) Bilateral carotid artery stenosis: Code(s): I65.23 - Occlusion and stenosis of bilateral carotid arteries Category: Medical Plan: Her preoperative carotid US showed 50-69% stenosis in the right internal carotid artery and 1-49% stenosis in the left internal carotid artery. In the repeat study from 2022, no significant stenosis bilaterally. (3) Essential hypertension: Code(s): I10 - Essential (primary) hypertension Category: Medical Plan: Stable. No changes. (4) Type 2 diabetes mellitus with unspecified complications: Code(s): E11.8 - Type 2 diabetes mellitus with unspecified complications Category: Medical Plan: She is on insulin, metformin. (5) MARY (obstructive sleep apnea): Code(s): G47.33 - Obstructive sleep apnea (adult) (pediatric) Category: Medical Plan: CPAP. Plan Discussion Notes: I explained that her current symptoms appear stable and no further immediate investigation is necessary. I provided instructions on using nitroglycerin for chest pain and outlined red flag symptoms, such as pain worsening with activity or persisting after three nitro doses, which would warrant calling 911. We agr eed to a follow-up appointment in six months for reassessment. Patient was informed and verbally consented to the use of an ambient scribe for clinic note documentation during this visit. Coding Level of Care Code Est Pt Level 4 (43342) Add On Problem Visit Only Diagnoses Atherosclerotic cardiovascular disease I25.10 Bilateral carotid artery stenosis I65.23 Essential hypertension I10 Type 2 diabetes mellitus with unspecified complications E11.8 MARY (obstructive sleep apnea) G47.33
--- OUTSIDE RECORDS SUMMARY | 2025-05-17 15:36 | XMS_ITS | Clinical Summary ---
Author Organization [facility] Address [address] [facility] [address] [place] [address] Phone Care Team Providers Care Peoplesoft Hrms Developer Name Role Phone Sallie Peña MD Primary [...] Office Visit [facility] [address] [phone] Oli Barros MD Chronic kidney disease stage [...] Office Visit [facility] [address] [place] [phone] Kena LambKARELY [address] [facility] [address] [place] [phone] Health Maintenance Due Date Last Done Comments [...] EDT Chronic kidney disease stage 3 (HCC) from Last 3 Months Results * Ultrasound renal limited (02/24/2025 10:22 AM EDT) Anatomical Region Laterality Modality Abdomen, Pelvis Ultrasound us Oli Barros MD CV VASCULAR PROCEDURES Final Res ult from Last 3 Months Insurance [facility] [place] [id number] Care Teams Peoplesoft Hrms Developer Relationship Specialty Start Date End Date Sallie Peña MD [address] PCP - General Internal Medicine 12/06/24
--- OUTSIDE RECORDS SUMMARY | 2025-05-17 15:36 | XMS_ITS | Data Portability ---
Author Organization [employer] Address [address] [place] [phone] Care Team Providers Care Warranty Manager Name Role Phone [facility] Referring Provider Assessment No assessment recorded. Plan of Treatment Reminders Order Date Submit Date Provider Last Modified By Organization Details Last Modified Time Details Appointments None recorde d. Lab culture , urine 022 04/24/20 [facility] (Centralized Electronic Ordering - All Locations), Patient Can Go To The Location Of Their Choice, [id number] 10:19:58 Referral None recorde d. Procedures None [...] Go To The Location Of Their Choice, [id number] 04/25/2022 03:12:04 04/24/20 22 04/25/2022 UA W/REF JOLEEN CULTU RE sp. gravity 1.013 (1.002 -1.030 ) Not Available [facility] (Centralized Electronic Ordering - All Locations) Patient Can Go To The Location Of Their Choice, [id number] 04/25/2022 03:12:04 04/24/20 22 04/25/2022 UA W/REF JOLEEN CULTU RE urine pH 5.5 (5.0-8 .0) Not Available [facility] (Centralized Electronic Ordering - All Locations) Patient Can Go To The Location Of Their Choice, [id number] 04/25/2022 03:12:04 11/30/04/25/2022 UA W/REF JOLEEN CULTU RE urine albumin NEGATI VE (neg) Not Available [facility] (Centralized Electronic Ordering - All Locations) Patient Can Go To The Location Of Their Choice, [id number] 04/25/2022 03:12:04 04/24/20 22 04/25/2022 UA W/REF JOLEEN CULTU RE urine glucose NEGATI VE (neg) Not Available [facility] (Centralized Electronic Ordering - All Locations) Patient Can Go To The Location Of Their Choice, [id number] 04/25/2022 03:12:04 04/24/20 22 04/25/2022 UA W/REF JOLEEN CULTU RE urine ketones NEGATI VE (neg) Not Available [facility] (Centralized Electronic Ordering - All Locations) Patient Can Go To The Location Of Their Choice, [id number] 04/25/2022 03:12:04 04/24/20 22 04/25/2022 UA W/REF JOLEEN CULTU RE urine bilirubin NEGATI VE (neg) Not Available [facility] (Centralized Electronic Ordering - All Locations) Patient Can Go To The Location Of Their Choice, [id number] 04/25/2022 03:12:04 04/24/20 22 04/25/2022 UA W/REF JOLEEN CULTU RE urine hemoglobin NEGATI VE (neg) Not Available [facility] (Centralized Electronic Ordering - All Locations) Patient Can Go To The Location Of Their Choice, [id number] 04/25/2022 03:12:04 04/24/20 22 04/25/2022 UA W/REF JOLEEN CULTU RE urine nitrite NEGATI VE (neg) Not Available [facility] (Centralized Electronic Ordering - All Locations) Patient Can Go To The Location Of Their Choice, [id number] 04/25/2022 03:12:04 04/24/20 22 04/25/2022 UA W/REF JOLEEN CULTU RE urine leukocyte NEGATI VE (neg) Not Available [facility] (Centralized Electronic Ordering - All Locations) Patient Can Go To The Location Of Their Choice, [id number] 04/25/2022 03:12:04 04/24/20 22 04/25/2022 UA W/REF JOLEEN CULTU RE urobilinogen NORMAL mg/dL (norm) Not Available [facility] ([facility] Ordering - All Locations) Patient Can Go To The Location Of Their Choice, [id number] 04/25/2022 03:12:04 04/24/20 22 04/25/2022 UA W/REF JOLEEN CULTU RE urine WBCs <1 /hpf (0-5) Not Available [facility] (Centralized Electronic Ordering - All Locations) Patient Can Go To The Location Of Their Choice, [facility] 04/25/2022 03:12:04 04/24/20 22 04/25/2022 UA W/REF JOLEEN CULTU RE urine RBCs NONE SEEN /hpf (0-3) Not Available [facility] (Centralized Electronic Ordering - All Locations) Patient Can Go To The Location Of Their Choice, [facility] 04/25/2022 03:12:04 04/24/20 22 04/25/2022 UA W/REF JOLEEN CULTU RE bacteria SLIGHT hpf (neg) abnormal Not Available [facility] (Centralized Electronic Ordering - All Locations) Patient Can Go To The Location Of Their Choice, [facility] 04/25/2022 03:12:04 04/24/20 22 04/25/2022 UA W/REF JOLEEN CULTU RE mucus SLIGHT /lpf Not Available [facility] (Centralized Electronic Ordering - All Locations) Patient Can Go To The Location Of Their Choice, [facility] 04/25/2022 03:12:04 04/24/20 22 04/25/2022 UA W/REF JOLEEN CULTU RE squamous epith 1 /hpf (0-8) Not Available [facility] ([facility] Order[facility] - All Locations) Patient Can Go To The Location Of Their Choice, [facility] 04/25/2022 03:12:04 04/24/20 22 04/25/2022 UA W/REF JOLEEN CULTU RE hyaline cast 3 lpf (0-2) high Not Available [facility] ([facility] Ordering - All Locations) Patient Can Go To The Location Of Their Choice, [facility] 04/25/2022 03:12:04 04/24/20 22 04/25/2022 UA W/REF JOLEEN CULTU RE clarity CLEAR (clear ) Not Available [facility] (Centralized Electronic Ordering - All Locations) Patient Can Go To The Location Of Their Choice, [facility] 04/25/2022 03:12:04 04/24/20 22 04/25/2022 UA W/REF JOLEEN CULTU RE culture indication CULTUR E NOT INDICA SIMONE Not Available [facility] (Centralized Electronic Ordering - All Locations) Patient Can Go To The Location Of Their Choice, [id number] 04/25/2022 03:12:04 Result Notes None recorded. Medical [...] Available N ot Available [employer] Marguerite 2 [place] active Not Available Not Available Not Available [...] [id number] Kapil Garcia MD Main - instED [address] [place] [phone] 04/24/2022 13:50:34 04/29/2022 15:28:00 Dysuria [id number] R30.0 Seen by PCP yesterday who said [...] Bowser Member ID Guarantor Name 10/18/2023 1 [facility] - DOS PRIOR TO 2022 - DUAL ELIGIBLE (MEDICARE REPLACEMENT/ADV ANTAGE - HMO) Sally Rodriguez [id number] Sally Rodriguez 10/18/2023 1 [facility] - DOS ON OR AFTER 2022 - DUAL ELIGIBLE - PRISON OPTIONS AND ONE CARE (MEDICARE REPLACEMENT/ADV ANTAGE - HMO) Sally Rodriguez [id number] Sally Rodriguez Notes Date Note Type Note [...] .................. .................. .................. .................. .................. .................. ............... 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 [...] .................. ............... Disposition: Fulfilled Kapil Garcia MD [address] [place] [address],[facility] [facility], [place], [address], [employer] 04/24/2022 20:37:39 OBGyn Episode No OBEpisode recorded.
== END 2025-05-17 14:44 | disposition home or self-care (01) ==
LOC: HO.HCS 14:19
PROVIDERS: PCP Internal Medicine; Visit Provider Internal Medicine
DX: I25.10 Atherosclerotic heart disease of native coronary artery without angina pectoris (principal); I65.23 Occlusion and stenosis of bilateral carotid arteries; I10 Essential (primary) hypertension; E11.8 Type 2 diabetes mellitus with unspecified complications; G47.33 Obstructive sleep apnea (adult) (pediatric)
CPT/HCPCS: 99214; G2211

== ENCOUNTER → 2025-05-17 14:19 | Outpatient (BNVA) | payer OTHER, SELFPAY | PROVIDERS: PCP Internal Medicine; Visit Provider Internal Medicine | DX: I25.10 Atherosclerotic heart disease of native coronary artery without angina pectoris (principal); I65.23 Occlusion and stenosis of bilateral carotid arteries; I10 Essential (primary) hypertension; E11.8 Type 2 diabetes mellitus with unspecified complications; G47.33 Obstructive sleep apnea (adult) (pediatric); Z79.82 Long term (current) use of aspirin; Z79.899 Other long term (current) drug therapy | CPT/HCPCS: 99212 ==

== ENCOUNTER 2025-05-25 14:40 | Outpatient (REF) | payer OTHER, SELFPAY ==
--- OUTSIDE RECORDS SUMMARY | 2025-05-19 23:59 | XMS_ITS | Continuity of Care Document ---
Author Organization [facility] Address [address] [place] [address]- Care Team Providers Care Mapper Name Role Phone Mariana WILSON, Sallie Espitia Primary Care Physician Encounter [facility] [place] Date(s): 04/19/25 - 05/19/25 [facility]/[address] [address]- Encounter Type: Triage Allergies, Adverse Reactions, Alerts Substance Criticality Severity Reaction Reaction Severity Status erythromycin abdominal cramps-severe Active Tylox rash Active statins 1 myalgias Active traZODone nausea Active sulfa drugs severe rash/hives Active Percodan rash Active Levaquin gets really sic k nausea Active Vicodin rash Active Other Environmental Allergy dust/molds Active 1tried atorvastatin Immunizations Given and Recorded Vaccine Date Status Refusal Reason influenza virus vaccine, inactivated 02/22/25 Give n influenza virus vaccine, inactivated 03/30/24 Johnny rded influenza virus vaccine, inactivated 04/11/23 Give n influenza virus vaccine, inactivated 04/22/22 Give n influenza virus vaccine, inactivated 04/02/21 Give n influenza virus vaccine, inactivated 06/03/20 Johnny rded influenza virus vaccine, inactivated 06/28/19 Give n influenza virus vaccine, inactivated 04/09/18 Give n influenza virus vaccine, inactivated 1 02/12/17 Re corded influenza virus vaccine, inactivated 2 02/19/16 Re corded influenza virus vaccine, inactivated 06/01/15 Give n influenza virus vaccine, inactivated 03/14/14 Give n influenza virus vaccine, inactivated 02/13/13 Give n influenza virus vaccine, inactivated 3 12/26/11 Gi soham influenza virus vaccine, inactivated 4 03/27/11 Gi soham influenza virus vaccine, inactivated 5 03/07/10 Gi soham influenza virus vaccine, inactivated 02/15/09 Give n influenza virus vaccine, inactivated 6 03/28/08 Gi soham influenza virus vaccine, inactivated 7 04/11/07 Gi soham influenza virus vaccine, inactivated 04/02/06 Give n SARS-CoV-2(COVID-19)mRNA-LNP vac([id number]) 03/30/24 Recorded SARS-CoV-2(COVID-19)mRNA-LNP vac([id number]) 04/11/23 Given zoster vaccine, inactivated 04/25/23 Given zoster vaccine, inactivated 10/14/22 Given RSV vaccine, preF A-preF B, recombinant 04/25/23 G iven tetanus/diphtheria/pertussis, acel(Tdap) 12/27/22 Given tetanus/diphtheria/pertussis, acel(Tdap) 8 05/10/13 Given tetanus/diphtheria/pertussis, acel(Tdap) 07/23/06 Recorded pneumococcal 20-valent conjugate vaccine 10/14/22 Given [id number] 12y+ bivalent booster vax 05/11/22 Recorded SARS-CoV-2 mRNA ([id number]) vax 12/11/21 Given pneumococcal 23-valent vaccine 04/16/21 Given pneumococcal 23-valent vaccine 9 03/07/10 Given SARS-CoV-2 (COVID-19) mRNA BNT-162b2 vac 04/02/21 Given SARS-CoV-2 (COVID-19) mRNA-1273 vaccine 09/08/20 R ecorded SARS-CoV-2 (COVID-19) mRNA-1273 vaccine 08/11/20 R ecorded influ virus vac, H1N1, inactive(oldterm) 10 03/29/09 Given [facility] 2Location History: [facility] 3Admin Note: ADMIN BY [facility] 4Admin Note: Give by nurse 5Admin Note: VIS 01/02/10 GIVEN 6Admin Note: VIS 12/17/07 GIVEN admin by Abad José RN 7Admin Note: vis 11/29, 8Result Comment: [05/10/2013] ORDERED BY ARACELI CEE MD 9Admin Note: VIS 02/28/09 GIVEN 10Admin Note: vis 03/03 given Medications Advair HFA 115 mcg / 21 mcg 0 Refills, Maintenance, 02/21/25 5:26:00 PM EDT, Partial fill upon patient request if the prescription is for a schedule II opioid drug. Start Date: 02/21/25 Status: Ordered Medication Dispense Status: Completed Total Allowed Fills: 1 Fills Dispensed: 0 albuterol 0.083% inhalation solution 0 Refills, Maintenance, 02/21/25 5:26:00 PM EDT, Partial fill upon patient request if the prescription is for a schedule II opioid drug. Start Date: 02/21/25 Status: Ordered Medication Dispense Status: Completed Total Allowed Fills: 1 Fills Dispensed: 0 Alvesco 160 mcg/inh inhalation aerosol 2 puffs, Inhalation, 2 times a day, # 6.1 Gm, 0 Refills, Maintenance, 05/06/24 12:20:00 AM EST, Aerosol, Partial fill upon patient request if the prescription is for a schedule II opioid drug. Start Date: 05/06/24 Status: Ordered Medication Dispense Status: Completed Quantity: 6.1 Unit: g Total Allowed Fills: 1 Fills Dispensed: 0 Aspirin Enteric Coated 81 mg oral delayed release tablet 1 tablet, By Mouth, Daily, # 28 tablet, 11 Refills, Maintenance, 12/09/24 2:37:00 PM EDT, [facility], 155, cm, 11/30/24 15:35:00 EDT, Height, 95.2, kg, 11/30/24 15:35:00 EDT, Dry Weight Start Date: 12/09/24 Status: Ordered Medication Dispense Status: Completed Quantity: 28.0 Unit: tablet Total Allowed Fills: 1 Fills Dispensed: 0 bladder control pads bladder control pads, See Instructions, # 120 each, Refills 11, Tot. Refills 11, Maintenance, Dx: incontinence ANNELIESE 99, 11/30/24 4:34:00 PM EDT, Supply Start Date: 11/30/24 Status: Ordered Medication Dispense Status: Completed Quantity: 120.0 Unit: each Total Allowed Fills: 12 Fills Dispensed: 0 calcium carbonate 600 mg oral tablet 1 tablet, By Mouth, Daily, # 28 tablet, 11 Refills, Maintenance, 02/22/25 2:40:00 PM EDT, [facility], 155, cm, 11/30/24 15:35:00 EDT, Height, 95.2, kg, 11/30/24 15:35:00 EDT, Dry Weight Start Date: 02/22/25 Status: Ordered Medication Dispense Status: Completed Quantity: 28.0 Unit: tablet Total Allowed Fills: 12 Fills Dispensed: 0 CPAP Supply Teacher, 09/23/18 9:11:07 AM EDT, Compound Start Date: 09/23/18 Status: Ordered Medication Dispense Status: Completed Total Allowed Fills: 1 Fills Dispensed: 0 cranberry oral capsule 0 Refills, Maintenance, 05/17/21 8:26:00 AM EST, Partial fill upon patient request if the prescription is for a schedule II opioid drug. Start Date: 05/17/21 Status: Ordered Medication Dispense Status: Completed Total Allowed Fills: 1 Fills Dispensed: 0 Docusate/Senna Tablet 2 tablet, By Mouth, Daily, 0 Refills, Maintenance, 05/23/21 9:14:00 AM EST, Tablet, Partial fill upon patient request if the prescription is for a schedule II opioid drug. Start Date: 05/23/21 Status: Ordered Medication Dispense Status: Completed Total Allowed Fills: 1 Fills Dispensed: 0 escitalopram 10 mg oral tablet 1 tablet = 10 mg, By Mouth, Daily in AM, # 90 tablet, 0 Refills, Maintenance, 05/08/21 11:30:00 PM EST, Tablet, Partial fill upon patient request if the prescription is for a schedule II opioid drug. Start Date: 05/08/21 Status: Ordered Medication Dispense Status: Completed Quantity: 90.0 Unit: tablet Total Allowed Fills: 1 Fills Dispensed: 0 estradiol 0.1 mg/g vaginal cream See Instructions, USE 0.1MG VAGINALLY EVERY FRIDAY AND FRIDAY FOR 30 DAYS. USE WITH ENCLOSED CALIBRATED APPLICATOR DIRECTED. WASH APPLICATOR WITH MILD SOAP/WARM WATER AFTER USE., # 42.5 Gm, 3 Refills, Maintenance, 03/28/25 5:32:00 PM EST, [facility], 155, cm, 02/22/25 16:22:00 EDT, Height, 95.4, kg, 02/22/25 16:25:00 EDT, Dry Weight Start Date: 03/28/25 Status: Ordered Medication Dispense Status: Completed Quantity: 42.5 Unit: g Total Allowed Fills: 4 Fills Dispensed: 0 famotidine 20 mg oral tablet 1, tablet, By Mouth, 2 times a day, # 56 tablet, Refills 5, Maintenance, 03/31/25 11:06:00 AM EST, Route to Pharmacy Electronically, [facility], 155, cm, 02/22/25 16:22:00 EDT, Height, 95.4, kg, 02/22/25 16:25:00 EDT, Dry Weight Start Date: 03/31/25 Status: Ordered Medication Dispense Status: Completed Quantity: 56.0 Unit: tablet Total Allowed Fills: 1 Fills Dispensed: 0 Freestyle 2 plus sensors Freestyle 2 plus sensors, See Instructions, # 2 each, Refills 11, Tot. Refills 11, Maintenance, Dx:DM 2 ANNELIESE 99 check 4 times a day, 12/02/24 4:05:00 PM EDT, Supply, 155, cm, 11/30/24 15:35:00 EDT, Height, 95.2, kg, 11/30/24 15:35:00 EDT, Dry Weight Start Date: 12/02/24 Status: Ordered Medication Dispense Status: Completed Quantity: 2.0 Unit: each Total Allowed Fills: 12 Fills Dispensed: 0 FREESTYLE 28G LANCETS FREESTYLE 28G LANCETS, See Instructions, # 100 Unknown, 0 Refills, Maintenance, USE TO TEST BLOOD SUGAR 4 TIMES DAILY., 02/09/25 5:35:00 PM EDT, 155, cm, 11/30/24 15:35:00 EDT, Height, 95.2, kg, 11/30/24 15:35:00 EDT, Dry Weight Start Date: 02/09/25 Status: Ordered Medication Dispense Status: Completed Quantity: 100.0 Unit: Unknown Total Allowed Fills: 1 Fills Dispensed: 0 FREESTYLE 28G LANCETS FREESTYLE 28G LANCETS, See Instructions, # 100 Unknown, 11 Refills, Maintenance, USE TO TEST BLOOD SUGAR 4 TIMES DAILY., 03/03/25 12:26:00 PM EDT, 155, cm, 02/22/25 16:22:00 EDT, Height, 95.4, kg, 02/22/25 16:25:00 EDT, Dry Weight Start Date: 03/03/25 Status: Ordered Medication Dispense Status: Completed Quantity: 100.0 Unit: Unknown Total Allowed Fills: 1 Fills Dispensed: 0 FREESTYLE SLIM 2 SENSOR FREESTYLE SLIM 2 SENSOR, See Instructions, # 2 kit, 4 Refills, Maintenance, USE TO TEST BLOOD SUGAR WITH SLIM READER 6 TIMES DAILY., 10/01/24 4:15:00 PM EDT, 155, cm, 08/24/24 8:02:00 EDT, Height, 89.09, kg, 01/16/24 10:26:00 EDT, Dry Weight Start Date: 10/01/24 Status: Ordered Medication Dispense Status: Completed Quantity: 2.0 Unit: kit Total Allowed Fills: 1 Fills Dispensed: 0 Freestyle Lite 2 plus reader Freestyle Lite 2 plus reader, See Instructions, # 1 each, Refills 0, Tot. Refills 0, Maintenance, Dx: DM 2 ANNELIESE 99 check 4 times a day, 12/02/24 4:03:00 PM EDT, Supply, 155, cm, 11/30/24 15:35:00 EDT, Height, 95.2, kg, 11/30/24 15:35:00 EDT, Dry Weight Start Date: 12/02/24 Status: Ordered Medication Dispense Status: Completed Quantity: 1.0 Unit: each Total Allowed Fills: 1 Fills Dispensed: 0 gabapentin 300 mg oral capsule 300 mg, 1, capsule, By Mouth, 3 times a day, 300 QAM, 300 at lunch, 300 dinner 900 QHS, # 90 capsule, Refills 5, Maintenance, 05/10/21 7:41:00 AM EST, Partial fill upon patient request if the prescription is for a schedule II opioid drug. Start Date: 05/10/21 Status: Ordered Medication Dispense Status: Completed Quantity: 90.0 Unit: capsule Total Allowed Fills: 1 Fills Dispensed: 0 GNP ULTICARE PEN NDL 32G 4MM GNP ULTICARE PEN NDL 32G 4MM, See Instructions, # 100 Unknown, 5 Refills, Maintenance, USE 3 TIMES DAILY WITH NOVOLOG AND ONCE DAILY WITH LANTUS, 02/03/25 10:04:00 AM EDT, 155, cm, 11/30/24 15:35:00 EDT, Height, 95.2, kg, 11/30/24 15:35:00 EDT, Dry Weight Start Date: 02/03/25 Status: Ordered Medication Dispense Status: Completed Quantity: 100.0 Unit: Unknown Total Allowed Fills: 1 Fills Dispensed: 0 Insulin Aspart FlexPen 100 units/mL injectable solution See Instructions, INJECT 10UNITS SUBCUTANEOUSLY 3 TIMES A DAY WITH CARB CONTAINING MEALS., # 15 mL,0 Refills, Maintenance, 04/19/25 2:46:00 PM EST, [facility], 155, cm, 02/22/25 16:22:00 EDT, Height, 95.4, kg, 02/22/25 16:25:00 EDT, Dry Weight Start Date: 04/19/25 Status: Ordered Medication Dispense Status: Completed Quantity: 15.0 Unit: mL Total Allowed Fills: 1 Fills Dispensed: 0 ipratropium nasal 21 mcg/inh spray 0 Refills, Maintenance, 01/27/24 11:19:00 AM EDT, Partial fill upon patient request if the prescription is for a schedule II opioid drug. Start Date: 01/27/24 Status: Ordered Medication Dispense Status: Completed Total Allowed Fills: 1 Fills Dispensed: 0 Lantus Solostar Pen 100 units/mL subcutaneous solution See Instructions, INJECT 12 UNITS SUBCUTANEOUS DAILY., # 15 mL, 3 Refills, Maintenance, 02/22/25 5:12:00 PM EDT, [facility], 155, cm, 02/22/25 16:22:00 EDT, Height, 95.4, kg, 02/22/25 16:25:00 EDT, Dry Weight Start Date: 02/22/25 Status: Ordered Medication Dispense Status: Completed Quantity: 15.0 Unit: mL Total Allowed Fills: 4 Fills Dispensed: 0 Lokelma 5 g oral powder for reconstitution See Instructions, TAKE 1 PACK/PACKET BY MOUTH DAILY FOR 28 DAYS. DO NOT TAKE WITHIN 2 HOURS OF OTHER MEDICATIONS., # 28 pack/packet, 0 Refills, Maintenance, 02/04/25 7:38:00 AM EDT, [facility], 155, cm, 11/30/24 15:35:00 EDT, Height, 95.2, kg, 11/30/24 15:35:00 EDT, Dry Weight Start Date: 02/04/25 Status: Ordered Medication Dispense Status: Completed Quantity: 28.0 Unit: pack/packet Total Allowed Fills: 1 Fills Dispensed: 0 LORazepam 0.5 mg oral tablet 2 tablet = 1 mg, By Mouth, 3 times a day, 1mg TID PRN per anxiety -- per Galina Cortes (psych), 0 Refills, Maintenance, 03/02/21 9:45:00 AM EDT, Tablet, Partial fill upon patient request if the prescription is for a schedule II opioid drug. Start Date: 03/02/21 Status: Ordered Medication Dispense Status: Completed Total Allowed Fills: 1 Fills Dispensed: 0 magnesium oxide 400 mg oral tablet 1 tablet = 400 mg, By Mouth, Daily, 0 Refills, Maintenance, 05/17/21 8:26:00 AM EST, Partial fill upon patient request if the prescription is for a schedule II opioid drug. Start Date: 05/17/21 Status: Ordered Medication Dispense Status: Completed Total Allowed Fills: 1 Fills Dispensed: 0 melatonin 0.5 mg oral tablet, chewable 1 tablet = 0.5 mg, Chew, Daily at bedtime, # 60 tablet, 0 Refills, Maintenance, 06/27/23 11:06:00 AM EST, Chew Tablet, [facility], Partial fill upon patient request if the prescription is for a schedule II opioid drug., 154, cm, 06/27/23 10:31:00 EST, Height, 89.18, kg, 10/14/22 12:56:00 EDT, Dry Weight Start Date: 06/27/23 Status: Ordered Medication Dispense Status: Completed Quantity: 60.0 Unit: tablet Total Allowed Fills: 1 Fills Dispensed: 0 meloxicam 15 mg oral tablet 1 tablet, By Mouth, Daily, PRN NEEDED FOR MODERATE PAIN, # 30 tablet, 5 Refills, Maintenance, 02/04/25 7:32:00 AM EDT, [facility], 155, cm, 11/30/24 15:35:00 EDT, Height, 95.2, kg, 11/30/24 15:35:00 EDT, Dry Weight Start Date: 02/04/25 Status: Ordered Medication Dispense Status: Completed Quantity: 30.0 Unit: tablet Total Allowed Fills: 6 Fills Dispensed: 0 metFORMIN 1000 mg oral tablet 1 tablet, By Mouth, 2 times a day, # 180 tablet, 3 Refills, Maintenance, 02/22/25 2:42:00 PM EDT, [facility], 155, cm, 11/30/24 15:35:00 EDT, Height, 95.2, kg, 11/30/24 15:35:00 EDT, Dry Weight Start Date: 02/22/25 Stop Date: 02/17/26 Status: Ordered Medication Dispense Status: Completed Quantity: 180.0 Unit: tablet Total Allowed Fills: 4 Fills Dispensed: 0 Metoprolol Succinate ER 25 mg oral tablet, extended release 1, tablet, By Mouth, Daily, # 28 tablet, Refills 5, Tot. Refills 5, Maintenance, 02/22/25 2:42:00 PMEDT, Route to Pharmacy Electronically, [facility], 155, cm, 11/30/24 15:35:00 EDT, Height, 95.2, kg, 11/30/24 15:35:00 EDT, Dry Weight Start Date: 02/22/25 Status: Ordered Medication Dispense Status: Completed Quantity: 28.0 Unit: tablet Total Allowed Fills: 6 Fills Dispensed: 0 primo precision test strips primo precision test strips, See Instructions, # 50 each, Refills 11, Tot. Refills 11, Maintenance, DX: DM II check 4 times a day ANNELIESE 99, 03/28/25 5:32:00 PM EST, Supply, 155, cm, 02/22/25 16:22:00 EDT,Height, 95.4, kg, 02/22/25 16:25:00 EDT, Dry Weight Start Date: 03/28/25 Status: Ordered Medication Dispense Status: Completed Quantity: 50.0 Unit: each Total Allowed Fills: 12 Fills Dispensed: 0 nitroglycerin 0.4 mg sublingual tablet 1 tablet, Sublingual, Every 5 minutes, PRN NEEDED FOR CHEST PAIN, NOT TO EXCEED 3 DOSES IN 15MINUTES. IF PAIN PERSISTS, SEEK MEDICALL ATTENTION., # 30 tablet, 0 Refills, Maintenance, 06/25/24 2:00:00 PM EST, [facility], 155, cm, 05/12/24 15:51:00 EST, Height, 89.09, kg, 01/16/24 10:26:00 EDT, Dry Weight Start Date: 06/25/24 Status: Ordered Medication Dispense Status: Completed Quantity: 30.0 Unit: tablet Total Allowed Fills: 1 Fills Dispensed: 0 olmesartan 20 mg oral tablet 1 tablet, By Mouth, Daily, # 60 tablet, 3 Refills, Maintenance, 02/04/25 7:33:00 AM EDT, [facility], 155, cm, 11/30/24 15:35:00 EDT, Height, 95.2, kg, 11/30/24 15:35:00 EDT, Dry Weight Start Date: 02/04/25 Stop Date: 10/02/25 Status: Ordered Medication Dispense Status: Completed Quantity: 60.0 Unit: tablet Total Allowed Fills: 4 Fills Dispensed: 0 Pantoprazole 0 Refills, Maintenance, 03/31/25 5:04:00 PM EST Start Date: 03/31/25 Status: Ordered Medication Dispense Status: Completed Total Allowed Fills: 1 Fills Dispensed: 0 Rollator walker Rollator walker, See Instructions, # 1 each, Refills 0, Tot. Refills 0, Maintenance, Dx: Fall risk Z91.81 ANNELIESE 99, 02/22/25 5:19:00 PM EDT, Supply Start Date: 02/22/25 Status: Ordered Medication Dispense Status: Completed Quantity: 1.0 Unit: each Total Allowed Fills: 1 Fills Dispensed: 0 rosuvastatin 10 mg oral tablet 1 tablet, By Mouth, Daily, # 90 tablet, 3 Refills, Maintenance, 02/22/25 2:43:00 PM EDT, [facility], 155, cm, 11/30/24 15:35:00 EDT, Height, 95.2, kg, 11/30/24 15:35:00 EDT, Dry Weight Start Date: 02/22/25 Stop Date: 02/17/26 Status: Ordered Medication Dispense Status: Completed Quantity: 90.0 Unit: tablet Total Allowed Fills: 4 Fills Dispensed: 0 sodium bicarbonate 650 mg oral tablet 3 tablet = 1,950 mg, By Mouth, Daily, # 60 tablet, 0 Refills, Maintenance, 02/21/25 5:26:00 PM EDT, Tablet, Partial fill upon patient request if the prescription is for a schedule II opioid drug. Start Date: 02/21/25 Status: Ordered Medication Dispense Status: Completed Quantity: 60.0 Unit: tablet Total Allowed Fills: 1 Fills Dispensed: 0 torsemide 20 mg oral tablet 0 Refills, Maintenance, 10/09/23 3:08:00 PM EDT, Partial fill upon patient request if the prescription is for a schedule II opioid drug. Start Date: 10/09/23 Status: Ordered Medication Dispense Status: Completed Total Allowed Fills: 1 Fills Dispensed: 0 Vitamin D3 oral tablet 1 tablet, By Mouth, Daily, # 30 tablet, 11 Refills, Maintenance, 02/22/25 2:41:00 PM EDT, [facility], 155, cm, 11/30/24 15:35:00 EDT, Height, 95.2, kg, 11/30/24 15:35:00 EDT, Dry Weight Start Date: 02/22/25 Status: Ordered Medication Dispense Status: Completed Quantity: 30.0 Unit: tablet Total Allowed Fills: 12 Fills Dispensed: 0 Xembify 20% subcutaneous solution 0 Refills, Maintenance, 11/07/24 1:08:00 PM EDT, Partial fill upon patient request if the prescription is for a schedule II opioid drug. Start Date: 11/07/24 Status: Ordered Medication Dispense Status: Completed Total Allowed Fills: 1 Fills Dispensed: 0 Problem List Condition Confirmation Course Effective Dates Status Health Status Informant Allergic rhinitis Confirmed Active Anal fissure Confirmed Active Chronic depression Confirmed Active CKD (chronic kidney disease), stage III Confirmed Active Diabetes mellitus with neuropathy Confirmed 10/21/12 Active Complete tear or right rotator cuff Confirmed Active Stress incontinence Confirmed Active HTN (hypertension) Confirmed Active Hypogammaglobulinemia Confirmed Active Iron deficiency anemia Confirmed Active Mixed Hyperlipidemia Confirmed Active Obesity (BMI 30.0-34.9) Confirmed Active MARY (obstructive sleep apnea) Confirmed Active OA (osteoarthritis) of knee Confirmed Active *[id number] 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 Smoking Status Former smoker, quit more than 30 days ago entered on: 12/27/22 Sex Sex Representation Female (finding) Patient Care team information Care Team Personnel Name: Sallie Peña MD Position: [facility] Physician - Primary Care Member Role: PCP Address: [address] [place] [address] Telecom: Name: Linnette Sumner RN Position: [facility] RN Member Role: Primary Care Nurse Name: Jovani Ayers RN Position: [facility] RN Member Role: Primary Care Nurse Name: Deepthi Prieto RN Position: [facility] RN Member Role: Primary Care Nurse Name: hSari Ashton RN Position: [facility] RN Member Role: Primary Care Nurse Care Team Related Persons Name: PK GOODMAN Insurance Providers Guarantor name: NAN MAXINE [facility] Plan Information #: 1 Payer: [facility] [employer] Payer Identifier: NA Member Number: [id number] Group Number: [id number] Subscriber Identifier: NA Relationship to Subscriber: self Coverage Type: Medicare Managed Care (Includes Medicare Advantage Plans) Coverage Verification Date: NA Telecom: NA Address:
--- NOTE | ~2025-05-25 | CT_ITS ---
EXAMINATION: CT CHEST WITHOUT IV CONTRAST INDICATION: J47.9 - Bronchiectasis, uncomplicated COMPARISON: Comparison is made to prior examinations dated 09/16/2024 and 07/02/2024. TECHNIQUE: Helical CT scan of the chest was performed without intravenous contrast. Coronal and sagittal reformatted images were generated and reviewed. This CT exam was performed with one or more of the following dose reduction techniques: automated exposure control, adjustment of the mA and/or kV according to patient size, use of iterative reconstruction technique. DLP: 190 mGy-cm CHEST: THYROID: The thyroid is unremarkable. LUNGS: Again seen is extensive pulmonary scarring at the lung bases. There is mild bronchiectasis in the right middle lobe, lingula, and both lower lobes, similar to the prior study. No new focal airspace opacity is seen. There are 3 mm nodules in the right upper lobe (series 5, image 35) and in the left upper lobe (series 5, image 29). These were not definitely present on the prior studies. MEDIASTINUM: There is no mediastinal lymphadenopathy. AMANDEEP: Evaluation of the hilar regions is limited by lack of intravenous contrast material. CARDIOVASCULATURE: The heart is normal in size. There is no pericardial effusion. The thoracic aorta is normal in caliber. DEGREE OF CORONARY CALCIFICATION: severe status post CABG PLEURA: There is no pleural effusion. No pneumothorax. MAIN AIRWAYS: The mainstem bronchi and proximal branches are patent. AXILLA: There is no axillary lymphadenopathy. BONES AND SOFT TISSUES: There is degenerative disc disease of the spine. UPPER ABDOMEN: The visualized portions of the liver, spleen, and adrenals have an unremarkable unenhanced appearance. CT/CT chest wo IV con IMPRESSION: 1. Stable extensive pulmonary scarring at the lung bases with associated bronchiectasis. 2. New 3 mm nodules in both upper lobes. Continued follow-up is recommended. Electronically signed by: Bill Land MD 05/25/2025 03:37 PM [facility]
--- OUTSIDE RECORDS SUMMARY | 2025-05-25 15:45 | XMS_ITS | Data Portability ---
Author Organization [employer], [facility] Address [address] [place] [phone] Care Team Providers Care Fur Machine Operator Name Role Phone [facility] Referring Provider [phone] Assessment No assessment recorded. Plan of Treatment Reminders Order Date Submit Date Provider Last Modified By Organization Details Last Modified Time Details Appointments None recorde d. Lab culture , urine 022 04/24/20 HUBER [facility] (Centralized Electronic Ordering - All Locations), Patient Can Go To The Location Of Their Choice, [id number] 10:19:58 Referral None recorde d. Procedures None [...] Go To The Location Of Their Choice, [id number] 04/25/2022 03:12:04 04/24/20 22 04/25/2022 UA W/REF JOLEEN CULTU RE sp. gravity 1.013 (1.002 -1.030 ) Not Available [facility] (Centralized Electronic Ordering - All Locations) Patient Can Go To The Location Of Their Choice, [id number] 04/25/2022 03:12:04 04/24/20 22 04/25/2022 UA W/REF JOLEEN CULTU RE urine pH 5.5 (5.0-8 .0) Not Available [facility] (Centralized Electronic Ordering - All Locations) Patient Can Go To The Location Of Their Choice, [id number] 04/25/2022 03:12:04 11/30/04/25/2022 UA W/REF JOLEEN CULTU RE urine albumin NEGATI VE (neg) Not Available [facility] (Centralized Electronic Ordering - All Locations) Patient Can Go To The Location Of Their Choice, [id number] 04/25/2022 03:12:04 04/24/20 22 04/25/2022 UA W/REF JOLEEN CULTU RE urine glucose NEGATI VE (neg) Not Available [facility] (Centralized Electronic Ordering - All Locations) Patient Can Go To The Location Of Their Choice, [id number] 04/25/2022 03:12:04 04/24/20 22 04/25/2022 UA W/REF JOLEEN CULTU RE urine ketones NEGATI VE (neg) Not Available [facility] (Centralized Electronic Ordering - All Locations) Patient Can Go To The Location Of Their Choice, [id number] 04/25/2022 03:12:04 04/24/20 22 04/25/2022 UA W/REF JOLEEN CULTU RE urine bilirubin NEGATI VE (neg) Not Available [facility] (Centralized Electronic Ordering - All Locations) Patient Can Go To The Location Of Their Choice, [id number] 04/25/2022 03:12:04 04/24/20 22 04/25/2022 UA W/REF JOLEEN CULTU RE urine hemoglobin NEGATI VE (neg) Not Available [facility] (Centralized Electronic Ordering - All Locations) Patient Can Go To The Location Of Their Choice, [id number] 04/25/2022 03:12:04 04/24/20 22 04/25/2022 UA W/REF JOLEEN CULTU RE urine nitrite NEGATI VE (neg) Not Available [facility] (Centralized Electronic Ordering - All Locations) Patient Can Go To The Location Of Their Choice, [id number] 04/25/2022 03:12:04 04/24/20 22 04/25/2022 UA W/REF JOLEEN CULTU RE urine leukocyte NEGATI VE (neg) Not Available [facility] (Centralized Electronic Ordering - All Locations) Patient Can Go To The Location Of Their Choice, [id number] 04/25/2022 03:12:04 04/24/20 22 04/25/2022 UA W/REF JOLEEN CULTU RE urobilinogen NORMAL mg/dL (norm) Not Available [facility] (Centralized Electronic Ordering - All Locations) Patient Can Go To The Location Of Their Choice, [id number] 04/25/2022 03:12:04 04/24/20 22 04/25/2022 UA W/REF JOLEEN CULTU RE urine WBCs <1 /hpf (0-5) Not Available [facility] (Centralized Electronic Ordering - All Locations) Patient Can Go To The Location Of Their Choice, [facility] 04/25/2022 03:12:04 04/24/20 22 04/25/2022 UA W/REF JOLEEN CULTU RE urine RBCs NONE SEEN /hpf (0-3) Not Available [facility] (Centralized Electronic Ordering - All Locations) Patient Can Go To The Location Of Their Choice, [facility] 04/25/2022 03:12:04 04/24/20 22 04/25/2022 UA W/REF JOLEEN CULTU RE bacteria SLIGHT hpf (neg) abnormal Not Available [facility] (Centralized Electronic Ordering - All Locations) Patient Can Go To The Location Of Their Choice, [facility] [place] 04/25/2022 03:12:04 04/24/20 22 04/25/2022 UA W/REF JOLEEN CULTU RE mucus SLIGHT /lpf Not Available [facility] (Centralized Electronic Ordering - All Locations) Patient Can Go To The Location Of Their Choice, [facility] 04/25/2022 03:12:04 04/24/20 22 04/25/2022 UA W/REF OJLEEN CULTU RE squamous epith 1 /hpf (0-8) Not Available [facility] (Centralized Electronic Ordering - All Locations) Patient Can Go To The Location Of Their Choice, [facility] [place] 04/25/2022 03:12:04 04/24/20 22 04/25/2022 UA W/REF JOLEEN CULTU RE hyaline cast 3 lpf (0-2) high Not Available [facility] (Centralized Electronic Ordering - All Locations) Patient Can Go To The Location Of Their Choice, [facility] [place] 04/25/2022 03:12:04 04/24/20 22 04/25/2022 UA W/REF JOLEEN CULTU RE clarity CLEAR (clear ) Not Available [facility] (Centralized Electronic Ordering - All Locations) Patient Can Go To The Location Of Their Choice, [facility] 04/25/2022 03:12:04 04/24/20 22 04/25/2022 UA W/REF JOLEEN CULTU RE culture indication CULTUR E NOT INDICA SIMONE Not Available [facility] (Centralized Electronic Ordering - All Locations) Patient Can Go To The Location Of Their Choice, [id number] 04/25/2022 03:12:04 Result Notes None recorded. Medical [...] Available N ot Available [employer] active Not Available Not Available Not Available [...] [id number] Kapil Garcia MD Main - [facility] [address] [place] [phone] 04/24/2022 13:50:34 04/29/2022 15:28:00 Dysuria [id number] R30.0 Seen by PCP yesterday who said [...] Bowser Member ID Guarantor Name 10/18/2023 1 [facility] - DOS PRIOR TO 2022 - DUAL ELIGIBLE (MEDICARE REPLACEMENT/ADV ANTAGE - HMO) Sally Rodriguez [id number] Sally Rodriguez 10/18/2023 1 [facility] - DOS ON OR AFTER 2022 - DUAL ELIGIBLE - GROUP HOME OPTIONS AND ONE CARE (MEDICARE REPLACEMENT/ADV ANTAGE - HMO) Sally Rodriguez [id number] Sally Rodriguez Notes Date Note Type Note [...] .................. .................. .................. .................. .................. .................. ............... Driver/Guide Note: Sc12 to address for uti symptoms. [...] .................. ............... Disposition: Fulfilled Kapil Garcia MD [address] [place] [address],[address] [facility], [place], [phone], [employer] 04/24/2022 20:37:39 OBGyn Episode No OBEpisode recorded.
--- OUTSIDE RECORDS SUMMARY | 2025-05-25 15:45 | XMS_ITS | Clinical Summary ---
Author Organization [facility] Address [address] [place] [address] Phone Care Team Providers Care Plc Technician Name Role Phone Sallie Peña MD Primary [...] Visit [facility] [address] [phone] Kena Lamb ARNP [address] [phone] Health Maintenance Due Date Last Done Comments [...] Res ult from Last 3 Months Insurance [facility] JERI ELLISON [id number] Care Teams Plc Technician Relationship Specialty Start Date End Date Sallie Peña MD [address] PCP - General Internal Medicine 12/06/24
== END 2025-05-25 14:41 | disposition home or self-care (01) ==
LOC: HO.CT 14:40
PROVIDERS: PCP Internal Medicine; Visit Provider Nurse Practitioner Family
DX: J47.9 Bronchiectasis, uncomplicated (principal); R05.9 Cough, unspecified
CPT/HCPCS: 71250

== ENCOUNTER → 2025-05-25 14:43 | Outpatient (BNV) | payer OTHER, SELFPAY | PROVIDERS: PCP Internal Medicine; Visit Provider Radiology Diagnostic Radiology | DX: J47.9 Bronchiectasis, uncomplicated (principal); R19.8 Other specified symptoms and signs involving the digestive system and abdomen | CPT/HCPCS: 71250 ==